=== PATIENT | female | born 1985 | race African-American/Black ===

== ENCOUNTER 2017-05-01 22:57 | Emergency (ER) | payer MEDICAID ==
[2017-05-01 23:16] VITALS: BP 160/103
--- NOTE | 2017-05-01 23:53 | ER Document Report ---
ED General - General Chief Complaint: Cold Symptoms Stated Complaint: COUGH,CONGESTION Time Seen by Provider: 05/01/17 23:52 Notes: 32-year-old female with morbid obesity and daily smoking presents with congestion cough and shortness of breath worse at night with subjective wheezing moderate. 3 days.. She is coughing up phlegm but no blood. She has no leg swelling or chest pain. This happens every year and she has had pneumonia before. TRAVEL OUTSIDE OF THE [place] IN LAST 30 DAYS: No - Related Data Allergies/Adverse Reactions: No Known Allergies Allergy (Verified 03/18/17 15:17) Past Medical History - Social History Smoking Status: Current Every Day Smoker Chew tobacco use (# tins/day): No Smoking Education Provided: Yes - The patient ED visit today was directly related to their abuse of tobacco. Frequency of alcohol use: Rare Drug Abuse: None Family History: Reviewed & Not Pertinent Patient has suicidal ideation: No Patient has homicidal ideation: No - Past Medical History Cardiac Medical History: Reports: Hx Hypertension Pulmonary Medical History: Reports: Hx Bronchitis Denies: Hx Tuberculosis Renal/ Medical History: Denies: Hx Kidney Stones, Hx Peritoneal Dialysis, Hx Pelvic Inflammatory Disease Psychiatric Medical History: Reports: Hx Depression Past Surgical History: Reports: Hx Section - x1, Hx Cholecystectomy. Denies: Hx Pacemaker - Immunizations Hx Diphtheria, Pertussis, Tetanus Vaccination: Yes Hx Pneumococcal Vaccination: 05/12/11 Review of Systems - Review of Systems Notes: REVIEW OF SYSTEMS GEN: Denies fever, chills, weight loss ENT: Denies sore throat, nasal discharge, ear pain EYES: Denies blurry vision, eye pain, discharge CV: Denies chest pain, palpitations, edema RESP: Cough congestion shortness of breath GI: Denies abdominal pain, nausea, vomiting, diarrhea MSK: Denies joint pain/swelling, edema, SKIN: Denies rash, skin lesions LYMPH: Denies swollen glands/lymph nodes NEURO: Denies headache, focal weakness or numbness, dizziness PSYCH: Denies depression, suicidal or homicidal ideation PHYSICAL EXAMINATION General: No distress, morbid obesity Head: Atraumatic, normocephalic ENT: Mouth normal, oropharynx moist, no exudates or tonsillar enlargement Eyes: Conjunctiva normal, pupils equal, lids normal Neck: No JVD, supple, no guarding CVS: Normal rate, regular rhythm, no murmurs Resp: No resp distress, equal and normal breath sounds bilaterally GI: Nondistended, soft, no tenderness to palpation, no rebound or guarding Ext: No deformities, no edema, normal range of motion in upper and lower ext Back: No CVA or midline TTP Skin: No rash, warm Lymphatic: No lymphadeopathy noted Neuro: Awake, alert. Face symmetric. GCS 15. Physical Exam - Vital signs Vitals: Temp Pulse Resp BP Pulse Ox 98.6 F 99 18 160/103 H 96 05/01/17 23:12 05/01/17 23:12 05/01/17 23:12 05/01/17 23:12 05/01/17 23:12 Course - Re-evaluation Re-evalutation: 05/01/17 23:58 . Morbidly obese smoker presents with cough congestion shortness of breath. She is not wheezing her oxygen level is normal, and she is well-appearing. Possible bronchitis but doubt pneumonia, no need for x-ray at this time. Will prescribe inhaler and gave smoking cessation counseling. I have discussed with the patient there likely diagnosis, aftercare plan, follow -up plans and my usual and customary return precautions. They verbalized understanding of this. - Vital Signs Vital signs: Temp Pulse Resp BP Pulse Ox 98.6 F 99 18 160/103 H 96 05/01/17 23:12 05/01/17 23:12 05/01/17 23:12 05/01/17 23:12 05/01/17 23:12 Discharge - Discharge Clinical Impression: Upper respiratory infection Qualifiers: URI type: unspecified URI Qualified Code(s): J06.9 - Acute upper respiratory infection, unspecified Condition: Good Disposition: HOME, SELF-CARE Instructions: Upper Respiratory Infection, or Child ([facility]) Prescriptions: Albuterol Sulfate [Proair HFA Inhalation Aerosol 8.5 gm MDI] 2 puff IH Q4H PRN # 1 mdi PRN Reason:
== END 2017-05-02 00:14 | disposition home or self-care (01) ==
LOC: ER 22:57
DX: J06.9 Acute upper respiratory infection, unspecified (principal); R05 Cough; R06.02 Shortness of breath; E66.01 Morbid (severe) obesity due to excess calories; Z68.45 Body mass index [BMI] 70 or greater, adult; I10 Essential (primary) hypertension; F17.200 Nicotine dependence, unspecified, uncomplicated; Z71.6 Tobacco abuse counseling; Z87.01 Personal history of pneumonia (recurrent)
CPT/HCPCS: 99283

== ENCOUNTER 2017-10-19 16:55 | Emergency (ER) | payer MEDICAID ==
--- NOTE | 2017-10-19 17:04 | ER Document Report ---
HPI - HPI Pain Level: 3 - REPRODUCTIVE Reproductive: REPORTS: : Past Medical History - Social History Family History: Reviewed & Not Pertinent - Past Medical History Cardiac Medical History: Reports: Hx Hypertension Pulmonary Medical History: Reports: Hx Bronchitis Denies: Hx Tuberculosis Renal/ Medical History: Denies: Hx Kidney Stones, Hx Peritoneal Dialysis, Hx Pelvic Inflammatory Disease Psychiatric Medical History: Reports: Hx Depression Past Surgical History: Reports: Hx Section - x1, Hx Cholecystectomy. Denies: Hx Pacemaker - Immunizations Hx Diphtheria, Pertussis, Tetanus Vaccination: Yes Hx Pneumococcal Vaccination: 05/12/11 Vertical Provider Document - INFECTION CONTROL TRAVEL OUTSIDE OF THE [place] IN LAST 30 DAYS: No Course - Vital Signs Vital signs: Temp Pulse Resp BP Pulse Ox 99.6 F 109 H 20 161/126 H 99 10/19/17 17:01 10/19/17 17:01 10/19/17 17:01 10/19/17 17:01 10/19/17 17:01 Discharge - Discharge Referrals: EMILIANA PARSONS PA-C [Primary Care Provider] - Follow up as needed
[2017-10-19] MEDS ORDERED: CLINDAMYCIN PHOSPHATE INJ 300 MG/2 ML SDV IV ONE (17:09)
[2017-10-19] MEDS ORDERED: NORMAL SALINE 1000 ML 1,000 ML IV ONE (17:09)
[2017-10-19] MEDS ORDERED: KETOROLAC TROMETHAMINE INJ/PF 30 MG/1 ML SDV IV ONE (17:09)
[2017-10-19] MEDS ORDERED: DEXAMETHASONE SOD PHOS INJ 10 MG/1 ML VIAL IV ONE (17:09)
--- NOTE | 2017-10-19 17:15 | ER Document Report ---
ED Medical Screen (RME) - General Chief Complaint: Cold Symptoms Stated Complaint: COUGHING/THROAT PAIN Time Seen by Provider: 10/19/17 17:04 Mode of Arrival: Ambulatory Information source: Patient Notes: 32-year-old morbidly obese female is complaining of sore throat tonsillitis since Friday. She did see her primary care doctor on Friday but the symptoms started after that. She is unable to eat or drink because of the pain. She does have hot potato voice but upon exam she does not have a peritonsillar abscess there is increased redness in the soft palate on the right but the uvula is midline and there is no edema. Bilateral tonsils are exudative with tender anterior cervical nodes. Her blood pressure is elevated 161/126 she states she took her blood pressure medicine this morning but she states it is like this because of the pain. We will recheck it and she denies diabetes. TRAVEL OUTSIDE OF THE [place] IN LAST 30 DAYS: No - Related Data Allergies/Adverse Reactions: No Known Allergies Allergy (Verified 03/18/17 15:17) Past Medical History - Past Medical History Cardiac Medical History: Reports: Hx Hypertension Pulmonary Medical History: Reports: Hx Bronchitis Denies: Hx Tuberculosis Renal/ Medical History: Denies: Hx Kidney Stones, Hx Peritoneal Dialysis, Hx Pelvic Inflammatory Disease Psychiatric Medical History: Reports: Hx Depression Past Surgical History: Reports: Hx Section - x1, Hx Cholecystectomy. Denies: Hx Pacemaker - Immunizations Hx Diphtheria, Pertussis, Tetanus Vaccination: Yes Physical Exam - Vital signs Vitals: Temp Pulse Resp BP Pulse Ox 99.6 F 109 H 20 161/126 H 99 10/19/17 17:10/19/17 17:10/19/17 17:01 10/19/17 17:01 10/19/17 17:01 Course - Vital Signs Vital signs: Temp Pulse Resp BP Pulse Ox 99.6 F 109 H 20 161/126 H 99 10/19/17 17:01 10/19/17 17:01 10/19/17 17:01 10/19/17 17:01 10/19/17 17:01 Doctor's Discharge - Discharge Referrals: EMILIANA PARSONS PA-C [Primary Care Provider] - Follow up as needed
--- NOTE | 2017-10-19 17:55 | ER Document Report ---
ED Medical Screen (RME) - General Chief Complaint: Cold Symptoms Stated Complaint: COUGHING/THROAT PAIN Time Seen by Provider: 10/19/17 17:04 Mode of Arrival: Ambulatory Notes: Patient is a 32-year-old female who presents emergency department the chief complaint of sore throat that started on Friday. Patient admits to muffled speech starting yesterday and inability to tolerate secretions for the past 48 hours. Patient denies any fevers and admits to shortness of breath. TRAVEL OUTSIDE OF THE [place] IN LAST 30 DAYS: No - Related Data Allergies/Adverse Reactions: No Known Allergies Allergy (Verified 03/18/17 15:17) Past Medical History - Past Medical History Cardiac Medical History: Reports: Hx Hypertension Pulmonary Medical History: Reports: Hx Bronchitis Denies: Hx Tuberculosis Renal/ Medical History: Denies: Hx Kidney Stones, Hx Peritoneal Dialysis, Hx Pelvic Inflammatory Disease Psychiatric Medical History: Reports: Hx Depression Past Surgical History: Reports: Hx Section - x1, Hx Cholecystectomy. Denies: Hx Pacemaker - Immunizations Hx Diphtheria, Pertussis, Tetanus Vaccination: Yes Physical Exam - Vital signs Vitals: Temp Pulse Resp BP Pulse Ox 99.6 F 109 H 20 161/126 H 99 10/19/17 17:01 10/19/17 17:01 10/19/17 17:01 10/19/17 17:01 10/19/17 17:01 - Notes Notes: HEENT: NCAT, pale conjunctiva, extraocular movements intact, pupils PERRL. external ear normal, no evidence of external auditory canal tenderness, blood/ drainage, cerumen impaction, TM intact without evidence of effusion, bulging, injection, MMM, Uvula midline. Airway patent. Evidence of right tonsillar enlargement, no visible peritonsillar abscess, retropharyngeal abscess. patients voice is muffled and continuously spitting into a cup Course - Vital Signs Vital signs: Temp Pulse Resp BP Pulse Ox 99.6 F 109 H 20 161/126 H 99 10/19/17 17:01 10/19/17 17:01 10/19/17 17:01 10/19/17 17:01 10/19/17 17:01 Doctor's Discharge - Discharge Referrals: EMILIANA PARSONS PA-C [Primary Care Provider] - Follow up as needed
[2017-10-19 18:28] LABS: ABSOLUTE BASOPHILS # (AUTO) 0.1 10^3/uL (0.0-0.2); ABSOLUTE LYMPHOCYTES (AUTO) 1.9 10^3/uL (0.5-4.7); ABSOLUTE NEUT (AUTO) 9.2 10^3/uL (1.7-8.2); BASOPHILS % (AUTO) 0.6 % (0-2); EOSINOPHILS % (AUTO) 0.4 % (0-6); HEMATOCRIT 45.2 % (36.0-47.0); HEMOGLOBIN 14.2 g/dL (12.0-15.5); LYMPHOCYTES % (AUTO) 15.4 % (13-45); MEAN CORPUSCULAR HEMOGLOBIN 22.9 pg (27.0-33.4); MEAN CORPUSCULAR HGB CONC 31.5 g/dL (32.0-36.0); MEAN CORPUSCULAR VOLUME 73 fl (80-97); MONOCYTES % (AUTO) 7.9 % (3-13); PLATELET COUNT 295 10^3/uL (150-450); RED BLOOD COUNT 6.21 10^6/uL (3.72-5.28); SEGMENTED NEUTROPHILS % (AUTO) 75.7 % (42-78); TOTAL CELLS COUNTED % (AUTO) 100 %; WHITE BLOOD COUNT 12.2 10^3/uL (4.0-10.5)
--- NOTE | 2017-10-19 18:49 | ER Document Report ---
ED General - General Chief Complaint: Cold Symptoms Stated Complaint: COUGHING/THROAT PAIN Time Seen by Provider: 10/19/17 17:04 Mode of Arrival: Ambulatory Notes: 32-year-old female presents emergency department with sore throat, right ear pain, cough for the last 2 days. Patient states that her daughter has similar symptoms. Patient's been taking [id number] medication with minimal relief of symptoms. Patient states that she is able to swallow and has been eating and drinking despite her throat pain. TRAVEL OUTSIDE OF THE [place] IN LAST 30 DAYS: No - HPI Onset: Last week Onset/Duration: Gradual Quality of pain: Achy Severity: Mild Associated symptoms: Nonproductive cough, Earache, Sore throat Exacerbated by: Denies Relieved by: Denies Similar symptoms previously: No Recently seen / treated by doctor: No - Related Data Allergies/Adverse Reactions: No Known Allergies Allergy (Verified 03/18/17 15:17) Past Medical History - General Information source: Patient - Social History Smoking Status: Former Smoker Family History: Reviewed & Not Pertinent - Past Medical History Cardiac Medical History: Reports: Hx Hypertension Pulmonary Medical History: Reports: Hx Bronchitis Denies: Hx Tuberculosis Renal/ Medical History: Denies: Hx Kidney Stones, Hx Peritoneal Dialysis, Hx Pelvic Inflammatory Disease Psychiatric Medical History: Reports: Hx Depression Past Surgical History: Reports: Hx Section - x1, Hx Cholecystectomy. Denies: Hx Pacemaker - Immunizations Hx Diphtheria, Pertussis, Tetanus Vaccination: Yes Hx Pneumococcal Vaccination: 05/12/11 Review of Systems - Review of Systems Constitutional: No symptoms reported EENT: Throat pain Cardiovascular: No symptoms reported Respiratory: Cough Gastrointestinal: No symptoms reported Genitourinary: No symptoms reported Musculoskeletal: No symptoms reported Skin: No symptoms reported Neurological/Psychological: No symptoms reported -: Yes All other systems reviewed and negative Physical Exam - Vital signs Vitals: Temp Pulse Resp BP Pulse Ox 99.6 F 109 H 20 161/126 H 99 10/19/17 17:01 10/19/17 17:01 10/19/17 17:01 10/19/17 17:01 10/19/17 17:01 - Notes Notes: PHYSICAL EXAMINATION: GENERAL: Well-appearing, well-nourished and in no acute distress. HEAD: Atraumatic, normocephalic. EYES: Pupils equal round and reactive to light, extraocular movements intact, conjunctiva are normal. ENT: Nares patent, No trismus. Erythema to the R posterior pharynx. Uvula midline. Tender anterior cervical lymph nodes. Handling secretions. NECK: Normal range of motion, supple, anterior cervical lymphadenopathy. LUNGS: Breath sounds clear to auscultation bilaterally and equal. No wheezes rales or rhonchi. HEART: Regular rate and rhythm without murmurs ABDOMEN: Soft, nontender, nondistended abdomen. No guarding, no rebound. No masses appreciated. Female : deferred Musculoskeletal: Normal range of motion, no pitting or edema. No cyanosis. NEUROLOGICAL: Cranial nerves grossly intact. Normal speech, normal gait. Normal sensory, motor exams PSYCH: Normal mood, normal affect. SKIN: Warm, Dry, normal turgor, no rashes or lesions noted. Course - Re-evaluation Re-evalutation: 10/19/17 22:[address] Sara Suarez, ENT, at [facility]. As the patient is not having difficulty breathing or swallowing and the size of the peritonsillar abscess is small, he would like the patient to follow up in his office tomorrow AM. He says he can see the patient at 8AM. I will provide the patient with his office address and phone number. Patient received clindamycin and steroids in the ED. He would like the patient to be discharged with a rx for clindamycin and predisone. I discussed the plan of care with the patient. She has transportation to Dr. Suarez's office in the AM. Patient is reliable. Patient told that if she begins having difficulty breathing or swallowing to return to the ED immediately. - Vital Signs Vital signs: Temp Pulse Resp BP Pulse Ox 99.6 F 109 H 21 H 157/105 H 95 10/19/17 17:01 10/19/17 17:01 10/19/17 20:01 10/19/17 20:01 10/19/17 20:01 - Laboratory Result Diagrams: 10/19/17 18:00 10/19/17 18:00 Laboratory results interpreted by me: 10/19/17 18:00 WBC 12.2 H RBC 6.21 H MCV 73 L MCH 22.9 L MCHC 31.5 L RDW 17.0 H Absolute Neutrophils 9.2 H Discharge - Discharge Clinical Impression: Peritonsillar abscess, Strep throat Condition: Stable Disposition: HOME, SELF-CARE Instructions: Strep Throat ([facility]), Kelley-Tonsillar Abscess ([facility]) Additional Instructions: Follow up with Dr. Sara Suarez in the office tomorrow: [address] [place], [address] Prescriptions: Clindamycin HCl [Cleocin 300 mg Capsule] 300 mg PO Q6 #28 capsule Prednisone 50 mg PO DAILY #5 tablet Referrals: EMILIANA PARSONS PA-C [Primary Care Provider] - Follow up as needed SARA SUAREZ MD [ACTIVE STAFF] - Follow up as needed
[2017-10-19] MEDS ORDERED: CLONIDINE HCL 0.1 MG TABLET PO ONE (18:52)
[2017-10-19 19:54] LABS: ANION GAP 14 (5-19); BLOOD UREA NITROGEN 9 mg/dL (7-20); CALCIUM 9.3 mg/dL (8.4-10.2); CARBON DIOXIDE 25 mmol/L (22-30); CHLORIDE 105 mmol/L (98-107); GLUCOSE 103 mg/dL (75-110); SODIUM 144.4 mmol/L (137-145)
--- NOTE | 2017-10-19 21:47 | RADIOLOGY REPORT (SQ) ---
EXAM DESCRIPTION: CT SOFT TISSUE NECK WITH COMPLETED DATE/TIME: 10/19/2017 8:49 pm REASON FOR STUDY: swelling to the R throat/neck COMPARISON: None. TECHNIQUE: Post IV contrasted scanning from skull base through lung apices with review of bone, soft tissue and lung windows. Reconstructed coronal and sagittal MPR images reviewed. All images stored on PACS. All CT scanners at this facility use dose modulation, iterative reconstruction, and/or weight based d osing when appropriate to reduce radiation dose to as low as reasonably achievable (ALARA). [facility]: Dose Right [facility]: CareDose [facility]: Dose Right [facility]: Teradose 4D [facility]: MX Logic CONTRAST TYPE AND DOSE: contrast/concentration: Isovue 370.00 mg/ml; Total Contrast Delivered: 75.0 ml; Total Saline Delivered: 55.0 ml RENAL FUNCTION: None required. The patient is less than 50 years old. RADIATION DOSE: CT Rad equipment meets quality standard of care and radiation dose reduction techniq ues were employed. CTDIvol: 21.0 mGy. DLP: 627 mGy-cm. . LIMITATIONS: There is artifact from the patient's body habitus. There is streak artifact from the d ental amalgam. FINDINGS: SKULL BASE: Intact. MAJOR SALIVARY GLANDS: No inflammatory changes. LYMPHADENOPATHY: There are bilateral enlarged cervical lymph nodes. A right internal jugular lymph c ramya lymph node is measuring 1.9 x 2.0 cm. The left internal jugular chain lymph node is measuring 1 .9 x 1.5 cm MUCOSAL MASSES OR ASYMMETRY: The palatine tonsils are enlarged. There is a 1.4 x 1.7 cm low attenuat ion area at the right tonsil. The adenoids are enlarged. LARYNX/CORDS: No obvious abnormal findings. VASCULAR STRUCTURES: The major vessels are patent. LUNG APICES: Clear. BONES: Intact. THYROID: No obvious masses. PARANASAL SINUSES: No air-fluid levels. OTHER: Radiopaque piercing is noted at the soft tissues overlying the right maxilla. IMPRESSION: 1. Enlarged adenoids and palatine tonsils. A 1.4 x 1.7 cm low attenuation area at the ri ght tonsil, may represent a peritonsillar abscess. 2. Bilateral cervical adenopathy. TECHNICAL DOCUMENTATION: JOB ID: [id number] CA- Quality ID # 436: Final reports with documentation of one or more dose reduction techniques (e.g., Au tomated exposure control, adjustment of the mA and/or kV according to patient size, use of iterative reconstruction technique) 2010 [employer]- All Rights Reserved Reading location - IP/workstation name: [email or web address]
[2017-10-19 21:55] VITALS: BP 157/105
== END 2017-10-19 23:00 | disposition home or self-care (01) ==
LOC: ER 16:55
DX: J36 Peritonsillar abscess (principal); B95.5 Unspecified streptococcus as the cause of diseases classified elsewhere; H92.01 Otalgia, right ear; R05 Cough; I10 Essential (primary) hypertension; Z87.891 Personal history of nicotine dependence
CPT/HCPCS: 99284; 96361; 96375; 96365; 36415; 87040; 87880; 84703; 85025; 80048; 70491; J3490 ×2; J1885; J7030; J1100

== ENCOUNTER 2018-08-11 15:43 | Emergency (ER) | payer MEDICAID ==
[2018-08-11 15:55] VITALS: BP 157/123
--- NOTE | 2018-08-11 16:24 | ER Document Report ---
HPI - HPI Time Seen by Provider: 08/11/18 16:06 Pain Level: 3 Notes: Patient is a 33-year-old female with no significant past medical history aside from hypertension and obesity who presents emergency department complaining of left pain near her deltoid that has been constant over the last day and a half. Patient states that the pain is worse after she gets done performing activities, but is described as mild. Pain does not radiate. She can isolate the one spot that hurts when she pushes on it to reproduce her symptoms. Denies drug allergies. No significant cardiopulmonary medical history. She is otherwise eating and drinking without difficulty. She is urinating normally and having normal bowel movements. She is able to ambulate without any worsening pain or dyspnea on exertion. She has not taken her blood pressure medicine in a couple weeks because she has been out. She is on lisinopril 10 mg daily. Denies any headache, fever, neck pain, URI, sore throat, chest pain, palpitations, syncope, cough, shortness of breath, wheeze, dyspnea, abdominal pain, nausea/vomiting/diarrhea, urinary retention, dysuria, hematuria, loss of control of bowel or bladder, numbness/tingling, saddle anesthesia, muscle paralysis/weakness, or rash. - ROS Systems Reviewed and Negative: Yes All other systems reviewed and negative - REPRODUCTIVE Reproductive: DENIES: : - DERM Skin Color: Normal Past Medical History - Social History Smoking Status: Current Every Day Smoker Frequency of alcohol use: None Drug Abuse: None Family History: Reviewed & Not Pertinent Patient has suicidal ideation: No Patient has homicidal ideation: No - Past Medical History Cardiac Medical History: Reports: Hx Hypertension Pulmonary Medical History: Reports: Hx Bronchitis Denies: Hx Tuberculosis Renal/ Medical History: Denies: Hx Kidney Stones, Hx Peritoneal Dialysis, Hx Pelvic Inflammatory Disease Psychiatric Medical History: Reports: Hx Depression Past Surgical History: Reports: Hx Section - x1, Hx Cholecystectomy. Denies: Hx Pacemaker - Immunizations Hx Diphtheria, Pertussis, Tetanus Vaccination: Yes Hx Pneumococcal Vaccination: 05/12/11 Vertical Provider Document - CONSTITUTIONAL Agree With Documented VS: Yes Notes: PHYSICAL EXAMINATION: GENERAL: Well-appearing, well-nourished and in no acute distress. HEAD: Atraumatic, normocephalic. EYES: Pupils equal round and reactive to light, extraocular movements intact, sclera anicteric, conjunctiva are normal. ENT: Nares patent and without discharge. oropharynx clear without exudates. No tonsilar hypertrophy or erythema. Moist mucous membranes. NECK: Normal range of motion, supple without lymphadenopathy LUNGS: Breath sounds clear to auscultation bilaterally and equal. No wheezes rales or rhonchi. HEART: Regular rate and rhythm without murmurs, rubs, gallops. Musculoskeletal: + reproducible tenderness when palpating the insertion of the deltoid muscle near the deltoid bursa. FROM to passive/active. Strength 5+/5. No asymmetry to the UE's b/l. N/V intact distal. Extremities: No cyanosis, clubbing, or edema b/l. Peripheral pulses 2+. Capillary refill less than 3 seconds. NEUROLOGICAL: Normal speech, normal gait. PSYCH: Normal mood, normal affect. SKIN: Warm, Dry, normal turgor, no rashes or lesions noted. - INFECTION CONTROL TRAVEL OUTSIDE OF THE [place] IN LAST 30 DAYS: No Course - Re-evaluation Re-evalutation: 08/11/18 Patient is an afebrile, well-hydrated, 33-year-old female who presents emergency department with left deltoid pain, suspect bursitis versus tendinitis. Vitals are acceptable without significant tachycardia, tachypnea, or hypoxia. PE is otherwise unremarkable for any neurovascular compromise, obvious tendon/ligament rupture, obvious fracture/dislocation, septic joint, DVT. Patient has reproducible tenderness at the deltoid bursa which correlates with her pain described. Patient otherwise does not have any and has not had any chest pain, dyspnea on exertion, shortness of breath. There is no asymmetry to her upper extremities or other evidence of DVT as her symptoms are on the lateral arm and not medial. She is nontoxic-appearing and tolerating p.o. without difficulty. EKG unremarkable. No labs or other imaging warranted. Low suspicion for any ACS, PE, pneumothorax, pericarditis, dissection, or otherwise stated above. Patient aware that condition can change and she needs to monitor symptoms and seek medical attention with acute changes. Patient to recheck with your PCM in 2-3 days. Return to the ED with any worsening/concerning symptoms. Patient is in agreement. - Vital Signs Vital signs: Temp Pulse Resp BP Pulse Ox 98.1 F 93 18 157/123 H 100 08/11/18 15:54 08/11/18 15:54 08/11/18 15:54 08/11/18 15:54 08/11/18 15:54 Discharge - Discharge Clinical Impression: Pain of left deltoid Condition: Stable Disposition: HOME, SELF-CARE Additional Instructions: Rest, Ice, Compression Tylenol/ibuprofen as needed Light stretches daily Strength exercises as able Moist heat and massage may help F/u with your PCP in 2-3 days for a recheck Consider consult(s) with Orthopedics/physical therapy for ongoing/worsening symptoms Return to the ED with any worsening symptoms and/or development of fever, headache, chest pain, palpitations, syncope, shortness of breath, trouble breathing, abdominal pain, n/v/d, muscle weakness/paralysis, numbness/tingling, swelling, redness, or other worsening symptoms that are concerning to you. Prescriptions: Lisinopril [Prinivil 10 mg Tablet] 10 mg PO DAILY #15 tablet Forms: Elevated Blood Pressure Referrals: EMILIANA PARSONS PA-C [Primary Care Provider] - 08/13/18 [facility] [Provider Group] - Follow up as needed
[2018-08-11] MEDS ORDERED: LISINOPRIL 10 MG TABLET PO ONE (16:25)
--- NOTE | 2018-08-11 17:26 | EKG REPORT ---
SEVERITY:- BORDERLINE ECG - SINUS RHYTHM NONSPECIFIC ST-T CHANGES- INFERIOR LEADS : Confirmed by: Dean Goel MD 11-Aug-2018 17:25:22
== END 2018-08-11 17:10 | disposition home or self-care (01) ==
LOC: ER 15:43
DX: M25.512 Pain in left shoulder (principal); I10 Essential (primary) hypertension; E66.9 Obesity, unspecified; Z79.899 Other long term (current) drug therapy; F17.200 Nicotine dependence, unspecified, uncomplicated
CPT/HCPCS: 93005; 99283; 93010; J3490

== ENCOUNTER 2019-02-22 07:55 | Emergency (ER) | payer MEDICAID ==
--- NOTE | 2019-02-22 08:49 | ER Document Report ---
ED Skin Rash/Insect Bite/Abscs - General Chief Complaint: Rash Stated Complaint: RASH Time Seen by Provider: 02/22/19 08:46 Primary Care Provider: ANDERSON SALAMANCA DO [ACTIVE STAFF] - Follow up in 1 week (for dermatology follow up) EMILIANA PARSONS PA-C [Primary Care Provider] - Follow up in 1 week TRAVEL OUTSIDE OF THE [place] IN LAST 30 DAYS: No - HPI Notes: 33 year old female to the ED with an itchy rash all over her body and possible yeast rash in her groin for the past three days. States that she has "bites all over her arms and legs". States she began to feel itchy and "wet" in her groin three days ago as well. Does report vaginal discharge and would like to be tested and treated for STD. States she has one partner and does not use any protection. Denies any other complaints. - Related Data Allergies/Adverse Reactions: No Known Allergies Allergy (Verified 08/11/18 15:49) Past Medical History - General Information source: Patient - Social History Smoking Status: Current Every Day Smoker Frequency of alcohol use: Occasional Drug Abuse: None Family History: Reviewed & Not Pertinent Patient has suicidal ideation: No Patient has homicidal ideation: No - Past Medical History Cardiac Medical History: Reports: Hx Hypertension Pulmonary Medical History: Reports: Hx Bronchitis Denies: Hx Tuberculosis Renal/ Medical History: Denies: Hx Kidney Stones, Hx Peritoneal Dialysis, Hx Pelvic Inflammatory Disease Psychiatric Medical History: Reports: Hx Depression Past Surgical History: Reports: Hx Section - x1, Hx Cholecystectomy. Denies: Hx Pacemaker - Immunizations Hx Diphtheria, Pertussis, Tetanus Vaccination: Yes Hx Pneumococcal Vaccination: 05/12/11 Review of Systems - Review of Systems Constitutional: denies: Chills, Fever EENT: No symptoms reported Cardiovascular: denies: Chest pain, Palpitations, Dyspnea, Syncope, Dizziness Respiratory: denies: Cough, Short of breath Gastrointestinal: denies: Abdominal pain, Diarrhea, Nausea, Vomiting Genitourinary: denies: Frequency, Flank pain, Hematuria, Incontinence Female Genitourinary: See HPI, Vaginal discharge Skin: See HPI, Rash Neurological/Psychological: No symptoms reported -: Yes All other systems reviewed and negative Physical Exam - Vital signs Vitals: Temp Pulse Resp BP Pulse Ox 98.2 F 105 H 20 159/130 H 98 02/22/19 08:04 10/14/19 08:04 02/22/19 08:04 02/22/19 08:04 02/22/19 08:04 Interpretation: Normal - General General appearance: Appears well, Alert Notes: morbidly obese - HEENT Head: Normocephalic, Atraumatic Eyes: Normal Pupils: PERRL - Respiratory Respiratory status: No respiratory distress Chest status: Nontender Breath sounds: Normal Chest palpation: Normal - Cardiovascular Rhythm: Regular Heart sounds: Normal auscultation Murmur: No - Abdominal Inspection: Normal Distension: No distension Bowel sounds: Normal Tenderness: Nontender Organomegaly: No organomegaly - Genitourinary External exam: Normal Bimanuel exam: Normal. No: Cervical motion tender, Bladder/Urethral tender, Adnexal mass, Adnexal tenderness, Uterus enlarged Notes: chaperoned by RN. Swabs obtained for wet prep, GC/chlamydia. To the groin there is a well demarcated erythematous rash with satellite lesions. no superimposed infection - Back Back: Normal, Nontender. No: CVA tenderness - Neurological Neuro grossly intact: Yes Cognition: Normal Orientation: AAOx4 [place] Coma Scale Eye Opening: Spontaneous [place] Coma Scale Verbal: Oriented [place] Coma Scale Motor: Obeys Commands [place] Coma Scale Total: 15 Speech: Normal Motor strength normal: LUE, RUE, LLE, RLE Sensory: Normal - Psychological Associated symptoms: Normal affect, Normal mood - Skin Skin Temperature: Warm Skin Color: Normal Skin irregularity: Rash - there are multiple areas of excoriation to the skin to the arms, legs, abdomen. There are no palpulesor involvement of the soles and palms of the feet. no superimposed infections. Noted excoriations. Course - Re-evaluation Re-evalutation: Impression: Tinea cruris, will treat with nystatin powder. Dermatitis to the body. will send home with benadryl. Patient agrees with the plan. Will give Derm follow up. STD checking -- she would like empiric treatment for GC/Chlam. PCP follow up. - Vital Signs Vital signs: Temp Pulse Resp BP Pulse Ox 97.6 F 75 20 141/90 H 96 02/22/19 11:30 02/22/19 11:30 02/22/19 11:30 02/22/19 11:30 02/22/19 11:30 - Laboratory Laboratory results interpreted by me: 02/22/19 10:25 Urine Protein 30 H Urine Blood SMALL H Ur Leukocyte Esterase LARGE H Discharge - Discharge Clinical Impression: Screening examination for STD (sexually transmitted disease), Dermatitis, Tinea cruris Condition: Stable Disposition: HOME, SELF-CARE Instructions: Contact Dermatitis ([facility]) Additional Instructions: TAke medicines as prescribed. Follow up with tree surgeon helper listed. Follow up with primary care. Practice safe sex. Prescriptions: Hydroxyzine HCl [Atarax 50 mg Tablet] 50 mg PO PRN PRN #14 tablet PRN Reason: Fluconazole [Diflucan] 150 mg PO ONCE PRN #1 tablet PRN Reason: Clotrimazole/Betamethasone Dip [Lotrisone Cream 15 gm] 1 applic TP BID #1 tube Referrals: EMILIANA PARSONS PA-C [Primary Care Provider] - Follow up in 1 week ANDERSON SALAMANCA DO [ACTIVE STAFF] - Follow up in 1 week (for dermatology follow up)
[2019-02-22] MEDS ORDERED: AZITHROMYCIN 250 MG TABLET PO ONE (10:32)
[2019-02-22] MEDS ORDERED: DIPHENHYDRAMINE HCL 25 MG CAPSULE PO ONE (10:36)
[2019-02-22] MEDS ORDERED: CEFTRIAXONE INJ 250 MG VIAL IM ONE (10:36)
[2019-02-22 10:42] LABS: BACTERIA (WET MOUNT) 4+ BACTERIA SEEN; EPITHELIALS (WET MOUNT) 4+ EPITHELIALS SEEN; RBCS (WET MOUNT) RARE RBCS SEEN; T.VAGINALIS (WET MOUNT) TRICHOMONAS SEEN; WBCS (WET MOUNT) 3+ WBCS SEEN; YEAST (WET MOUNT) NO YEAST SEEN
[2019-02-22 10:48] LABS: APPEARANCE,URINE CLOUDY; BILIRUBIN,URINE NEGATIVE (NEGATIVE); COLOR,URINE AMBER; GLUCOSE, URINE NEGATIVE (NEGATIVE); KETONES,URINE NEGATIVE (NEGATIVE); LEUKOCYTE ESTERASE,URINE LARGE (NEGATIVE); NITRITE,URINE NEGATIVE (NEGATIVE); PROTEIN,URINE 30 mg/dL (NEGATIVE); URINE SPECIFIC GRAVITY 1.025; UROBILINOGEN,URINE NEGATIVE mg/dL (<2.0)
[2019-02-22 11:32] VITALS: BP 141/90
[2019-02-22 12:13] LABS: CHLAM PCR NOT DETECTED (NOT DETECT)
== END 2019-02-22 11:34 | disposition home or self-care (01) ==
LOC: ER 07:55
DX: B35.6 Tinea cruris (principal); L30.9 Dermatitis, unspecified; Z20.2 Contact with and (suspected) exposure to infections with a predominantly sexual mode of transmission; F17.200 Nicotine dependence, unspecified, uncomplicated; E66.01 Morbid (severe) obesity due to excess calories; I10 Essential (primary) hypertension; Z90.49 Acquired absence of other specified parts of digestive tract
CPT/HCPCS: 99283; 96372; 87210; 81025; 81001; 87491; 87591; Q0144; J3490; J0696

== ENCOUNTER 2019-09-02 22:18 | Inpatient (IN) | payer MEDICAID ==
[2019-09-03] MEDS ORDERED: PIPERACILLIN/TAZOBACTAM 4.5 GM VIAL IV ONE (01:54)
[2019-09-03] MEDS ORDERED: VANCOMYCIN HCL INJ 1000 MG VIAL IV ONE (01:54)
[2019-09-03] MEDS ORDERED: NORMAL SALINE IV ONE (01:54)
[2019-09-03] MEDS ORDERED: ONDANSETRON HCL INJ/PF 4 MG/2 ML SDV IV ONE (02:02)
[2019-09-03] MEDS ORDERED: MORPHINE SULFATE 10 MG/ML INJ IV ONE (02:02)
--- NOTE | 2019-09-03 02:05 | ER Document Report ---
Entered by JENSEN MEHTA SCRIBE 09/03/19 0136 Acting as scribe for:KAREL CHRISTOPHER IV, MD ED Skin Rash/Insect Bite/Abscs - General Mode of Arrival: Ambulatory Information source: Patient TRAVEL OUTSIDE OF THE [place] IN LAST 30 DAYS: No - Related Data Home Medications: HTN <KAREL CHRISTOPHER IV - Last Filed: 09/03/19 05:57> <DOMINGUEZ RAI - Last Filed: 09/03/19 08:21> - General Chief Complaint: Abscess Stated Complaint: BUTT CHEEK PAIN Time Seen by Provider: 09/03/19 01:33 Primary Care Provider: EMILIANA PARSONS PA-C [Primary Care Provider] - Follow up as needed Notes: This 34 year old female patient presents to the ED today with complaints of a right gluteal abscess and pain for the past x8 days. Patient states that she has been trying to treat the abscess since onset, but notes that it is difficult for her to keep the area clean. She reports that the abscess "popped on its own" and that when her sister went to evaluate it, there was a "hole", so decided to come to the ED. She notes that her weight was checked x1.5-2 months ago and that she weighs approximately x415 lbs. (KAREL CHRISTOPHER IV) - Related Data Allergies/Adverse Reactions: No Known Allergies Allergy (Verified 09/02/19 22:32) Past Medical History - General Information source: Patient, [facility] - Social History Smoking Status: Former Smoker Cigarette use (# per day): No Chew tobacco use (# tins/day): No Smoking Education Provided: No Family History: Reviewed & Not Pertinent Patient has suicidal ideation: No Patient has homicidal ideation: No - Past Medical History Cardiac Medical History: Reports: Hx Hypertension Pulmonary Medical History: Reports: Hx Bronchitis Psychiatric Medical History: Reports: Hx Depression Past Surgical History: Reports: Hx Section - x1, Hx Cholecystectomy - Immunizations Hx Diphtheria, Pertussis, Tetanus Vaccination: Yes Hx Pneumococcal Vaccination: 05/12/11 <KAREL CHRISTOPHER IV - Last Filed: 09/03/19 05:57> Review of Systems - Review of Systems Constitutional: No symptoms reported EENT: No symptoms reported Cardiovascular: No symptoms reported Respiratory: No symptoms reported Gastrointestinal: No symptoms reported Genitourinary: No symptoms reported Female Genitourinary: No symptoms reported Musculoskeletal: See HPI, Other - Gluteal pain Skin: See HPI, Other - Abscess Hematologic/Lymphatic: No symptoms reported Neurological/Psychological: No symptoms reported -: Yes All other systems reviewed and negative <KAREL CHRISTOPHER IV - Last Filed: 09/03/19 05:57> Physical Exam - General General appearance: Alert - HEENT Head: Normocephalic, Atraumatic Eyes: Normal Pupils: PERRL - Respiratory Respiratory status: No respiratory distress Chest status: Nontender Breath sounds: Normal Chest palpation: Normal - Cardiovascular Rhythm: Regular, Tachycardia Heart sounds: Normal auscultation Murmur: No Friction rub: No Gallop: None auscultated - Abdominal Inspection: Morbidly Obese Distension: No distension Bowel sounds: Normal Tenderness: Nontender - Abdomen soft Organomegaly: No organomegaly - Back Back: Normal, Nontender - Extremities General upper extremity: Normal inspection General lower extremity: Normal inspection - Neurological Neuro grossly intact: Yes - Psychological Associated symptoms: Normal affect, Normal mood - Skin Skin Temperature: Warm Skin Moisture: Dry Skin Color: Normal Skin irregularity: Lesion - 1 cm lesion noted to right gluteus that is adjacent to mid gluteal crease. Foul-smelling purulent drainage appreciated., other - Right gluteus is significant for erythema, induration, tenderness to palpation and warm to the touch. <KAREL CHRISTOPHER IV - Last Filed: 09/03/19 05:57> - Vital signs Vitals: Temp Pulse Resp BP Pulse Ox 98.5 F 133 H 26 H 147/86 H 100 09/02/19 22:28 09/02/19 22:28 09/02/19 22:28 09/02/19 22:28 09/02/19 22:28 Course - Laboratory Result Diagrams: 09/03/19 02:06 09/03/19 02:06 - Transfer of Care Care transferred to following provider: DR. RAI AT 0600 <KAREL CHRISTOPHER IV - Last Filed: 09/03/19 05:57> - Laboratory Result Diagrams: 09/03/19 02:06 09/03/19 02:06 <DOMINGUEZ RAI - Last Filed: 09/03/19 08:21> - Re-evaluation Re-evalutation: 09/03/19 08:15 At 0600 hrs. I assumed care of this patient who had been initially worked up by Dr. Karel Christopher. She had an ultrasound of the buttock area that did not show an obvious drainable abscess. Clinically this looks like possible necrotizing fasciitis. Discussed with Sonia Macias from the hospitalist service and they will admit. Dr. Carlos from general surgery has seen the patient and plans to take her to the OR for debridement. She is being treated for sepsis at this time. I note that her transaminases are elevated. Lactate was 1.9. White count is 29,000 she has a temperature of 101.5 and is persi stently tachycardic. Blood cultures been drawn and she is gotten 30 cc/kg of crystalloids along with Zosyn and vancomycin IV. (DOMINGUEZ RAI) - Vital Signs Vital signs: Temp Pulse Resp BP Pulse Ox 101.7 F H 133 H 16 130/88 H 99 09/03/19 06:14 09/02/19 22:28 09/03/19 04:00 09/03/19 03:56 09/03/19 04:00 - Laboratory Laboratory results interpreted by me: 09/03/19 09/03/19 09/03/19 02:06 02:06 02:43 WBC 29.2 H Hgb 11.5 L Hct 34.7 L MCV 73 L MCH 24.1 L RDW 16.9 H Seg Neuts % (Manual) 83 H Band Neutrophils % 6 H Lymphocytes % (Manual) 7 L Abs Neuts (Manual) 26.0 H VBG pH 7.44 H Sodium 133.3 L Est GFR (MDRD) Non-Af 52 L Glucose 156 H AST 58 H ALT 38 H Alkaline Phosphatase 156 H Albumin 3.1 L Urine Protein Urine Blood Urine Urobilinogen 09/03/19 03:12 WBC Hgb Hct MCV MCH RDW Seg Neuts % (Manual) Band Neutrophils % Lymphocytes % (Manual) Abs Neuts (Manual) VBG pH Sodium Est GFR (MDRD) Non-Af Glucose AST ALT Alkaline Phosphatase Albumin Urine Protein 30 H Urine Blood SMALL H Urine Urobilinogen 2.0 H Discharge <KAREL CHRISTOPHER IV - Last Filed: 09/03/19 05:57> - Discharge Admitting Provider: Gilberto/Joey Unit Admitted: Medical Floor <DOMINGUEZ RAI E - Last Filed: 09/03/19 08:21> - Discharge Clinical Impression: Soft tissue infection Leukocytosis Qualifiers: Leukocytosis type: unspecified Qualified Code(s): D72.829 - Elevated white blood cell count, unspecified Condition: Serious Disposition: ADMITTED INPATIENT Referrals: EMILIANA PARSONS PA-C [Primary Care Provider] - Follow up as needed I personally performed the services described in the documentation, reviewed and edited the documentation which was dictated to the scribe in my presence, and it accurately records my words and actions.
[2019-09-03 02:29] LABS: HEMATOCRIT 34.7 % (36.0-47.0); HEMOGLOBIN 11.5 g/dL (12.0-15.5); MEAN CORPUSCULAR HEMOGLOBIN 24.1 pg (27.0-33.4); MEAN CORPUSCULAR HGB CONC 33.2 g/dL (32.0-36.0); MEAN CORPUSCULAR VOLUME 73 fl (80-97); PLATELET COUNT 343 10^3/uL (150-450); RED BLOOD COUNT 4.77 10^6/uL (3.72-5.28); RED CELL DISTRIBUTION WIDTH 16.9 % (11.5-14.0); WHITE BLOOD COUNT 29.2 10^3/uL (4.0-10.5)
[2019-09-03 02:33] LABS: INTERNATIONAL RATION (INR) 1.18
[2019-09-03 02:44] LABS: ALBUMIN 3.1 g/dL (3.5-5.0); ANION GAP 8 (5-19); ASPARTATE AMINO TRANSFERASE 58 U/L (14-36); BILIRUBIN,DIRECT 0.2 mg/dL (0.0-0.4); BILIRUBIN,TOTAL 0.6 mg/dL (0.2-1.3); CALCIUM 8.4 mg/dL (8.4-10.2); CARBON DIOXIDE 25 mmol/L (22-30); CHLORIDE 100 mmol/L (98-107); GLUCOSE 156 mg/dL (75-110); NEONATAL BILIRUBIN RESULT 0.4 mg/dL (0.1-1.1); POTASSIUM 4.3 mmol/L (3.6-5.0); TOTAL PROTEIN 7.1 g/dL (6.3-8.2)
[2019-09-03 02:49] LABS: ALKALINE PHOSPHATASE 156 U/L (38-126); BLOOD UREA NITROGEN 17 mg/dL (7-20)
[2019-09-03 02:56] LABS: ABSOLUTE LYMPHOCYTES# (MANUAL) 2.3 10^3/uL (0.5-4.7); ABSOLUTE MONOCYTES # (MANUAL) 0.9 10^3/uL (0.1-1.4); BAND NEUTROPHILS % (MANUAL) 6 % (3-5); BASOPHILS % (MANUAL) 0 % (0-2); EOSINOPHILS % (MANUAL) 0 % (0-6); LYMPHOCYTES % (MANUAL) 7 % (13-45); MONOCYTES % (MANUAL) 3 % (3-13); SEGMENTED NEUTROPHILS % (MAN) 83 % (42-78); TOTAL CELLS COUNTED 100
[2019-09-03 02:59] LABS: VENOUS BLOOD BASE EXCESS 1.5 mmol/L; VENOUS BLOOD HCO3 25.5 mmol/L (20-32); VENOUS BLOOD PH 7.44 (7.30-7.42)
[2019-09-03 02:59] LABS: ANISOCYTOSIS 1+; HYPOCHROMASIA SLIGHT; PLATELET COMMENT ADEQUATE; TEAR DROP CELLS SLIGHT; TOXIC GRANULATION SLIGHT
[2019-09-03 04:39] LABS: APPEARANCE,URINE TURBID; BILIRUBIN,URINE NEGATIVE (NEGATIVE); COLOR,URINE AMBER; GLUCOSE, URINE NEGATIVE (NEGATIVE); KETONES,URINE NEGATIVE (NEGATIVE); PROTEIN,URINE 30 mg/dL (NEGATIVE); URINE SPECIFIC GRAVITY 1.021
[2019-09-03] MEDS ORDERED: VANCOMYCIN HCL INJ 1000 MG VIAL ONE (05:42)
--- NOTE | 2019-09-03 06:47 | RADIOLOGY REPORT (SQ) ---
EXAM DESCRIPTION: US EXTREMITY MUSCULOSKELETAL LIMITED COMPLETED DATE/TME: 09/03/2019 05:34 CLINICAL HISTORY: 34 years Female, ? ABSCESS RIGHT BUTTOCK Comparison: None. LIMITATIONS: Body habitus. FINDINGS: Moderate subcutaneous and deep soft tissue edema in the right gluteal region corresponding to an area of symptomatology. The largest fluid pocket measures up to 0.9 x 0.3 x 0.3 cm. No encapsulated fluid. No abscess. IMPRESSION: Moderate soft tissue edema/cellulitis of the right gluteal region. Limitation.
[2019-09-03] MEDS ORDERED: KETOROLAC TROMETHAMINE INJ/PF 30 MG/1 ML SDV IV ONE (07:02)
--- NOTE | 2019-09-03 08:38 | PDOC CONSULTATION ---
Consultation Consult Date: 09/03/19 Attending physician:: CARIN BREWER IV Provider Consulted: NISHI MARTINEZ Consult reason:: buttock abscess History of Present Illness Admission Date/PCP: EMILIANA PARSONS PA-C History of Present Illness: FACUNDO MARTINEZ is a 34 year old female This 34 year old female patient presents to the ED today with complaints of a right gluteal abscess and pain for the past x8 days. Patient states that she has been trying to treat the abscess since onset, but notes that it is difficult for her to keep the area clean. She reports that the abscess "popped on its own" and that when her sister went to evaluate it, there was a "hole", so decided to come to the ED. She notes that her weight was checked x1.5-2 months ago and that she weighs approximately x415 lbs. Past Medical History Cardiac Medical History: Reports: Hypertension Pulmonary Medical History: Reports: Bronchitis Denies: Tuberculosis Psychiatric Medical History: Reports: Depression Past Surgical History Past Surgical History: Reports: Section - x1, Cholecystectomy Denies: Pacemaker Social History Smoking Status: Former Smoker Hx Recreational Drug Use: No Hx Prescription Drug Abuse: No Family History Family History: Reviewed & Not Pertinent Parental Family History Reviewed: No Children Family History Reviewed: NA Sibling(s) Family History Reviewed.: NA Medication/Allergy Home Medications: Escitalopram Oxalate [Lexapro] 10 mg PO DAILY 05/03/11 Valsartan [Diovan 80 mg Tablet] 160 mg PO DAILY 05/03/11 Ibuprofen [Motrin 600 Mg Tablet] 600 mg PO TID #30 tablet 08/02/13 Metformin HCl [Glucophage] 1,000 mg PO DAILY PRN 08/02/13 Tramadol HCl [Ultram 50 mg Tablet] 50 mg PO ASDIR PRN #7 tablet 08/02/13 Azithromycin [Zithromax 250 mg Tablet] 250 mg PO ASDIR PRN #6 tablet 04/01/14 Polymyxin B Sulf/Trimethoprim [Polytrim Eye Drops] 1 drop OD Q3H #10 ml 11/05/14 Sulfamethoxazole/Trimethoprim [Bactrim Ds Tablet] 1 each PO BID #14 tablet 03/18/17 Albuterol Sulfate [Proair HFA Inhalation Aerosol 8.5 gm MDI] 2 puff IH Q4H PRN #1 mdi 05/01/17 Clindamycin HCl [Cleocin 300 mg Capsule] 300 mg PO Q6 #28 capsule 10/19/17 Prednisone 50 mg PO DAILY #5 tablet 10/19/17 Lisinopril [Prinivil 10 mg Tablet] 10 mg PO DAILY #15 tablet 08/11/18 Clotrimazole/Betamethasone Dip [Lotrisone Cream 15 gm] 1 applic TP BID #1 tube 02/22/19 Fluconazole [Diflucan] 150 mg PO ONCE PRN #1 tablet 02/22/19 Hydroxyzine HCl [Atarax 50 mg Tablet] 50 mg PO PRN PRN #14 tablet 02/22/19 Allergies/Adverse Reactions: No Known Allergies Allergy (Verified 09/02/19 22:32) Review of Systems Constitutional: PRESENT: fatigue, fever(s) Eyes: ABSENT: as per HPI, visual disturbances, other Ears: ABSENT: as per HPI, hearing changes, other Nose, Mouth, and Throat: ABSENT: as per HPI, headache(s), mouth pain, sore throat, vertigo, other Breasts: ABSENT: as per HPI, other Cardiovascular: ABSENT: as per HPI, chest pain, dyspnea on exertion, edema, orthropnea, palpitations, other Respiratory: ABSENT: as per HPI, cough, dyspnea, hemoptysis, sputum, other Gastrointestinal: ABSENT: as per HPI, abdominal pain, bloating, coffee ground emesis, constipation, diarrhea, dysphagia, heartburn, hematemesis, hematochezia, melena, nausea, vomiting, other Integumentary: ABSENT: as per HPI, diaphoresis, erythema, lesions, pruritus, rash, wounds, other Neurological: ABSENT: as per HPI, abnormal gait, abnormal movements, abnormal speech, confusion, convulsions, dizziness, focal weakness, frequent falls, lack of coordination, memory loss, numbness, paresthesias, restless legs, syncope, tingling, tremor(s), vertigo, weakness, other Endocrine: ABSENT: as per HPI, cold intolerance, flushing, heat intolerance, menstrual abnormalities, polydipsia, polyphagia, polyuria, other Hematologic/Lymphatic: ABSENT: as per HPI, easy bleeding, easy bruising, lymphadenopathy, other Allergic/Immunologic: ABSENT: as per HPI, seasonal rhinorrhea, other Physical Exam Vital Signs: Temp Pulse Resp BP Pulse Ox 101.7 F H 133 H 16 130/88 H 99 09/03/19 06:14 09/02/19 22:28 09/03/19 04:00 09/03/19 03:56 09/03/19 04:00 Intake & Output 09/02/19 09/03/19 09/04/19 06:59 06:59 06:59 Weight 188.6 kg General appearance: PRESENT: morbidly obese Head exam: PRESENT: normocephalic Eye exam: PRESENT: EOMI Ear exam: PRESENT: normal external ear exam Mouth exam: PRESENT: dry mucosa Teeth exam: PRESENT: poor dentation Neck exam: PRESENT: full ROM Respiratory exam: PRESENT: clear to auscultation marleny Cardiovascular exam: PRESENT: RRR Pulses: PRESENT: normal radial pulses, normal femoral pulses Breast: PRESENT: Normal GI/Abdominal exam: PRESENT: soft Rectal exam: PRESENT: other - During of the skin over the entire area firmness and drainage of foul-smelling dark dishwater colored purulent fluid. Extremities exam: PRESENT: full ROM Neurological exam: PRESENT: alert, awake, oriented to person, oriented to place Psychiatric exam: PRESENT: appropriate affect Skin exam: PRESENT: dry Results Laboratory Results: 09/03/19 02:06 09/03/19 02:06 09/03/19 09/03/19 09/03/19 02:06 02:06 02:06 WBC 29.2 H RBC 4.77 Hgb 11.5 L Hct 34.7 L MCV 73 L MCH 24.1 L MCHC 33.2 RDW 16.9 H Plt Count 343 Seg Neutrophils % Not Reportable VBG pH VBG pCO2 VBG HCO3 VBG Base Excess Sodium 133.3 L Potassium 4.3 Chloride 100 Carbon Dioxide 25 Anion Gap 8 BUN 17 Creatinine 1.17 Est GFR ( Amer) > 60 Glucose 156 H Lactic Acid 1.6 Calcium 8.4 Total Bilirubin 0.6 AST 58 H Alkaline Phosphatase 156 H Total Protein 7.1 Albumin 3.1 L Serum HCG, Qual Urine Color Urine Appearance Urine pH Ur Specific Mora Urine Protein Urine Glucose (UA) Urine Ketones Urine Blood 09/03/19 09/03/19 09/03/19 02:06 02:43 03:12 WBC RBC Hgb Hct MCV MCH MCHC RDW Plt Count Seg Neutrophils % VBG pH 7.44 H VBG pCO2 38.0 VBG HCO3 25.5 VBG Base Excess 1.5 Sodium Potassium Chloride Carbon Dioxide Anion Gap BUN Creatinine Est GFR ( Amer) Glucose Lactic Acid Calcium Total Bilirubin AST Alkaline Phosphatase Total Protein Albumin Serum HCG, Qual NEGATIVE Urine Color KAMALA Urine Appearance TURBID Urine pH 5.0 Ur Specific Mora 1.021 Urine Protein 30 H Urine Glucose (UA) NEGATIVE Urine Ketones NEGATIVE Urine Blood SMALL H 09/03/19 06:16 WBC RBC Hgb Hct MCV MCH MCHC RDW Plt Count Seg Neutrophils % VBG pH VBG pCO2 VBG HCO3 VBG Base Excess Sodium Potassium Chloride Carbon Dioxide Anion Gap BUN Creatinine Est GFR ( Amer) Glucose Lactic Acid 1.9 Calcium Total Bilirubin AST Alkaline Phosphatase Total Protein Albumin Serum HCG, Qual Urine Color Urine Appearance Urine pH Ur Specific Mora Urine Protein Urine Glucose (UA) Urine Ketones Urine Blood Impressions: Extremity Ultrasound 09/03/19 05:34 IMPRESSION: Moderate soft tissue edema/cellulitis of the right gluteal region. Limitation. Assessment & Plan - Plan Summary Plan Summary: Impression is a large perirectal buttock abscess with necrosis and skin blistering consistent with a early necrotizing infection of the inferior medial buttock eagle anal area. Consistent with a possible necrotizing fasciitis of the right inferior medial buttock. Explained to the patient if this is a serious soft tissue infection and it could extend into her rectum which would require extensive debridement of the rectum and possible colostomy. We will plan on operative debridement IV antibiotics and IV fluids. The risks and benefits of the procedure which include bleeding infection recurrence pulmonary embolism stroke myocardial infarction and been discussed with the patient She understands she may need repeat surgeries and further debridement and a possible colostomy She understands and agrees to proceed.
[2019-09-03] MEDS ORDERED: SUCCINYLCHOLINE CHLORIDE INJ 200 MG/10 ML VIAL ONE (09:52)
[2019-09-03] MEDS ORDERED: DEXTROSE 40% GEL 15 GM TUBE PO PRN ×2 (11:14)
[2019-09-03] MEDS ORDERED: ONDANSETRON HCL INJ/PF 4 MG/2 ML SDV IV PRN (11:14)
[2019-09-03] MEDS ORDERED: MAG HYDROX/AL HYDROX/SIMETH SUSP 30 ML UDCUP PO PRN (11:14)
[2019-09-03] MEDS ORDERED: GLUCAGON,HUMAN RECOMB 1 MG INJ SUBCUT PRN (11:14)
[2019-09-03] MEDS ORDERED: DEXTROSE 50%-WATER 25 GM/50 ML DISP.SYRIN IV PRN ×2 (11:14)
[2019-09-03] MEDS ORDERED: ALBUTEROL SULFATE 0.083% NEB 2.5 MG/3 ML AMPUL NEB PRN (11:14)
[2019-09-03] MEDS ORDERED: ACETAMINOPHEN 325 MG TABLET PO PRN (11:14)
[2019-09-03] MEDS ORDERED: LIDOCAINE 2% INJ-PF (100 MG/5 ML) SYRINGE ONE (11:29)
[2019-09-03] MEDS ORDERED: MIDAZOLAM 2 MG/2 ML INJ ONE (11:29)
[2019-09-03] MEDS ORDERED: VANCOMYCIN HCL 0 MG in DEXTROSE 5%-WATER 250 ML IV NR (11:30)
[2019-09-03] MEDS ORDERED: HYDROMORPHONE HCL INJ/PF 2 MG/ML AMPULE ONE (11:30)
[2019-09-03] MEDS ORDERED: ONDANSETRON HCL INJ/PF 4 MG/2 ML SDV ONE (11:30)
[2019-09-03] MEDS ORDERED: PROPOFOL INJ 200 MG/20 ML VIAL IV ONE (11:31)
[2019-09-03] MEDS ORDERED: FENTANYL CITRATE INJ/PF 100 MCG/2 ML AMPUL ONE (11:46)
[2019-09-03] MEDS ORDERED: ESCITALOPRAM OXALATE 10 MG TABLET PO SCH (12:00)
[2019-09-03] MEDS ORDERED: VANCOMYCIN HCL 1,500 MG in DEXTROSE 5%-WATER 250 ML IV ONE (12:00)
[2019-09-03] MEDS ORDERED: LIDOCAINE 1% INJ-PF (10 MG/ML) 30 ML SDV ONE (12:27)
[2019-09-03] MEDS ORDERED: PROMETHAZINE HCL INJ 25 MG/1 ML VIAL IV PRN (13:58)
[2019-09-03] MEDS ORDERED: MEPERIDINE HCL/PF INJ 25 MG/1 ML DISP.SYRIN IV PRN (13:58)
[2019-09-03] MEDS ORDERED: DIPHENHYDRAMINE HCL 50 MG/ML VIAL IV PRN (13:58)
[2019-09-03] MEDS ORDERED: FENTANYL CITRATE INJ/PF 100 MCG/2 ML AMPUL IV PRN ×3 (13:58)
[2019-09-03] MEDS ORDERED: MORPHINE SULFATE 10 MG/ML INJ IV PRN (13:58)
[2019-09-03] MEDS ORDERED: HEPARIN SOD (PORCINE) 5,000 UNIT/ML 1 ML VIAL SUBCUT SCH (14:00)
--- NOTE | 2019-09-03 14:25 | Operative Report ---
Nonrecallable Operative Report DATE OF SURGERY: 09/03/19 PREOPERATIVE DIAGNOSIS: Perianal buttock abscess right buttock POSTOPERATIVE DIAGNOSIS: Renal buttock abscess right buttock OPERATION: Wide excisional debridement of right buttock and eagle-anal abscess SURGEON: NISHI MARTINEZ 1[employer] COORDINATOR: TEVIN ESCOTO ANESTHESIA: GA TISSUE REMOVED OR ALTERED: Buttock skin and fat tissue COMPLICATIONS: None ESTIMATED BLOOD LOSS: 200 cc INTRAOPERATIVE FINDINGS: See dictation PROCEDURE: Patient was initially brought to the operating room awake alert and placed on the operative table and attempted spinal anesthetic was done after multiple attempts by anesthesia they were unable to place a spinal anesthetic and therefore the patient was wheeled out of the room and purred COVID-19 protocol was placed in a negative pressure room and induced under general anesthesia she was then brought back to the operating room. She was placed on the operating table in a left lateral decubitus position with the right buttock up. The buttock and anus were prepped and draped in usual sterile manner for the procedure. Patient had a very large necrosing abscess in her right buttock that extended down from the mid buttock to the buttock cleft and then inferior to the eagle-rectal area. We made a large elliptical incision around the abscess approximately 8 cm wide by 25 cm long she was morbidly obese and had a quite a large buttock. We carried our dissection down through s ubcutaneous tissue to the fatty tissue noting area of dishwater type fluid very foul-smelling necrotic tissue all the way to the gluteus muscle. We excised the fat and necrotic tissue up off the gluteus muscle and continue that inferiorly to almost reaching the eagle-rectum. I did not breach the wall of the rectum as a had one finger in the rectum and was able to palpated in the dissecting field. Once we removed all the necrotic foul-smelling fatty tissue we got the tissue back down to clean bleeding fat or muscle of the gluteus delon. We then copiously irrigated the wound with normal saline suctioned dry. Packed with a Betadine soaked sponge. Sterile dressing was applied which completed the procedure. Estimated blood loss is 200 cc sponge needle counts were correct x2. She was th en transferred back to the recovery room intubated for extubation in the negative pressure room. SELENA Crespo was present for the entire case for help with wound retraction wound closure
[2019-09-03] MEDS ORDERED: POTASSI CL 20 MEQ/D5-1/2NS 1L 1,000 ML IV PRN (14:30)
[2019-09-03] MEDS: PIPERACILLIN SODIUM/TAZOBACTAM 3.375 GM in NORMAL SALINE 100 ML IV SCH ×2 (16:41→17:49)
--- NOTE | 2019-09-03 17:22 | PDOC H&P ---
History of Present Illness Admission Date/PCP: 09/03/19 09:41 EMILIANA PARSONS PA-C Patient complains of: buttocks pain History of Present Illness: FACUNDO MARTINEZ is a 34 year old female with a past medical history of hypertension, depression, and morbid obesity who presented to the emergency department today with complaints of right buttocks pain. Evaluation emergency department revealed normal temperature, tachycardia 133, acceptable blood pressure, tachypnea, 100% on room air. Leukocytosis (WBCs 29.2 with a left-sided shift), mild anemia, Chemistry revealing elevated glucose 156 mildly elevated LFTs, and a negative urinalysis. Ultrasound revealed soft t issue erythema/cellulitis to the right gluteal region. Patient body habitus prevents CT scanning. She is referred to the hospital service for admission and management of the above-stated complaints and findings with surgery consulted. Past Medical History Cardiac Medical History: Reports: Hypertension Pulmonary Medical History: Reports: Bronchitis Denies: Tuberculosis EENT Medical History: Reports: None Neurological Medical History: Reports: None Endocrine Medical History: Reports: Obesity Renal/ Medical History: Reports: None Malignancy Medical History: Reports: None GI Medical History: Reports: None Musculoskeltal Medical History: Reports: None Skin Medical History: Reports: None Psychiatric Medical History: Reports: Depression Traumatic Medical History: Reports: None Hematology: Reports: None Infectious Medical History: Reports: None Past Surgical History Past Surgical History: Reports: Section - x1, Cholecystectomy Denies: Pacemaker Social History Information Source: Patient Lives with: Family Smoking Status: Former Smoker Electronic Cigarette use?: No Last Time Smoked: month ago Frequency of Alcohol Use: Occasional Hx Recreational Drug Use: No Hx Prescription Drug Abuse: No - Advance Directive Resuscitation Status: Full Code Family History Family History: Reviewed & Not Pertinent Parental Family History Reviewed: Yes Children Family History Reviewed: Yes Sibling(s) Family History Reviewed.: Yes Medication/Allergy Home Medications: Escitalopram Oxalate [Lexapro] 10 mg PO DAILY 05/03/11 Ibuprofen [Motrin 600 Mg Tablet] 600 mg PO TID #30 tablet 08/02/13 Lisinopril [Prinivil 10 mg Tablet] 10 mg PO DAILY #15 tablet 08/11/18 Albuterol Sulfate [Proair HFA Inhalation Aerosol 8.5 gm MDI] 2 puff IH Q4HP PRN 09/03/19 Allergies/Adverse Reactions: No Known Allergies Allergy (Verified 09/02/19 22:32) Review of Systems Constitutional: ABSENT: chills, fever(s), headache(s), weight gain, weight loss Eyes: ABSENT: visual disturbances Ears: ABSENT: hearing changes Cardiovascular: ABSENT: chest pain, dyspnea on exertion, edema, orthropnea, palpitations Respiratory: ABSENT: cough, hemoptysis Gastrointestinal: ABSENT: abdominal pain, constipation, diarrhea, hematemesis, hematochezia, nausea, vomiting Genitourinary: ABSENT: dysuria, hematuria Musculoskeletal: ABSENT: joint swelling Integumentary: PRESENT: as per HPI, wounds. ABSENT: rash Neurological: ABSENT: abnormal gait, abnormal speech, confusion, dizziness, focal weakness, syncope Psychiatric: ABSENT: anxiety, depression, homidical ideation, suicidal ideation Endocrine: ABSENT: cold intolerance, heat intolerance, polydipsia, polyuria Hematologic/Lymphatic: ABSENT: easy bleeding, easy bruising Physical Exam Vital Signs: Temp Pulse Resp BP Pulse Ox 98.4 F 105 H 20 130/70 H 96 09/03/19 15:14 09/03/19 15:14 09/03/19 15:14 09/03/19 15:14 09/03/19 15:50 Intake & Output 09/02/19 09/03/19 09/04/19 06:59 06:59 06:59 Intake Total 6560 Output Total 0 Balance 6560 Weight 188.6 kg General appearance: PRESENT: no acute distress, cooperative, morbidly obese, well-developed, well-nourished Head exam: PRESENT: atraumatic, normocephalic Eye exam: PRESENT: conjunctiva pink, EOMI, PERRLA. ABSENT: scleral icterus Mouth exam: PRESENT: moist, tongue midline Respiratory exam: PRESENT: clear to auscultation marleny, decreased breath sounds - Diminished throughout; secondary to body habitus, symmetrical, unlabored, other - supplemental oxygen via NC. ABSENT: rales, rhonchi, wheezes Cardiovascular exam: PRESENT: RRR. ABSENT: diastolic murmur, rubs, systolic murmur Vascular exam: PRESENT: normal capillary refill GI/Abdominal exam: PRESENT: normal bowel sounds, soft. ABSENT: distended, guarding, rebound, tenderness Rectal exam: PRESENT: deferred Extremities exam: PRESENT: full ROM. ABSENT: calf tenderness, clubbing, pedal edema Neurological exam: PRESENT: alert, awake, oriented to person, oriented to place, oriented to time, oriented to situation, CN II-XII grossly intact. ABSENT: motor sensory deficit Psychiatric exam: PRESENT: appropriate affect, normal mood. ABSENT: homicidal ideation, suicidal ideation Skin exam: PRESENT: dry, warm. ABSENT: cyanosis, intact - Wound to right buttocks with surgical dressing in place, rash Results Laboratory Results: 09/03/19 02:06 09/03/19 02:06 09/03/19 09/03/19 09/03/19 02:06 02:06 02:06 WBC 29.2 H RBC 4.77 Hgb 11.5 L Hct 34.7 L MCV 73 L MCH 24.1 L MCHC 33.2 RDW 16.9 H Plt Count 343 Seg Neutrophils % Not Reportable VBG pH VBG pCO2 VBG HCO3 VBG Base Excess Sodium 133.3 L Potassium 4.3 Chloride 100 Carbon Dioxide 25 Anion Gap 8 BUN 17 Creatinine 1.17 Est GFR ( Amer) > 60 Glucose 156 H Lactic Acid 1.6 Calcium 8.4 Total Bilirubin 0.6 AST 58 H Alkaline Phosphatase 156 H Total Protein 7.1 Albumin 3.1 L Serum HCG, Qual Urine Color Urine Appearance Urine pH Ur Specific Warren Urine Protein Urine Glucose (UA) Urine Ketones Urine Blood 09/03/19 09/03/19 09/03/19 02:06 02:43 03:12 WBC RBC Hgb Hct MCV MCH MCHC RDW Plt Count Seg Neutrophils % VBG pH 7.44 H VBG pCO2 38.0 VBG HCO3 25.5 VBG Base Excess 1.5 Sodium Potassium Chloride Carbon Dioxide Anion Gap BUN Creatinine Est GFR ( Amer) Glucose Lactic Acid Calcium Total Bilirubin AST Alkaline Phosphatase Total Protein Albumin Serum HCG, Qual NEGATIVE Urine Color KAMALA Urine Appearance TURBID Urine pH 5.0 Ur Specific Warren 1.021 Urine Protein 30 H Urine Glucose (UA) NEGATIVE Urine Ketones NEGATIVE Urine Blood SMALL H 09/03/19 09/03/19 06:16 09:09 WBC RBC Hgb Hct MCV MCH MCHC RDW Plt Count Seg Neutrophils % VBG pH VBG pCO2 VBG HCO3 VBG Base Excess Sodium Potassium Chloride Carbon Dioxide Anion Gap BUN Creatinine Est GFR ( Amer) Glucose Lactic Acid 1.9 1.2 Calcium Total Bilirubin AST Alkaline Phosphatase Total Protein Albumin Serum HCG, Qual Urine Color Urine Appearance Urine pH Ur Specific Warren Urine Protein Urine Glucose (UA) Urine Ketones Urine Blood 09/03/19 14:00 Buttocks - Abscess Gram Stain - Final Impressions: Extremity Ultrasound 09/03/19 05:34 IMPRESSION: Moderate soft tissue edema/cellulitis of the right gluteal region. Limitation. Assessment and Plan - Diagnosis (1) Perirectal abscess Is this a current diagnosis for this admission?: Yes Plan: Now status post surgical I&D by Dr. Carlos. Wound and blood cultures are pending. Surgery is consulted; primary plan per their expertise. Patient is admitted to the medical floor. She has been empirically placed on IV vancomycin and Zosyn. Antiemetics and analgesics as needed. (2) Morbid obesity with BMI of 60.0-69.9, adult Is this a current diagnosis for this admission?: Yes Plan: BMI 69.2. The patient's super morbid obesity requires additional nursing support. Bariatric bed. She is at risk for further wound breakdown and/or respiratory complications. Lifestyle modification dietary discretion are strongly advised. Will check TSH, A1c, and lipid panel with a.m. lab work. Registered dietitian is consulted. (3) Hypertension Is this a current diagnosis for this admission?: Yes Plan: Continue home dose Lisinopril. IV hydralazine as needed for blood pressure control. Appropriate pain control. Cardiac diet. (4) Depression Is this a current diagnosis for this admission?: Yes Plan: Continue home dose Lexapro. - Time Time Spent with patient: 35 or more minutes Medications reviewed and adjusted accordingly: Yes Anticipated discharge: SNF - vs LTAC for wound care, Other
[2019-09-03] MEDS: MORPHINE SULFATE 10 MG/ML INJ IV PRN (17:48)
[2019-09-03] MEDS: DOCUSATE SODIUM 100 MG CAPSULE PO SCH (17:49)
[2019-09-03] MEDS: ESCITALOPRAM OXALATE 10 MG TABLET PO SCH (17:49)
[2019-09-03] MEDS: NORMAL SALINE 1000 ML 1,000 ML IV PRN (17:50)
[2019-09-03] MEDS: VANCOMYCIN HCL 1,250 MG in DEXTROSE 5%-WATER 250 ML IV SCH (21:48)
[2019-09-03] MEDS: FAMOTIDINE INJ/PF 20 MG/2 ML SDV IV SCH (21:48)
[2019-09-03] MEDS: HEPARIN SOD (PORCINE) 5,000 UNIT/ML 1 ML VIAL SUBCUT SCH (21:48)
[2019-09-03] MEDS ORDERED: FAMOTIDINE INJ/PF 20 MG/2 ML SDV IV SCH (22:00)
[2019-09-04] MEDS: PIPERACILLIN SODIUM/TAZOBACTAM 3.375 GM in NORMAL SALINE 100 ML IV SCH ×5 (00:27→23:51)
[2019-09-04] MEDS: MORPHINE SULFATE 10 MG/ML INJ IV PRN ×3 (00:28→20:18)
[2019-09-04 05:35] LABS: HEMATOCRIT 28.5 % (36.0-47.0); MEAN CORPUSCULAR HEMOGLOBIN 23.8 pg (27.0-33.4); MEAN CORPUSCULAR HGB CONC 32.6 g/dL (32.0-36.0); MEAN CORPUSCULAR VOLUME 73 fl (80-97); PLATELET COUNT 299 10^3/uL (150-450); WHITE BLOOD COUNT 27.1 10^3/uL (4.0-10.5)
[2019-09-04 05:47] LABS: HEMOGLOBIN 9.3 g/dL (12.0-15.5)
[2019-09-04 05:51] LABS: BLOOD UREA NITROGEN 12 mg/dL (7-20); CALCIUM 7.6 mg/dL (8.4-10.2); GLUCOSE 128 mg/dL (75-110); POTASSIUM 4.5 mmol/L (3.6-5.0); TRIGLYCERIDES 144 mg/dL (<150)
[2019-09-04 05:56] LABS: ANION GAP 5 (5-19); CARBON DIOXIDE 24 mmol/L (22-30); CHLORIDE 106 mmol/L (98-107)
[2019-09-04] MEDS: HEPARIN SOD (PORCINE) 5,000 UNIT/ML 1 ML VIAL SUBCUT SCH ×3 (05:59→21:34)
[2019-09-04 06:03] LABS: DIRECT LDL 52 mg/dL (<100)
[2019-09-04] MEDS: VANCOMYCIN HCL 1,250 MG in DEXTROSE 5%-WATER 250 ML IV SCH ×3 (06:08→21:34)
[2019-09-04 06:35] LABS: ABSOLUTE LYMPHOCYTES# (MANUAL) 1.1 10^3/uL (0.5-4.7); ABSOLUTE MONOCYTES # (MANUAL) 1.9 10^3/uL (0.1-1.4); BASOPHILS % (MANUAL) 0 % (0-2); EOSINOPHILS % (MANUAL) 0 % (0-6); LYMPHOCYTES % (MANUAL) 4 % (13-45); MONOCYTES % (MANUAL) 7 % (3-13); SEGMENTED NEUTROPHILS % (MAN) 89 % (42-78); TOTAL CELLS COUNTED 100
[2019-09-04 06:36] LABS: ANISOCYTOSIS 1+; OVALOCYTES 1+; PLATELET COMMENT ADEQUATE; POIKILOCYTOSIS 1+; TARGET CELLS SLIGHT; TOXIC GRANULATION 1+
--- NOTE | 2019-09-04 09:37 | PDOC PROGRESS REPORT ---
Subjective Progress Note for:: 09/04/19 Reason For Visit: SEPSIS,BUTTOCKS ABSCESS Physical Exam Vital Signs: Temp Pulse Resp BP Pulse Ox 99.4 F 104 H 18 111/62 97 09/04/19 08:19 09/04/19 08:19 09/04/19 08:19 09/04/19 08:19 09/04/19 08:19 Intake & Output 09/03/19 09/04/19 09/05/19 06:59 06:59 06:59 Intake Total 7792 Output Total 90 Balance 7702 Weight 188.6 kg 213.1 kg Results Laboratory Results: 09/04/19 05:20 09/04/19 05:20 09/03/19 09/04/19 09/04/19 09:09 05:20 05:20 WBC 27.1 H RBC 3.90 Hgb 9.3 L D Hct 28.5 L MCV 73 L MCH 23.8 L MCHC 32.6 RDW 17.0 H Plt Count 299 Seg Neutrophils % Not Reportable Sodium 135.1 L Potassium 4.5 Chloride 106 Carbon Dioxide 24 Anion Gap 5 BUN 12 Creatinine 0.93 Est GFR ( Amer) > 60 Glucose 128 H Lactic Acid 1.2 Calcium 7.6 L Triglycerides 144 Cholesterol 86.40 LDL Cholesterol Direct 52 VLDL Cholesterol 29.0 HDL Cholesterol 12 L TSH 09/04/19 05:20 WBC RBC Hgb Hct MCV MCH MCHC RDW Plt Count Seg Neutrophils % Sodium Potassium Chloride Carbon Dioxide Anion Gap BUN Creatinine Est GFR ( Amer) Glucose Lactic Acid Calcium Triglycerides Cholesterol LDL Cholesterol Direct VLDL Cholesterol HDL Cholesterol TSH 3.57 09/03/19 02:06 Blood Blood Culture (PCR) - Final Staphylococcus Species 09/03/19 14:00 Buttocks - Abscess Gram Stain - Final Impressions: Extremity Ultrasound 09/03/19 05:34 IMPRESSION: Moderate soft tissue edema/cellulitis of the right gluteal region. Limitation. Assessment & Plan - Diagnosis (1) Morbid obesity with BMI of 70 and over, adult Is this a current diagnosis for this admission?: Yes (2) Necrotizing soft tissue infection Is this a current diagnosis for this admission?: Yes - Plan Summary Plan Summary: This is a 34-year-old morbidly obese female with a necrotizing soft tissue infection of the buttock and perirectal area. Her dressing was changed by me today. There is no sign of ongoing necrosis within the wound. The edges of the wound appear healthy. The wound was packed with Kerlix. Plan for damp dressing changes twice daily. Close observation will be mandatory for the wound. She may require serial debridements, if further necrosis develops. Continue current antibiotics. Surgery will follow this patient closely with you.
[2019-09-04] MEDS: FAMOTIDINE INJ/PF 20 MG/2 ML SDV IV SCH ×2 (09:40→21:34)
[2019-09-04] MEDS: ESCITALOPRAM OXALATE 10 MG TABLET PO SCH (09:41)
[2019-09-04] MEDS: LISINOPRIL 10 MG TABLET PO SCH (09:41)
[2019-09-04] MEDS: DOCUSATE SODIUM 100 MG CAPSULE PO SCH ×2 (09:41→17:16)
[2019-09-04] MEDS ORDERED: MORPHINE SULFATE 10 MG/ML INJ IV ONE (10:00)
[2019-09-04] MEDS: IBUPROFEN 800 MG TABLET PO SCH ×2 (11:55→17:16)
[2019-09-04] MEDS: NORMAL SALINE 1000 ML 1,000 ML IV PRN (11:56)
[2019-09-04] MEDS ORDERED: DEXTROSE 50%-WATER 25 GM/50 ML DISP.SYRIN IV PRN ×2 (11:58)
[2019-09-04] MEDS ORDERED: DEXTROSE 40% GEL 15 GM TUBE PO PRN ×2 (11:58)
[2019-09-04] MEDS ORDERED: GLUCAGON,HUMAN RECOMB 1 MG INJ IM PRN (11:58)
--- NOTE | 2019-09-04 17:02 | PDOC PROGRESS REPORT ---
Subjective Progress Note for:: 09/04/19 Subjective:: FACUNDO MARTINEZ is a 34 year old female with a past medical history of hypertension, depression, and morbid obesity who was admitted 09/03/2019 with a perirectal abscess requiring surgical intervention. Patient was seen on morning rounds. She is found resting in bed, comfortably, on room air. She reports buttocks pain following dressing change this morning. Otherwise, she denies all symptoms of fever, chills, chest pain, palpitations, dyspnea, orthopnea, abdominal pain, nausea vomiting and diarrhea. She does asked to have her pain medication adjusted so that it is better timed related to her dressing changes. She also inquires about home health nursing fo r wound care following discharge. She has no other questions or concerns at this time. No concerns per nursing. Reason For Visit: SEPSIS,BUTTOCKS ABSCESS Physical Exam Vital Signs: Temp Pulse Resp BP Pulse Ox 97.6 F 92 18 106/60 100 09/04/19 15:13 09/04/19 15:13 09/04/19 15:13 09/04/19 15:13 09/04/19 15:13 Intake & Output 09/03/19 09/04/19 09/05/19 06:59 06:59 06:59 Intake Total 7792 1420 Output Total 90 Balance 7702 1420 Weight 188.6 kg 213.1 kg 213.1 kg General appearance: PRESENT: no acute distress, cooperative, morbidly obese, well-developed, well-nourished Head exam: PRESENT: atraumatic, normocephalic Eye exam: PRESENT: conjunctiva pink, EOMI, PERRLA. ABSENT: scleral icterus Ear exam: PRESENT: normal external ear exam Mouth exam: PRESENT: moist, tongue midline Respiratory exam: PRESENT: clear to auscultation marleny, decreased breath sounds - Diminished throughout; secondary to body habitus, symmetrical, unlabored. ABSENT: rales, rhonchi, wheezes Cardiovascular exam: PRESENT: RRR. ABSENT: diastolic murmur, rubs, systolic murmur Pulses: PRESENT: normal dorsalis pedis pul Vascular exam: PRESENT: normal capillary refill Extremities exam: PRESENT: full ROM. ABSENT: calf tenderness, clubbing, pedal edema Musculoskeletal exam: PRESENT: ambulatory Neurological exam: PRESENT: alert, awake, oriented to person, oriented to place, oriented to time, oriented to situation, CN II-XII grossly intact. ABSENT: motor sensory deficit Psychiatric exam: PRESENT: appropriate affect, normal mood. ABSENT: homicidal ideation, suicidal ideation Skin exam: PRESENT: dry, warm, other - Wound to right buttocks with surgical dressing in place. ABSENT: cyanosis, intact, rash Results Laboratory Results: 09/04/19 05:20 09/04/19 05:20 09/04/19 09/04/19 09/04/19 05:20 05:20 05:20 WBC 27.1 H RBC 3.90 Hgb 9.3 L D Hct 28.5 L MCV 73 L MCH 23.8 L MCHC 32.6 RDW 17.0 H Plt Count 299 Seg Neutrophils % Not Reportable Sodium 135.1 L Potassium 4.5 Chloride 106 Carbon Dioxide 24 Anion Gap 5 BUN 12 Creatinine 0.93 Est GFR ( Amer) > 60 Glucose 128 H Calcium 7.6 L Triglycerides 144 Cholesterol 86.40 LDL Cholesterol Direct 52 VLDL Cholesterol 29.0 HDL Cholesterol 12 L TSH 3.57 09/03/19 02:06 Blood Blood Culture (PCR) - Final Staphylococcus Species 09/03/19 14:00 Buttocks - Abscess Gram Stain - Final Impressions: Extremity Ultrasound 09/03/19 05:34 IMPRESSION: Moderate soft tissue edema/cellulitis of the right gluteal region. Limitation. Assessment and Plan - Diagnosis (1) Perirectal abscess Is this a current diagnosis for this admission?: Yes Plan: Now status post surgical I&D by Dr. Carlos. Wound culture shows gram-negative rods gram-positive cocci, and gram-positive rods Blood culture (1 of 4 bottles) shows gram-positive cocci in clusters. Surgery is consulted; wound care per their expertise. Patient is admitted to the medical floor. She has been empirically placed on IV vancomycin and Zosyn. Antiemetics and analgesics as needed. Discharge planning is consulted (2) Hypertension Is this a current diagnosis for this admission?: Yes Plan: Continue home dose Lisinopril. IV hydralazine as needed for blood pressure control. Appropriate pain control. Cardiac diet. (3) Depression Is this a current diagnosis for this admission?: Yes Plan: Continue home dose Lexapro. (4) Morbid obesity with BMI of 60.0-69.9, adult Is this a current diagnosis for this admission?: Yes Plan: BMI 69.2. The patient's super morbid obesity requires additional nursing support. Bariatric bed. She is at risk for further wound breakdown and/or respiratory complications. Lifestyle modification dietary discretion are strongly advised. TSH and lipid panel are acceptable other than low HDL. A1c 6.6% Registered dietitian is consulted. (5) Prediabetes Is this a current diagnosis for this admission?: Yes Plan: A1c 6.6%. Discussed with patient has previously been on metformin. We will plan on resuming at discharge. While admitted, will provide Accu-Cheks before meals and at bedtime with Humalog for sliding scale coverage. Registered dietitian is consulted. - Time Time Spent with patient: 25-34 minutes Medications reviewed and adjusted accordingly: Yes
[2019-09-04] MEDS: INSULIN LISPRO 100 UNIT/ML 3 ML VIAL SUBCUT SCH ×2 (17:16→21:38)
--- NOTE | 2019-09-05 00:20 | CDI QUERY ---
CDI Query CDI Review: Dear Provider: To better reflect your patients severity of illness, morbidity, and resource utilization Please specify and document in the Progress Notes and Discharge Summary if you are monitoring / treating / evaluating any of the following conditions: Query Clinical indicators Acute blood loss anemia Post-op blood loss anemia Dilutional anemia Unable to determine Other Perianal right buttock abscess with necrosis OPERATION: Wide excisional debridement of right buttock and eagle-anal abscess Blood loss: 200 cc H/H on admission 11.5/34.7 H/H Post-op 9.3/28.5 The terms probable, suspected, likely, possible or still to be ruled out may be used if you are unable to determine the exact nature of a condition. Thank you for your consideration, Clinical Documentation [facility] ADAM Masters RN, BSN RN Office [phone] Office [phone]
[2019-09-05 05:00] LABS: HEMATOCRIT 28.2 % (36.0-47.0); HEMOGLOBIN 9.1 g/dL (12.0-15.5); MEAN CORPUSCULAR HEMOGLOBIN 23.5 pg (27.0-33.4); MEAN CORPUSCULAR HGB CONC 32.4 g/dL (32.0-36.0); MEAN CORPUSCULAR VOLUME 73 fl (80-97); PLATELET COUNT 312 10^3/uL (150-450); RED BLOOD COUNT 3.88 10^6/uL (3.72-5.28); RED CELL DISTRIBUTION WIDTH 17.3 % (11.5-14.0); WHITE BLOOD COUNT 21.7 10^3/uL (4.0-10.5)
[2019-09-05] MEDS: NORMAL SALINE 1000 ML 1,000 ML IV PRN ×2 (05:21→09:15)
[2019-09-05] MEDS: PIPERACILLIN SODIUM/TAZOBACTAM 3.375 GM in NORMAL SALINE 100 ML IV SCH ×3 (05:22→18:55)
[2019-09-05] MEDS: HEPARIN SOD (PORCINE) 5,000 UNIT/ML 1 ML VIAL SUBCUT SCH ×3 (05:22→21:36)
[2019-09-05] MEDS: VANCOMYCIN HCL 1,250 MG in DEXTROSE 5%-WATER 250 ML IV SCH (05:54)
[2019-09-05] MEDS: INSULIN LISPRO 100 UNIT/ML 3 ML VIAL SUBCUT SCH ×4 (08:32→21:30)
[2019-09-05] MEDS: MORPHINE SULFATE 10 MG/ML INJ IV PRN ×2 (09:10→23:22)
[2019-09-05] MEDS: ESCITALOPRAM OXALATE 10 MG TABLET PO SCH (09:11)
[2019-09-05] MEDS: IBUPROFEN 800 MG TABLET PO SCH ×3 (09:11→18:54)
[2019-09-05] MEDS: LISINOPRIL 10 MG TABLET PO SCH (09:11)
[2019-09-05] MEDS: DOCUSATE SODIUM 100 MG CAPSULE PO SCH ×2 (09:12→18:55)
[2019-09-05] MEDS: FAMOTIDINE INJ/PF 20 MG/2 ML SDV IV SCH ×2 (09:12→21:35)
--- NOTE | 2019-09-05 09:16 | PDOC PROGRESS REPORT ---
Subjective Progress Note for:: 09/05/19 Subjective:: feels ok passing stool has control of stool and flatus Reason For Visit: SEPSIS,BUTTOCKS ABSCESS Physical Exam Vital Signs: Temp Pulse Resp BP Pulse Ox 97.4 F 96 19 140/89 H 98 09/04/19 23:16 09/04/19 23:16 09/04/19 23:16 09/04/19 23:16 09/04/19 23:16 Intake & Output 09/04/19 09/05/19 09/06/19 06:59 06:59 06:59 Intake Total 7792 3783 Output Total 90 Balance 7702 3783 Weight 213.1 kg 212.8 kg General appearance: PRESENT: no acute distress, morbidly obese Head exam: PRESENT: normocephalic Eye exam: PRESENT: EOMI Ear exam: PRESENT: normal external ear exam Mouth exam: PRESENT: moist Neck exam: PRESENT: full ROM Respiratory exam: PRESENT: clear to auscultation marleny Cardiovascular exam: PRESENT: RRR Pulses: PRESENT: normal radial pulses, normal femoral pulses Vascular exam: PRESENT: normal capillary refill Breast: PRESENT: Normal GI/Abdominal exam: PRESENT: soft Rectal exam: PRESENT: other - large right ischeal abscess, now debrided. wound digitalized clean, no necrotic tissue no loculated fluid collections Extremities exam: PRESENT: full ROM Musculoskeletal exam: PRESENT: full ROM Neurological exam: PRESENT: alert, awake, oriented to person, oriented to place, oriented to time Psychiatric exam: PRESENT: anxious Skin exam: PRESENT: dry Results Laboratory Results: 09/05/19 04:39 09/04/19 05:20 09/05/19 04:39 WBC 21.7 H RBC 3.88 Hgb 9.1 L Hct 28.2 L MCV 73 L MCH 23.5 L MCHC 32.4 RDW 17.3 H Plt Count 312 09/03/19 02:06 Blood Blood Culture (PCR) - Final Staphylococcus Species Impressions: Extremity Ultrasound 09/03/19 05:34 IMPRESSION: Moderate soft tissue edema/cellulitis of the right gluteal region. Limitation. Assessment & Plan - Plan Summary Plan Summary: s/p excisional debridement of large ischial abscess wound clean, being paciked will consider vac in 2-3 days.
--- NOTE | 2019-09-05 13:44 | PDOC PROGRESS REPORT ---
Subjective Progress Note for:: 09/05/19 Subjective:: FACUNDO MARTINEZ is a 34 year old female with a past medical history of hypertension, depression, and morbid obesity who was admitted 09/03/2019 with a perirectal abscess requiring surgical intervention. Patient was seen on morning rounds. She is found resting in bed, comfortably, on supplemental oxygen via NC. She reports buttocks pain following dressing change this morning. Otherwise, she denies all symptoms of fever, chills, chest pain, palpitations, dyspnea, orthopnea, abdominal pain, nausea vomiting and diarrhea. She has no other questions or concerns at this time. No concerns per nursing. Reason For Visit: SEPSIS,BUTTOCKS ABSCESS Physical Exam Vital Signs: Temp Pulse Resp BP Pulse Ox 98.9 F 96 20 147/78 H 100 09/05/19 08:00 09/05/19 08:00 09/05/19 08:00 09/05/19 08:00 09/05/19 08:00 Intake & Output 09/04/19 09/05/19 09/06/19 06:59 06:59 06:59 Intake Total 7792 3783 0 Output Total 90 Balance 7702 3783 0 Weight 213.1 kg 212.8 kg General appearance: PRESENT: no acute distress, cooperative, morbidly obese, well-developed, well-nourished Head exam: PRESENT: atraumatic, normocephalic Eye exam: PRESENT: conjunctiva pink, EOMI, PERRLA. ABSENT: scleral icterus Ear exam: PRESENT: normal external ear exam Mouth exam: PRESENT: moist, tongue midline Respiratory exam: PRESENT: decreased breath sounds - throughout r/t body habitus, unlabored Cardiovascular exam: PRESENT: RRR. ABSENT: diastolic murmur, rubs, systolic murmur Vascular exam: PRESENT: normal capillary refill Rectal exam: PRESENT: deferred Extremities exam: PRESENT: full ROM. ABSENT: calf tenderness, clubbing, pedal edema Neurological exam: PRESENT: alert, awake, oriented to person, oriented to place, oriented to time, oriented to situation, CN II-XII grossly intact. ABSENT: motor sensory deficit Psychiatric exam: PRESENT: appropriate affect, normal mood. ABSENT: homicidal ideation, suicidal ideation Skin exam: PRESENT: dry, warm, other - Wound to right buttocks with surgical dressing in place. ABSENT: cyanosis, intact, rash Results Laboratory Results: 09/05/19 04:39 09/04/19 05:20 09/05/19 04:39 WBC 21.7 H RBC 3.88 Hgb 9.1 L Hct 28.2 L MCV 73 L MCH 23.5 L MCHC 32.4 RDW 17.3 H Plt Count 312 09/03/19 02:06 Blood Blood Culture (PCR) - Final Staphylococcus Species Impressions: Extremity Ultrasound 09/03/19 05:34 IMPRESSION: Moderate soft tissue edema/cellulitis of the right gluteal region. Limitation. Assessment and Plan - Diagnosis (1) Perirectal abscess Is this a current diagnosis for this admission?: Yes Plan: Now status post surgical I&D by Dr. Carlos. Wound culture shows gram-negative rods gram-positive cocci, and gram-positive rods Blood culture (1 of 4 bottles) shows gram-positive cocci in clusters. WBCs trending down Surgery is consulted; wound care per their expertise. Patient is admitted to the medical floor. She has been empirically placed on IV vancomycin and Zosyn. Antiemetics and analgesics as needed. Discharge planning is consulted (2) Hypertension Is this a current diagnosis for this admission?: Yes Plan: Continue home dose Lisinopril. IV hydralazine as needed for blood pressure control. Appropriate pain control. Cardiac diet. (3) Depression Is this a current diagnosis for this admission?: Yes Plan: Continue home dose Lexapro. (4) Morbid obesity with BMI of 60.0-69.9, adult Is this a current diagnosis for this admission?: Yes Plan: BMI 69.2. The patient's super morbid obesity requires additional nursing support. Bariatric bed. She is at risk for further wound breakdown and/or respiratory complications. Lifestyle modification dietary discretion are strongly advised. TSH and lipid panel are acceptable other than low HDL. A1c 6.6% Registered dietitian is consulted. (5) Prediabetes Is this a current diagnosis for this admission?: Yes Plan: A1c 6.6%. Discussed with patient has previously been on metformin. We will plan on resuming at discharge. While admitted, will provide Accu-Cheks before meals and at bedtime with Humalog for sliding scale coverage. Registered dietitian is consulted. - Time Time Spent with patient: 25-34 minutes Medications reviewed and adjusted accordingly: Yes Anticipated discharge: Home with Homehealth
[2019-09-05] MEDS: VANCOMYCIN HCL 1,500 MG in DEXTROSE 5%-WATER 250 ML IV SCH ×2 (15:07→21:35)
[2019-09-05] MEDS: HYDROCODONE/ACETAMINOPHEN 10-325 MG TABLET PO PRN ×2 (15:14→20:44)
[2019-09-06] MEDS: PIPERACILLIN SODIUM/TAZOBACTAM 3.375 GM in NORMAL SALINE 100 ML IV SCH ×3 (00:06→13:10)
[2019-09-06] MEDS: NORMAL SALINE 1000 ML 1,000 ML IV PRN (02:50)
[2019-09-06] MEDS: HEPARIN SOD (PORCINE) 5,000 UNIT/ML 1 ML VIAL SUBCUT SCH ×3 (05:12→21:56)
[2019-09-06] MEDS: VANCOMYCIN HCL 1,500 MG in DEXTROSE 5%-WATER 250 ML IV SCH ×2 (06:06→15:07)
[2019-09-06 06:33] LABS: HEMOGLOBIN 9.5 g/dL (12.0-15.5); MEAN CORPUSCULAR HEMOGLOBIN 23.9 pg (27.0-33.4); MEAN CORPUSCULAR HGB CONC 32.6 g/dL (32.0-36.0); MEAN CORPUSCULAR VOLUME 73 fl (80-97); PLATELET COUNT 335 10^3/uL (150-450); RED BLOOD COUNT 3.96 10^6/uL (3.72-5.28); RED CELL DISTRIBUTION WIDTH 17.4 % (11.5-14.0)
[2019-09-06] MEDS: INSULIN LISPRO 100 UNIT/ML 3 ML VIAL SUBCUT SCH ×4 (08:02→21:56)
[2019-09-06] MEDS: HYDROCODONE/ACETAMINOPHEN 10-325 MG TABLET PO PRN ×3 (08:08→17:48)
[2019-09-06] MEDS: IBUPROFEN 800 MG TABLET PO SCH ×3 (08:08→16:18)
--- NOTE | 2019-09-06 08:34 | PDOC PROGRESS REPORT ---
Subjective Progress Note for:: 09/06/19 Subjective:: feels ok, no complaits Reason For Visit: SEPSIS,BUTTOCKS ABSCESS Physical Exam Vital Signs: Temp Pulse Resp BP Pulse Ox 98.1 F 102 H 18 140/80 H 96 09/06/19 07:20 09/06/19 07:20 09/06/19 07:20 09/06/19 07:20 09/06/19 08:23 Intake & Output 09/05/19 09/06/19 09/07/19 06:59 06:59 06:59 Intake Total 3783 2130 100 Balance 3783 2130 100 Weight 212.8 kg 213.2 kg General appearance: PRESENT: no acute distress, morbidly obese Head exam: PRESENT: atraumatic Eye exam: PRESENT: EOMI Mouth exam: PRESENT: moist Neck exam: PRESENT: full ROM Respiratory exam: PRESENT: clear to auscultation marleny Cardiovascular exam: PRESENT: RRR Pulses: PRESENT: normal femoral pulses, normal dorsalis pedis pul Breast: PRESENT: Normal - morbid obesity GI/Abdominal exam: PRESENT: soft Rectal exam: PRESENT: other - left ischial abscess cavity with early granulation tissue still some purulent exutate at depth of wound Extremities exam: PRESENT: full ROM Musculoskeletal exam: PRESENT: ambulatory Neurological exam: PRESENT: alert, awake, oriented to person, oriented to place Psychiatric exam: PRESENT: appropriate affect Skin exam: PRESENT: dry Results Laboratory Results: 09/06/19 05:30 09/04/19 05:20 09/06/19 05:30 WBC 14.0 H RBC 3.96 Hgb 9.5 L Hct 29.0 L MCV 73 L MCH 23.9 L MCHC 32.6 RDW 17.4 H Plt Count 335 09/03/19 02:06 Blood Blood Culture (PCR) - Final Staphylococcus Species Impressions: Extremity Ultrasound 09/03/19 05:34 IMPRESSION: Moderate soft tissue edema/cellulitis of the right gluteal region. Limitation. Assessment & Plan - Plan Summary Plan Summary: s/p debrident of ischial abscess perirectal this am noted some min increased purulent fluid at depth of cavity, dressing not placed in deep enough nursing reeducated about howdeep to place gauze\ will cont dressing changes today, if still present in am will consider redebridement.
[2019-09-06] MEDS ORDERED: DEXTROSE 50%-WATER 25 GM/50 ML DISP.SYRIN IV PRN ×2 (08:35)
[2019-09-06] MEDS ORDERED: GLUCAGON,HUMAN RECOMB 1 MG INJ SUBCUT PRN (08:35)
[2019-09-06] MEDS ORDERED: DEXTROSE 40% GEL 15 GM TUBE PO PRN ×2 (08:35)
[2019-09-06] MEDS: DOCUSATE SODIUM 100 MG CAPSULE PO SCH ×2 (10:46→21:44)
[2019-09-06] MEDS: FAMOTIDINE INJ/PF 20 MG/2 ML SDV IV SCH ×2 (10:47→21:57)
[2019-09-06] MEDS: LISINOPRIL 10 MG TABLET PO SCH (10:47)
[2019-09-06] MEDS: ESCITALOPRAM OXALATE 10 MG TABLET PO SCH (10:47)
[2019-09-06 14:30] LABS: VANCOMYCIN,TROUGH 16.5 ug/mL (5.0-20.0)
--- NOTE | 2019-09-06 14:45 | PDOC PROGRESS REPORT ---
Subjective Progress Note for:: 09/06/19 Subjective:: Follow-up of excision of abscess left buttock. Patient says she feels better Reason For Visit: SEPSIS,BUTTOCKS ABSCESS Physical Exam Vital Signs: Temp Pulse Resp BP Pulse Ox 98.3 F 95 17 133/73 H 96 09/06/19 11:40 09/06/19 11:40 09/06/19 11:40 09/06/19 11:40 09/06/19 11:40 Intake & Output 09/05/19 09/06/19 09/07/19 06:59 06:59 06:59 Intake Total 3783 2130 710 Balance 3783 2130 710 Weight 212.8 kg 213.2 kg General appearance: PRESENT: no acute distress, morbidly obese, well-developed, well-nourished Head exam: PRESENT: atraumatic, normocephalic Eye exam: PRESENT: conjunctiva pink, EOMI, PERRLA. ABSENT: scleral icterus Mouth exam: PRESENT: tongue midline Neck exam: ABSENT: carotid bruit, JVD, lymphadenopathy, thyromegaly Respiratory exam: PRESENT: clear to auscultation marleny. ABSENT: rales, rhonchi, wheezes Cardiovascular exam: PRESENT: RRR, +S1, +S2. ABSENT: diastolic murmur, rubs, systolic murmur Pulses: PRESENT: normal dorsalis pedis pul Vascular exam: PRESENT: normal capillary refill GI/Abdominal exam: PRESENT: normal bowel sounds, soft. ABSENT: distended, guar ding, mass, organolmegaly, rebound, tenderness Rectal exam: PRESENT: deferred Extremities exam: PRESENT: full ROM. ABSENT: calf tenderness, clubbing, pedal edema Musculoskeletal exam: PRESENT: other - Dressing over incision L buttock Neurological exam: PRESENT: alert, awake, oriented to person, oriented to place, oriented to time, oriented to situation, CN II-XII grossly intact. ABSENT: motor sensory deficit Psychiatric exam: PRESENT: appropriate affect, normal mood. ABSENT: homicidal ideation, suicidal ideation Skin exam: PRESENT: dry, intact, warm. ABSENT: cyanosis, rash Results Laboratory Results: 09/06/19 05:30 09/06/19 13:41 09/06/19 09/06/19 05:30 13:41 WBC 14.0 H RBC 3.96 Hgb 9.5 L Hct 29.0 L MCV 73 L MCH 23.9 L MCHC 32.6 RDW 17.4 H Plt Count 335 Creatinine 0.76 Est GFR ( Amer) > 60 09/03/19 02:06 Buttocks - Abscess Gram Stain - Final 09/03/19 14:00 Buttocks - Abscess Gram Stain - Final Impressions: Extremity Ultrasound 09/03/19 05:34 IMPRESSION: Moderate soft tissue edema/cellulitis of the right gluteal region. Limitation. Assessment and Plan - Diagnosis (1) Morbid obesity with BMI of 70 and over, adult Is this a current diagnosis for this admission?: Yes (2) Perirectal abscess Is this a current diagnosis for this admission?: Yes Plan: Now status post surgical I&D by Dr. Carlos. Wound culture shows gram-negative rods gram-positive cocci, and gram-positive rods Blood culture (1 of 4 bottles) shows gram-positive cocci in clusters. WBCs trending down Surgery is consulted; wound care per their expertise. Patient is admitted to the medical floor. She has been empirically placed on IV vancomycin and Zosyn. Antiemetics and analgesics as needed. Discharge planning is consulted 09/05 Will change abx to Ceftriaxone (3) Sepsis Qualifiers: Sepsis type: sepsis due to unspecified organism Is this a current diagnosis for this admission?: Yes Plan: Patient was septic on admission with a temperature of 101.7, tachycardia with a pulse rate of 133, leukocytosis with a white count of 29,000 and acute kidney injury. (4) Hypertension Is this a current diagnosis for this admission?: Yes (5) Prediabetes Is this a current diagnosis for this admission?: Yes - Plan Summary Summary: Wound culture is yielding multiple organisms including gram-positive cocci in chains, Clostridium non-perfringens, E. coli and she had a blood culture that grew Staphylococcus in clusters. Blood culture has been negative. There was just 1 blood culture out of 4+ possibly contaminant. Looking at a profile of antibiotic sensitivity including E. coli I think ceftriaxone is probably a good choice as this will also cover the multiple gram-positive organisms. I will change antibiotics to ceftriaxone. Her white count is down to 14,000
[2019-09-06] MEDS: CEFTRIAXONE 2 GM/D5W RTU 2 GM/50 ML RTUPB IV SCH (16:19)
[2019-09-06] MEDS: MORPHINE SULFATE 10 MG/ML INJ IV PRN (23:48)
[2019-09-07] MEDS: HEPARIN SOD (PORCINE) 5,000 UNIT/ML 1 ML VIAL SUBCUT SCH ×3 (05:21→21:44)
[2019-09-07 05:51] LABS: HEMATOCRIT 27.9 % (36.0-47.0); HEMOGLOBIN 9.2 g/dL (12.0-15.5); MEAN CORPUSCULAR HGB CONC 32.9 g/dL (32.0-36.0); MEAN CORPUSCULAR VOLUME 73 fl (80-97); PLATELET COUNT 387 10^3/uL (150-450); RED BLOOD COUNT 3.84 10^6/uL (3.72-5.28); WHITE BLOOD COUNT 16.9 10^3/uL (4.0-10.5)
[2019-09-07] MEDS: HYDROCODONE/ACETAMINOPHEN 10-325 MG TABLET PO PRN (06:31)
[2019-09-07] MEDS: INSULIN LISPRO 100 UNIT/ML 3 ML VIAL SUBCUT SCH ×4 (07:49→21:47)
[2019-09-07] MEDS: IBUPROFEN 800 MG TABLET PO SCH ×3 (07:53→17:33)
[2019-09-07] MEDS: MORPHINE SULFATE 10 MG/ML INJ IV PRN ×2 (08:22→21:50)
[2019-09-07] MEDS: FAMOTIDINE INJ/PF 20 MG/2 ML SDV IV SCH ×2 (09:19→21:50)
[2019-09-07] MEDS: DOCUSATE SODIUM 100 MG CAPSULE PO SCH ×3 (09:19→17:31)
[2019-09-07] MEDS: ESCITALOPRAM OXALATE 10 MG TABLET PO SCH (09:19)
[2019-09-07] MEDS: LISINOPRIL 10 MG TABLET PO SCH (09:20)
[2019-09-07] MEDS: CEFTRIAXONE 2 GM/D5W RTU 2 GM/50 ML RTUPB IV SCH (10:01)
--- NOTE | 2019-09-07 13:31 | PDOC PROGRESS REPORT ---
Subjective Progress Note for:: 09/07/19 Reason For Visit: SEPSIS,BUTTOCKS ABSCESS Physical Exam Vital Signs: Temp Pulse Resp BP Pulse Ox 97.6 F 95 16 141/87 H 93 09/07/19 12:00 09/07/19 12:00 09/07/19 12:00 09/07/19 12:00 09/07/19 12:00 Intake & Output 09/06/19 09/07/19 09/08/19 06:59 06:59 06:59 Intake Total 2130 2120 512 Balance 2130 2120 512 Weight 213.2 kg 213.2 kg 213.2 kg Results Laboratory Results: 09/07/19 05:19 09/06/19 13:41 09/06/19 09/07/19 13:41 05:19 WBC 16.9 H RBC 3.84 Hgb 9.2 L Hct 27.9 L MCV 73 L MCH 24.0 L MCHC 32.9 RDW 17.0 H Plt Count 387 Creatinine 0.76 Est GFR ( Amer) > 60 09/03/19 14:00 Buttocks - Abscess Gram Stain - Final 09/03/19 14:00 Buttocks - Abscess Wound Culture - Final Escherichia Coli Prevotella Species 09/03/19 02:06 Blood Blood Culture (PCR) - Final Staphylococcus Species 09/03/19 02:06 Blood Blood Culture - Final Staphylococcus Hominis 09/03/19 02:06 Buttocks - Abscess Gram Stain - Final 09/03/19 02:06 Buttocks - Abscess Wound Culture - Final Escherichia Coli Enterococcus Faecalis(Group D) Peptostreptococcus Species Prevotella Species Clostridium Sp.not Perfringens Impressions: Extremity Ultrasound 09/03/19 05:34 IMPRESSION: Moderate soft tissue edema/cellulitis of the right gluteal region. Limitation. Assessment & Plan - Diagnosis (1) Morbid obesity with BMI of 70 and over, adult Is this a current diagnosis for this admission?: Yes (2) Necrotizing soft tissue infection Is this a current diagnosis for this admission?: Yes - Plan Summary Plan Summary: This is a 34-year-old female with a necrotizing soft tissue infection of the buttock and perineum. The patient is status post wide debridement of all necrotic tissue. Overall, her wound looks good. There is a small amount of fibrinous slough at the very proximal base of the wound. There is no active purulence at present. Her leukocytosis is improving. Restart diet today. N.p.o. after midnight with reevaluation tomorrow. If there is worsening of the wound, she may require further debridement tomorrow. That decision will be made tomorrow morning. Continue antibiotics. Out of bed. Continue dressing changes.
--- NOTE | 2019-09-07 14:57 | PDOC PROGRESS REPORT ---
Subjective Progress Note for:: 09/07/19 Subjective:: Follow-up ofI and D of abscess left buttock. Patient says she feels better No new complaints Reason For Visit: SEPSIS,BUTTOCKS ABSCESS Physical Exam Vital Signs: Temp Pulse Resp BP Pulse Ox 97.6 F 95 16 141/87 H 93 09/07/19 12:00 09/07/19 12:00 09/07/19 12:00 09/07/19 12:00 09/07/19 12:00 Intake & Output 09/06/19 09/07/19 09/08/19 06:59 06:59 06:59 Intake Total 2130 2120 512 Balance 2130 2120 512 Weight 213.2 kg 213.2 kg 213.2 kg General appearance: PRESENT: no acute distress, morbidly obese Head exam: PRESENT: atraumatic, normocephalic Eye exam: PRESENT: conjunctiva pink, EOMI, PERRLA. ABSENT: scleral icterus Ear exam: PRESENT: normal external ear exam Mouth exam: PRESENT: moist, tongue midline Neck exam: ABSENT: carotid bruit, JVD, lymphadenopathy, thyromegaly Respiratory exam: PRESENT: clear to auscultation marleny, unlabored. ABSENT: rales, rhonchi, wheezes Cardiovascular exam: PRESENT: RRR, +S1, +S2. ABSENT: diastolic murmur, rubs, systolic murmur Pulses: PRESENT: normal dorsalis pedis pul Vascular exam: PRESENT: normal capillary refill GI/Abdominal exam: PRESENT: normal bowel sounds, soft. ABSENT: distended, guarding, mass, organolmegaly, rebound, tenderness Rectal exam: PRESENT: deferred, other - R Butt abscess Extremities exam: PRESENT: full ROM. ABSENT: calf tenderness, clubbing, pedal edema Musculoskeletal exam: PRESENT: ambulatory Neurological exam: PRESENT: alert, awake, oriented to person, oriented to place, oriented to time, oriented to situation, CN II-XII grossly intact. ABSENT: motor sensory deficit Psychiatric exam: PRESENT: appropriate affect, normal mood. ABSENT: homicidal ideation, suicidal ideation Skin exam: PRESENT: dry, intact, warm. ABSENT: cyanosis, rash Results Laboratory Results: 09/07/19 05:19 09/06/19 13:41 09/07/19 05:19 WBC 16.9 H RBC 3.84 Hgb 9.2 L Hct 27.9 L MCV 73 L MCH 24.0 L MCHC 32.9 RDW 17.0 H Plt Count 387 09/03/19 14:00 Buttocks - Abscess Gram Stain - Final 09/03/19 14:00 Buttocks - Abscess Wound Culture - Final Escherichia Coli Prevotella Species 09/03/19 02:06 Blood Blood Culture (PCR) - Final Staphylococcus Species 09/03/19 02:06 Blood Blood Culture - Final Staphylococcus Hominis 09/03/19 02:06 Buttocks - Abscess Gram Stain - Final 09/03/19 02:06 Buttocks - Abscess Wound Culture - Final Escherichia Coli Enterococcus Faecalis(Group D) Peptostreptococcus Species Prevotella Species Clostridium Sp.not Perfringens Impressions: Extremity Ultrasound 09/03/19 05:34 IMPRESSION: Moderate soft tissue edema/cellulitis of the right gluteal region. Limitation. Assessment and Plan - Diagnosis (1) Morbid obesity with BMI of 70 and over, adult Is this a current diagnosis for this admission?: Yes (2) Perirectal abscess Is this a current diagnosis for this admission?: Yes (3) Sepsis Qualifiers: Sepsis type: sepsis due to unspecified organism Is this a current diagnosis for this admission?: Yes (4) Hypertension Is this a current diagnosis for this admission?: Yes (5) Prediabetes Is this a current diagnosis for this admission?: Yes - Plan Summary Summary: Wound culture is yielding multiple organisms including gram-positive cocci in chains, Clostridium non-perfringens, E. coli and she had a blood culture that grew Staphylococcus in clusters. Blood culture has been negative. There was ju st 1 blood culture out of 4+ possibly contaminant. Looking at a profile of antibiotic sensitivity including E. coli I think ceftriaxone is probably a good choice as this will also cover the multiple gram-positive organisms. I will change antibiotics to ceftriaxone. Her white count is down to 14,000 09/06 count is slightly elevated however patient remains clinically stable. I did change to ceftriaxone yesterday. Cultures do seem to be susceptible to that. I will hold off on changing antibiotics and reevaluate tomorrow. There is also the possibility that she may go to the OR as per surgery - Time Time Spent with patient: 25-34 minutes Medications reviewed and adjusted accordingly: Yes
[2019-09-08] MEDS: HEPARIN SOD (PORCINE) 5,000 UNIT/ML 1 ML VIAL SUBCUT SCH ×3 (05:01→22:18)
[2019-09-08] MEDS: HYDROCODONE/ACETAMINOPHEN 10-325 MG TABLET PO PRN ×2 (05:33→14:20)
[2019-09-08 06:29] LABS: HEMATOCRIT 27.8 % (36.0-47.0); HEMOGLOBIN 9.1 g/dL (12.0-15.5); MEAN CORPUSCULAR HGB CONC 32.9 g/dL (32.0-36.0); MEAN CORPUSCULAR VOLUME 73 fl (80-97); PLATELET COUNT 415 10^3/uL (150-450); RED CELL DISTRIBUTION WIDTH 16.9 % (11.5-14.0); WHITE BLOOD COUNT 12.6 10^3/uL (4.0-10.5)
[2019-09-08 06:48] LABS: ANION GAP 5 (5-19); BLOOD UREA NITROGEN 8 mg/dL (7-20); CALCIUM 8.6 mg/dL (8.4-10.2); CARBON DIOXIDE 28 mmol/L (22-30); CHLORIDE 105 mmol/L (98-107); GLUCOSE 93 mg/dL (75-110); POTASSIUM 4.3 mmol/L (3.6-5.0)
[2019-09-08 07:16] LABS: ABSOLUTE LYMPHOCYTES# (MANUAL) 2.3 10^3/uL (0.5-4.7); ABSOLUTE MONOCYTES # (MANUAL) 0.4 10^3/uL (0.1-1.4); BASOPHILS % (MANUAL) 1 % (0-2); EOSINOPHILS % (MANUAL) 5 % (0-6); LYMPHOCYTES % (MANUAL) 18 % (13-45); MONOCYTES % (MANUAL) 3 % (3-13); NUCLEATED RED BLOOD CELLS 1 /100 WBC (0); SEGMENTED NEUTROPHILS % (MAN) 73 % (42-78); TOTAL CELLS COUNTED 100
[2019-09-08 07:18] LABS: ANISOCYTOSIS 1+
[2019-09-08 07:19] LABS: HYPOCHROMASIA SLIGHT
[2019-09-08 07:20] LABS: PLATELET COMMENT ADEQUATE
[2019-09-08] MEDS: INSULIN LISPRO 100 UNIT/ML 3 ML VIAL SUBCUT SCH ×4 (08:20→21:40)
[2019-09-08] MEDS: MORPHINE SULFATE 10 MG/ML INJ IV PRN (08:21)
[2019-09-08] MEDS: IBUPROFEN 800 MG TABLET PO SCH ×3 (08:21→17:21)
[2019-09-08] MEDS: DOCUSATE SODIUM 100 MG CAPSULE PO SCH ×2 (10:14→17:03)
[2019-09-08] MEDS: LISINOPRIL 10 MG TABLET PO SCH (10:14)
[2019-09-08] MEDS: ESCITALOPRAM OXALATE 10 MG TABLET PO SCH (10:14)
[2019-09-08] MEDS: FAMOTIDINE INJ/PF 20 MG/2 ML SDV IV SCH ×2 (10:14→22:18)
[2019-09-08] MEDS: CEFTRIAXONE 2 GM/D5W RTU 2 GM/50 ML RTUPB IV SCH (10:15)
--- NOTE | 2019-09-08 10:21 | PDOC PROGRESS REPORT ---
Subjective Progress Note for:: 09/08/19 Subjective:: Follow-up ofI and D of abscess left buttock. Patient says she feels better c/o L ear pain Reason For Visit: SEPSIS,BUTTOCKS ABSCESS Physical Exam Vital Signs: Temp Pulse Resp BP Pulse Ox 98.0 F 97 16 156/75 H 99 09/08/19 07:16 09/08/19 07:16 09/08/19 07:16 09/08/19 07:16 09/08/19 07:16 Intake & Output 09/07/19 09/08/19 09/09/19 06:59 06:59 06:59 Intake Total 2120 1114 Balance 2120 1114 Weight 213.2 kg 208.5 kg General appearance: PRESENT: no acute distress, morbidly obese, well-nourished Head exam: PRESENT: atraumatic, normocephalic Eye exam: PRESENT: conjunctiva pink, PERRLA. ABSENT: scleral icterus Ear exam: PRESENT: other - small skin tag L ear Mouth exam: PRESENT: moist, tongue midline Neck exam: ABSENT: carotid bruit, JVD, lymphadenopathy, thyromegaly Respiratory exam: PRESENT: clear to auscultation marleny. ABSENT: rales, rhonchi, wheezes Cardiovascular exam: PRESENT: RRR, +S1, +S2. ABSENT: diastolic murmur, rubs, systolic murmur Pulses: PRESENT: normal dorsalis pedis pul Vascular exam: PRESENT: normal capillary refill GI/Abdominal exam: PRESENT: normal bowel sounds, soft. ABSENT: distended, guarding, mass, organolmegaly, rebound, tenderness Rectal exam: PRESENT: deferred Extremities exam: PRESENT: full ROM. ABSENT: calf tenderness, clubbing, pedal edema Musculoskeletal exam: PRESENT: other - R buttock wound s/p I and D Neurological exam: PRESENT: alert, awake, oriented to person, oriented to place, oriented to time, oriented to situation, CN II-XII grossly intact. ABSENT: motor sensory deficit Psychiatric exam: PRESENT: appropriate affect, normal mood. ABSENT: homicidal ideation, suicidal ideation Skin exam: PRESENT: dry, intact, warm. ABSENT: cyanosis, rash Results Laboratory Results: 09/08/19 05:45 09/08/19 05:45 09/08/19 09/08/19 05:45 05:45 WBC 12.6 H RBC 3.80 Hgb 9.1 L Hct 27.8 L MCV 73 L MCH 24.0 L MCHC 32.9 RDW 16.9 H Plt Count 415 Seg Neutrophils % Not Reportable Sodium 138.3 Potassium 4.3 Chloride 105 Carbon Dioxide 28 Anion Gap 5 BUN 8 Creatinine 0.89 Est GFR ( Amer) > 60 Glucose 93 Calcium 8.6 09/03/19 02:34 Blood Blood Culture - Final NO GROWTH IN 5 DAYS 09/03/19 14:00 Buttocks - Abscess Gram Stain - Final 09/03/19 14:00 Buttocks - Abscess Wound Culture - Final Escherichia Coli Prevotella Species 09/03/19 02:06 Blood Blood Culture (PCR) - Final Staphylococcus Species 09/03/19 02:06 Blood Blood Culture - Final Staphylococcus Hominis 09/03/19 02:06 Buttocks - Abscess Gram Stain - Final 09/03/19 02:06 Buttocks - Abscess Wound Culture - Final Escherichia Coli Enterococcus Faecalis(Group D) Peptostreptococcus Species Prevotella Species Clostridium Sp.not Perfringens Impressions: Extremity Ultrasound 09/03/19 05:34 IMPRESSION: Moderate soft tissue edema/cellulitis of the right gluteal region. Limitation. Assessment and Plan - Diagnosis (1) Morbid obesity with BMI of 70 and over, adult Is this a current diagnosis for this admission?: Yes (2) Perirectal abscess Is this a current diagnosis for this admission?: Yes Plan: Now status post surgical I&D by Dr. Carlos. Wound culture shows gram-negative rods gram-positive cocci, and gram-positive rods Blood culture (1 of 4 bottles) shows gram-positive cocci in clusters. WBCs trending down Surgery is consulted; wound care per their expertise. Patient is admitted to the medical floor. She has been empirically placed on IV vancomycin and Zosyn. Antiemetics and analgesics as needed. Discharge planning is consulted 09/05 Will change abx to Ceftriaxone 09/07 awaiting evaluation by surgery for possible intervention again today pat ient remains n.p.o. (3) Sepsis Qualifiers: Sepsis type: sepsis due to unspecified organism Is this a current diagnosis for this admission?: Yes Plan: Patient was septic on admission with a temperature of 101.7, tachycardia with a pulse rate of 133, leukocytosis with a white count of 29,000 and acute kidney injury. 09/06 Resolved (4) Hypertension Is this a current diagnosis for this admission?: Yes Plan: Continue home dose Lisinopril. IV hydralazine as needed for blood pressure control. Appropriate pain control. Cardiac diet. (5) Prediabetes Is this a current diagnosis for this admission?: Yes Plan: A1c 6.6%. Discussed with patient has previously been on metformin. We will plan on resuming at discharge. While admitted, will provide Accu-Cheks before meals and at bedtime with Humalog for sliding scale coverage. Registered dietitian is consulted. - Plan Summary Summary: Wound culture is yielding multiple organisms including gram-positive cocci in chains, Clostridium non-perfringens, E. coli and she had a blood culture that grew Staphylococcus in clusters. Blood culture has been negative. There was just 1 blood culture out of 4+ possibly contaminant. Looking at a profile of antibiotic sensitivity including E. coli I think ceftriaxone is probably a good choice as this will also cover the multiple gram-positive organisms. I will change antibiotics to ceftriaxone. Her white count is down to 14,000 09/06 count is slightly elevated however patient remains clinically stable. I did change to ceftriaxone yesterday. Cultures do seem to be susceptible to that. I will hold off on changing antibiotics and reevaluate tomorrow. There is also the possibility that she may go to the OR as per surgery 09/07 WBC improved, continue same abx - Time Time Spent with patient: 25-34 minutes
--- NOTE | 2019-09-08 12:22 | PDOC PROGRESS REPORT ---
Subjective Progress Note for:: 09/08/19 Reason For Visit: SEPSIS,BUTTOCKS ABSCESS Physical Exam Vital Signs: Temp Pulse Resp BP Pulse Ox 98.0 F 97 16 156/75 H 99 09/08/19 07:16 09/08/19 07:16 09/08/19 07:16 09/08/19 07:16 09/08/19 07:16 Intake & Output 09/07/19 09/08/19 09/09/19 06:59 06:59 06:59 Intake Total 2120 1114 Balance 2120 1114 Weight 213.2 kg 208.5 kg Results Laboratory Results: 09/08/19 05:45 09/08/19 05:45 09/08/19 09/08/19 05:45 05:45 WBC 12.6 H RBC 3.80 Hgb 9.1 L Hct 27.8 L MCV 73 L MCH 24.0 L MCHC 32.9 RDW 16.9 H Plt Count 415 Seg Neutrophils % Not Reportable Sodium 138.3 Potassium 4.3 Chloride 105 Carbon Dioxide 28 Anion Gap 5 BUN 8 Creatinine 0.89 Est GFR ( Amer) > 60 Glucose 93 Calcium 8.6 09/03/19 02:34 Blood Blood Culture - Final NO GROWTH IN 5 DAYS 09/03/19 14:00 Buttocks - Abscess Gram Stain - Final 09/03/19 14:00 Buttocks - Abscess Wound Culture - Final Escherichia Coli Prevotella Species 09/03/19 02:06 Blood Blood Culture (PCR) - Final Staphylococcus Species 09/03/19 02:06 Blood Blood Culture - Final Staphylococcus Hominis 09/03/19 02:06 Buttocks - Abscess Gram Stain - Final 09/03/19 02:06 Buttocks - Abscess Wound Culture - Final Escherichia Coli Enterococcus Faecalis(Group D) Peptostreptococcus Species Prevotella Species Clostridium Sp.not Perfringens Impressions: Extremity Ultrasound 09/03/19 05:34 IMPRESSION: Moderate soft tissue edema/cellulitis of the right gluteal region. Limitation. Assessment & Plan - Diagnosis (1) Morbid obesity with BMI of 70 and over, adult Is this a current diagnosis for this admission?: Yes (2) Necrotizing soft tissue infection Is this a current diagnosis for this admission?: Yes - Plan Summary Plan Summary: This is a 34-year-old female with a necrotizing soft tissue infection of the buttock and perineum. The patient is status post wide debridement of all necrotic tissue. Her wound continues to improve. There is less fibrinous slough in the wound today. There is no active purulence at present. Her leukocytosis is improving. Continue diet. Continue antibiotics. Out of bed. Continue dressing changes. Discharge planning.
[2019-09-09] MEDS: MORPHINE SULFATE 10 MG/ML INJ IV PRN ×3 (00:14→22:33)
[2019-09-09] MEDS: HYDRALAZINE HCL INJ/PF 20 MG/1 ML SDV IV PRN ×2 (00:36→11:04)
[2019-09-09] MEDS: HEPARIN SOD (PORCINE) 5,000 UNIT/ML 1 ML VIAL SUBCUT SCH ×3 (06:08→22:39)
[2019-09-09] MEDS: INSULIN LISPRO 100 UNIT/ML 3 ML VIAL SUBCUT SCH ×4 (07:28→22:30)
--- NOTE | 2019-09-09 09:15 | PDOC PROGRESS REPORT ---
Subjective Progress Note for:: 09/09/19 Subjective:: feels better Reason For Visit: SEPSIS,BUTTOCKS ABSCESS Physical Exam Vital Signs: Temp Pulse Resp BP Pulse Ox 98.2 F 104 H 18 175/111 H 99 09/09/19 08:00 09/09/19 08:00 09/09/19 08:00 09/09/19 08:00 09/09/19 08:00 Intake & Output 09/08/19 09/09/19 09/10/19 06:59 06:59 06:59 Intake Total 1114 1665 Balance 1114 1665 Weight 208.5 kg 208.5 kg General appearance: PRESENT: no acute distress, morbidly obese, obese Head exam: PRESENT: normocephalic Eye exam: PRESENT: EOMI Ear exam: PRESENT: normal external ear exam Mouth exam: PRESENT: moist Neck exam: PRESENT: full ROM Respiratory exam: PRESENT: clear to auscultation marleny Cardiovascular exam: PRESENT: RRR Pulses: PRESENT: normal radial pulses, normal femoral pulses Vascular exam: PRESENT: normal capillary refill Breast: PRESENT: Normal Rectal exam: PRESENT: other - right ischial wound looks better granulation tissue no sig necrosis no undrained loculations Extremities exam: PRESENT: full ROM Musculoskeletal exam: PRESENT: ambulatory Neurological exam: PRESENT: alert, awake, oriented to place Psychiatric exam: PRESENT: appropriate affect Skin exam: PRESENT: dry Results Laboratory Results: 09/08/19 05:45 09/08/19 05:45 Impressions: Extremity Ultrasound 09/03/19 05:34 IMPRESSION: Moderate soft tissue edema/cellulitis of the right gluteal region. Limitation. Assessment & Plan - Plan Summary Plan Summary: s/p wide debridement of ischial abscess wound doing better prob not appropriated for vac would cont dressing changes wet to dry ok from surgery [facility].
[2019-09-09] MEDS: IBUPROFEN 800 MG TABLET PO SCH ×3 (09:51→17:27)
[2019-09-09] MEDS: CEFTRIAXONE 2 GM/D5W RTU 2 GM/50 ML RTUPB IV SCH (09:51)
[2019-09-09] MEDS: LISINOPRIL 10 MG TABLET PO SCH (09:52)
[2019-09-09] MEDS: FAMOTIDINE INJ/PF 20 MG/2 ML SDV IV SCH (09:52)
[2019-09-09] MEDS: DOCUSATE SODIUM 100 MG CAPSULE PO SCH ×2 (09:52→17:26)
[2019-09-09] MEDS: ESCITALOPRAM OXALATE 10 MG TABLET PO SCH (09:52)
[2019-09-09] MEDS: HYDROCODONE/ACETAMINOPHEN 10-325 MG TABLET PO PRN ×2 (09:52→20:18)
--- NOTE | 2019-09-09 15:09 | PDOC PROGRESS REPORT ---
Subjective Progress Note for:: 09/09/19 Subjective:: Follow-up ofI and D of abscess left buttock. Patient says she feels better she has no new complaints today Reason For Visit: SEPSIS,BUTTOCKS ABSCESS Physical Exam Vital Signs: Temp Pulse Resp BP Pulse Ox 97.9 F 94 18 156/111 H 98 09/09/19 10:41 09/09/19 10:41 09/09/19 10:41 09/09/19 10:41 09/09/19 10:41 Intake & Output 09/08/19 09/09/19 09/10/19 06:59 06:59 06:59 Intake Total 1114 1665 740 Balance 1114 1665 740 Weight 208.5 kg 208.5 kg General appearance: PRESENT: no acute distress, morbidly obese, well-developed Head exam: PRESENT: atraumatic, normocephalic Eye exam: PRESENT: conjunctiva pink, EOMI, PERRLA. ABSENT: scleral icterus Ear exam: PRESENT: normal external ear exam Mouth exam: PRESENT: moist, tongue midline Neck exam: ABSENT: carotid bruit, JVD, lymphadenopathy, thyromegaly Respiratory exam: PRESENT: clear to auscultation marleny. ABSENT: rales, rhonchi, wheezes Cardiovascular exam: PRESENT: RRR, +S1, +S2. ABSENT: diastolic murmur, rubs, systolic murmur Pulses: PRESENT: normal dorsalis pedis pul Vascular exam: PRESENT: normal capillary refill GI/Abdominal exam: PRESENT: normal bowel sounds, soft. ABSENT: distended, guarding, mass, organolmegaly, rebound, tenderness Rectal exam: PRESENT: deferred Extremities exam: PRESENT: full ROM. ABSENT: calf tenderness, clubbing, pedal edema Musculoskeletal exam: PRESENT: other - Dressing over R ischium Neurological exam: PRESENT: alert, awake, oriented to person, oriented to place, oriented to time, oriented to situation, CN II-XII grossly intact. ABSENT: motor sensory deficit Psychiatric exam: PRESENT: appropriate affect, normal mood. ABSENT: homicidal ideation, suicidal ideation Skin exam: PRESENT: dry, intact, warm. ABSENT: cyanosis, rash Results Laboratory Results: 09/08/19 05:45 09/08/19 05:45 Impressions: Extremity Ultrasound 09/03/19 05:34 IMPRESSION: Moderate soft tissue edema/cellulitis of the right gluteal region. Limitation. Assessment and Plan - Diagnosis (1) Morbid obesity with BMI of 70 and over, adult Is this a current diagnosis for this admission?: Yes (2) Perirectal abscess Is this a current diagnosis for this admission?: Yes (3) Sepsis Qualifiers: Sepsis type: sepsis due to unspecified organism Is this a current diagnosis for this admission?: Yes (4) Hypertension Is this a current diagnosis for this admission?: Yes (5) Prediabetes Is this a current diagnosis for this admission?: Yes - Plan Summary Summary: Wound culture is yielding multiple organisms including gram-positive cocci in chains, Clostridium non-perfringens, E. coli and she had a blood culture that grew Staphylococcus in clusters. Blood culture has been negative. There was just 1 blood culture out of 4+ possibly contaminant. Looking at a profile of antibiotic sensitivity including E. coli I think ceftriaxone is probably a good choice as this will also cover the multiple gram-positive organisms. I will change antibiotics to ceftriaxone. Her white count is down to 14,000 09/06 count is slightly elevated however patient remains clinically stable. I did change to ceftriaxone yesterday. Cultures do seem to be susceptible to that. I will hold off on changing antibiotics and reevaluate tomorrow. There is also the possibility that she may go to the OR as per surgery 09/07 WBC improved, continue same abx tatus post wide debridement of ischial abscess. Wound apparently doing better and no need for wound VAC or for the OR intervention at this time. Patient will need to go to rehab as she will need wound care which she cannot provide a currently provided by family. She is still on IV antibiotics although she has improved with a white count coming down from 29.2-12.6. Wound culture is yielding multiple organisms. Patient is currently on ceftriaxone but I believe this can be changed to oral antibiotics in a few days and probably discharge to rehab early next week s - Time Anticipated discharge: SNF Within: within 72 hours - Inpatient Certification Based on my medical assessment, after consideration of the patient's comorbidities, presenting symptoms, or acuity I expect that the services needed warrant INPATIENT care.: Yes Medical Necessity: Need for IV Antibiotics
[2019-09-09] MEDS: FAMOTIDINE 20 MG TABLET PO SCH (22:33)
[2019-09-10] MEDS: HYDRALAZINE HCL INJ/PF 20 MG/1 ML SDV IV PRN (03:50)
[2019-09-10] MEDS: HEPARIN SOD (PORCINE) 5,000 UNIT/ML 1 ML VIAL SUBCUT SCH ×3 (05:27→21:32)
[2019-09-10] MEDS: MORPHINE SULFATE 10 MG/ML INJ IV PRN ×3 (06:43→23:24)
[2019-09-10 06:49] LABS: BLOOD UREA NITROGEN 11 mg/dL (7-20); CALCIUM 8.6 mg/dL (8.4-10.2); CHLORIDE 105 mmol/L (98-107); GLUCOSE 104 mg/dL (75-110); POTASSIUM 4.4 mmol/L (3.6-5.0)
[2019-09-10 06:54] LABS: ANION GAP 5 (5-19); CARBON DIOXIDE 27 mmol/L (22-30)
[2019-09-10 06:58] LABS: ABSOLUTE BASOPHILS # (AUTO) 0.1 10^3/uL (0.0-0.2); ABSOLUTE EOSINOPHILS # (AUTO) 0.7 10^3/uL (0.0-0.6); ABSOLUTE LYMPHOCYTES (AUTO) 2.1 10^3/uL (0.5-4.7); ABSOLUTE MONOCYTES (AUTO) 0.5 10^3/uL (0.1-1.4); ABSOLUTE NEUT (AUTO) 5.8 10^3/uL (1.7-8.2); BASOPHILS % (AUTO) 0.8 % (0-2); EOSINOPHILS % (AUTO) 7.2 % (0-6); HEMATOCRIT 27.6 % (36.0-47.0); HEMOGLOBIN 9.2 g/dL (12.0-15.5); LYMPHOCYTES % (AUTO) 23.2 % (13-45); MEAN CORPUSCULAR HEMOGLOBIN 24.3 pg (27.0-33.4); MEAN CORPUSCULAR HGB CONC 33.4 g/dL (32.0-36.0); MEAN CORPUSCULAR VOLUME 73 fl (80-97); PLATELET COUNT 485 10^3/uL (150-450); SEGMENTED NEUTROPHILS % (AUTO) 63.8 % (42-78); TOTAL CELLS COUNTED % (AUTO) 100 %; WHITE BLOOD COUNT 9.1 10^3/uL (4.0-10.5)
[2019-09-10] MEDS: INSULIN LISPRO 100 UNIT/ML 3 ML VIAL SUBCUT SCH ×4 (07:50→21:27)
[2019-09-10] MEDS: IBUPROFEN 800 MG TABLET PO SCH ×3 (08:22→17:23)
[2019-09-10] MEDS: HYDROCODONE/ACETAMINOPHEN 10-325 MG TABLET PO PRN ×2 (08:23→13:11)
[2019-09-10] MEDS: ESCITALOPRAM OXALATE 10 MG TABLET PO SCH (09:36)
[2019-09-10] MEDS: DOCUSATE SODIUM 100 MG CAPSULE PO SCH ×2 (09:36→17:23)
[2019-09-10] MEDS: FAMOTIDINE 20 MG TABLET PO SCH ×2 (09:36→21:33)
[2019-09-10] MEDS: CEFTRIAXONE 2 GM/D5W RTU 2 GM/50 ML RTUPB IV SCH (09:36)
[2019-09-10] MEDS: LISINOPRIL 10 MG TABLET PO SCH (09:36)
--- NOTE | 2019-09-10 13:36 | PDOC PROGRESS REPORT ---
Subjective Progress Note for:: 09/10/19 Reason For Visit: SEPSIS,BUTTOCKS ABSCESS Physical Exam Vital Signs: Temp Pulse Resp BP Pulse Ox 97.9 F 100 18 153/83 H 99 09/10/19 10:40 09/10/19 10:40 09/10/19 10:40 09/10/19 10:40 09/10/19 10:40 Intake & Output 09/09/19 09/10/19 09/11/19 06:59 06:59 06:59 Intake Total 1665 2325 Balance 1665 2325 Weight 208.5 kg 280.5 kg General appearance: PRESENT: no acute distress, obese, well-developed, well- nourished Head exam: PRESENT: atraumatic, normocephalic Eye exam: PRESENT: conjunctiva pink Mouth exam: PRESENT: moist Respiratory exam: PRESENT: clear to auscultation marleny. ABSENT: rales, rhonchi, wheezes GI/Abdominal exam: PRESENT: normal bowel sounds, soft. ABSENT: distended, guarding, mass, organolmegaly, rebound, tenderness Extremities exam: PRESENT: pedal edema Neurological exam: PRESENT: alert, awake, oriented to person, oriented to place, oriented to time, oriented to situation Skin exam: PRESENT: dry, warm, other - Multiple extensive surgical wounds along right leg, healing Results Laboratory Results: 09/10/19 05:49 09/10/19 05:49 09/10/19 09/10/19 05:49 05:49 WBC 9.1 RBC 3.80 Hgb 9.2 L Hct 27.6 L MCV 73 L MCH 24.3 L MCHC 33.4 RDW 17.0 H Plt Count 485 H Seg Neutrophils % 63.8 Sodium 137.0 Potassium 4.4 Chloride 105 Carbon Dioxide 27 Anion Gap 5 BUN 11 Creatinine 0.89 Est GFR ( Amer) > 60 Glucose 104 Calcium 8.6 09/05/19 04:49 Blood Blood Culture - Final NO GROWTH IN 5 DAYS 09/05/19 04:39 Blood Blood Culture - Final NO GROWTH IN 5 DAYS Impressions: Extremity Ultrasound 09/03/19 05:34 IMPRESSION: Moderate soft tissue edema/cellulitis of the right gluteal region. Limitation. Assessment and Plan - Diagnosis (1) Perirectal abscess Is this a current diagnosis for this admission?: Yes Plan: Now status post surgical I&D by Dr. Carlos. Wound culture shows gram-negative rods gram-positive cocci, and gram-positive rods Blood culture (1 of 4 bottles) shows gram-positive cocci in clusters. WBCs trending down Surgery is consulted; wound care per their expertise. Patient is admitted to the medical floor. She has been empirically placed on IV vancomycin and Zosyn. Antiemetics and analgesics as needed. Discharge planning is consulted 09/05 Will change abx to Ceftriaxone 09/07 awaiting evaluation by surgery for possible intervention again today ben nando remains n.p.o. 09/10/2019 Her extensive wounds will require a great deal of care after discharge. She will be unable to care for her own wounds to her severe obesity and the extensive nature of her wounds. She will need to go to nursing facility but we have yet to find one that accepts her. Continued on ceftriaxone (2) Hypertension Is this a current diagnosis for this admission?: Yes Plan: Continue home dose Lisinopril. IV hydralazine as needed for blood pressure control. Appropriate pain control. Cardiac diet. 09/10/2019 BP uncontrolled IV hydralazine stopped, we can control her blood pressure with orals rather t solomon IV PRN medications that can cause abrupt unpredictable drops Increase lisinopril dose Start chlorthalidone (3) Morbid obesity with BMI of 70 and over, adult Is this a current diagnosis for this admission?: Yes Plan: Counseled extensively on weight loss Recommended vegan diet which she is interested in starting (4) Necrotizing soft tissue infection Is this a current diagnosis for this admission?: Yes (5) Prediabetes Is this a current diagnosis for this admission?: Yes (6) Sepsis Qualifiers: Sepsis type: sepsis due to unspecified organism Sepsis acute organ dysfunction status: unspecified Qualified Code(s): A41.9 - Sepsis, unspecified organism Is this a current diagnosis for this admission?: Yes Plan: Patient was septic on admission with a temperature of 101.7, tachycardia with a pulse rate of 133, leukocytosis with a white count of 29,000 and acute kidney injury. 09/06 Resolved (7) Depression Is this a current diagnosis for this admission?: Yes - Plan Summary Summary: Wound culture is yielding multiple organisms including gram-positive cocci in chains, Clostridium non-perfringens, E. coli and she had a blood culture that grew Staphylococcus in clusters. Blood culture has been negative. There was just 1 blood culture out of 4+ possibly contaminant. Looking at a profile of antibiotic sensitivity including E. coli I think ceftriaxone is probably a good choice as this will also cover the multiple gram-positive organisms. I will change antibiotics to ceftriaxone. Her white count is down to 14,000 09/06 count is slightly elevated however patient remains clinically stable. I did change to ceftriaxone yesterday. Cultures do seem to be susceptible to that. I will hold off on changing antibiotics and reevaluate tomorrow. There is also the possibility that she may go to the OR as per surgery 09/07 WBC improved, continue same abx tatus post wide debridement of ischial abscess. Wound apparently doing better and no need for wound VAC or for the OR intervention at this time. Patient will need to go to rehab as she will need wound care which she cannot provide a currently provided by family. She is still on IV antibiotics although she has improved with a white count coming down from 29.2-12.6. Wound culture is yielding multiple organisms. Patient is currently on ceftriaxone but I believe this can be changed to oral antibiotics in a few days and probably d ischarge to rehab early next week s - Time Time Spent with patient: 15-24 minutes Medications reviewed and adjusted accordingly: Yes Anticipated discharge: SNF Within: within 48 hours - Inpatient Certification Based on my medical assessment, after consideration of the patient's comorbidities, presenting symptoms, or acuity I expect that the services needed warrant INPATIENT care.: Yes I certify that my determination is in accordance with my understanding of Medicare's requirements for reasonable and necessary INPATIENT services [42 CFR 412.3e].: Yes Medical Necessity: Significant Comorbidiites Make Outpatient Treatment Too Risky, Need Close Monitoring Due to Risk of Patient Decompensation, Need for IV Antibiotics, Risk of Complication if Not Cared For in Hospital, Risk of Diagnosis Which Will Require Inpatient Eval/Care/Monitoring
[2019-09-10] MEDS ORDERED: CHLORTHALIDONE 25 MG TABLET PO SCH (14:30)
[2019-09-10] MEDS ORDERED: HYDRALAZINE HCL INJ/PF 20 MG/1 ML SDV IV PRN (22:58)
[2019-09-11] MEDS: MORPHINE SULFATE 10 MG/ML INJ IV PRN ×3 (04:27→18:44)
[2019-09-11] MEDS: HEPARIN SOD (PORCINE) 5,000 UNIT/ML 1 ML VIAL SUBCUT SCH ×3 (05:05→21:15)
[2019-09-11] MEDS: INSULIN LISPRO 100 UNIT/ML 3 ML VIAL SUBCUT SCH ×4 (07:35→21:42)
[2019-09-11] MEDS: IBUPROFEN 800 MG TABLET PO SCH ×3 (07:46→17:35)
--- NOTE | 2019-09-11 08:47 | PDOC PROGRESS REPORT ---
Subjective Reason For Visit: SEPSIS,BUTTOCKS ABSCESS Physical Exam Vital Signs: Temp Pulse Resp BP Pulse Ox 98.0 F 92 22 H 152/93 H 100 09/11/19 08:00 09/11/19 08:00 09/11/19 08:00 09/11/19 08:00 09/11/19 08:00 Intake & Output 09/10/19 09/11/19 09/12/19 06:59 06:59 06:59 Intake Total 2325 1840 Balance 2325 1840 Weight 280.5 kg 208.5 kg Results Laboratory Results: 09/10/19 05:49 09/10/19 05:49 09/05/19 04:49 Blood Blood Culture - Final NO GROWTH IN 5 DAYS 09/05/19 04:39 Blood Blood Culture - Final NO GROWTH IN 5 DAYS Impressions: Extremity Ultrasound 09/03/19 05:34 IMPRESSION: Moderate soft tissue edema/cellulitis of the right gluteal region. Limitation. Assessment & Plan - Diagnosis (1) Morbid obesity with BMI of 70 and over, adult Is this a current diagnosis for this admission?: Yes (2) Necrotizing soft tissue infection Is this a current diagnosis for this admission?: Yes - Plan Summary Plan Summary: This is a 34-year-old female with a severe necrotizing soft tissue infection of the buttock. Her wound appears clean today. She is afebrile. Plan is for jail facility placement to assist with dressing changes. Continue with damp to dry dressing changes with packing twice daily. No further surgical intervention is necessary at this time. The patient should follow-up with [facility] in the next 2 to 3 weeks for a wound check. Surgery will sign off at this time. Please renotify with any questions or concerns.
[2019-09-11] MEDS: METOPROLOL TARTRATE 25 MG TABLET PO SCH ×2 (11:37→21:15)
[2019-09-11] MEDS: CHLORTHALIDONE 25 MG TABLET PO SCH (11:38)
[2019-09-11] MEDS: ESCITALOPRAM OXALATE 10 MG TABLET PO SCH (11:45)
[2019-09-11] MEDS: FAMOTIDINE 20 MG TABLET PO SCH ×2 (11:45→21:15)
[2019-09-11] MEDS: LISINOPRIL 10 MG TABLET PO SCH (11:45)
[2019-09-11] MEDS: CEFTRIAXONE 2 GM/D5W RTU 2 GM/50 ML RTUPB IV SCH (11:46)
[2019-09-11] MEDS: DOCUSATE SODIUM 100 MG CAPSULE PO SCH ×2 (12:06→17:51)
[2019-09-11] MEDS: OXYCODONE-ACETAMINOPHEN 5-325 MG TABLET PO PRN ×2 (12:10→21:44)
--- NOTE | 2019-09-11 12:20 | PDOC PROGRESS REPORT ---
Subjective Progress Note for:: 09/11/19 Subjective:: 09/11/2019 Patient overall doing quite well today. She is having a great deal of pain during her dressing changes but otherwise her pain is well controlled. We will start transitioning her to oral pain medications rather than IV and I recommended that these be given her approximately 30 minutes prior to her dressing change. She is interested in starting a vegan diet and we spent a great deal of time talking about this yesterday. She has no new complaints. Surgery has signed off. We are waiting for her to be accepted at a nursing facility for wound care. Reason For Visit: SEPSIS,BUTTOCKS ABSCESS Physical Exam Vital Signs: Temp Pulse Resp BP Pulse Ox 97.3 F 94 16 149/72 H 99 09/11/19 12:00 09/11/19 12:00 09/11/19 12:00 09/11/19 12:00 09/11/19 12:00 Intake & Output 09/10/19 09/11/19 09/12/19 06:59 06:59 06:59 Intake Total 2325 1840 Balance 2325 1840 Weight 280.5 kg 208.5 kg General appearance: PRESENT: no acute distress, morbidly obese, well-developed, well-nourished Head exam: PRESENT: atraumatic, normocephalic Eye exam: PRESENT: conjunctiva pink Mouth exam: PRESENT: moist Respiratory exam: PRESENT: clear to auscultation marleny. ABSENT: rales, rhonchi, wheezes Cardiovascular exam: PRESENT: RRR. ABSENT: diastolic murmur, rubs, systolic murmur GI/Abdominal exam: PRESENT: normal bowel sounds, soft. ABSENT: distended, guarding, mass, organolmegaly, rebound, tenderness Neurological exam: PRESENT: alert, awake, oriented to person, oriented to place, oriented to time, oriented to situation Psychiatric exam: PRESENT: appropriate affect, normal mood Skin exam: PRESENT: dry, warm, other - Extensive surgical wounds clean and healing Results Laboratory Results: 09/10/19 05:49 09/10/19 05:49 Impressions: Extremity Ultrasound 09/03/19 05:34 IMPRESSION: Moderate soft tissue edema/cellulitis of the right gluteal region. Limitation. Assessment and Plan - Diagnosis (1) Perirectal abscess Is this a current diagnosis for this admission?: Yes Plan: Now status post surgical I&D by Dr. Carlos. Wound culture shows gram-negative rods gram-positive cocci, and gram-positive rods Blood culture (1 of 4 bottles) shows gram-positive cocci in clusters. WBCs trending down Surgery is consulted; wound care per their expertise. Patient is admitted to the medical floor. She has been empirically placed on IV vancomycin and Zosyn. Antiemetics and analgesics as needed. Discharge planning is consulted 09/05 Will change abx to Ceftriaxone 09/07 awaiting evaluation by surgery for possible intervention again today patient remains n.p.o. 09/10/2019 Her extensive wounds will require a great deal of care after discharge. She will be unable to care for her own wounds to her severe obesity and the extensive nature of her wounds. She will need to go to nursing facility but we have yet to find one that accepts her. Continued on ceftriaxone 09/11/2019 Pain seems to be only uncontrolled during dressing changes. Transition oral narcotics and off of IV options. Surgery has signed off Needs to go to SNF for wound care, not accepted yet (2) Hypertension Is this a current diagnosis for this admission?: Yes Plan: Continue home dose Lisinopril. IV hydralazine as needed for blood pressure control. Appropriate pain control. Cardiac diet. 09/10/2019 BP uncontrolled IV hydralazine stopped, we can control her blood pressure with orals rather than IV PRN medications that can cause abrupt unpredictable drops Increase lisinopril dose Start chlorthalidone 09/11/2019 Uncontrolled, increased meds, added lisinopril (3) Morbid obesity with BMI of 70 and over, adult Is this a current diagnosis for this admission?: Yes (4) Necrotizing soft tissue infection Is this a current diagnosis for this admission?: Yes (5) Prediabetes Is this a current diagnosis for this admission?: Yes (6) Sepsis Qualifiers: Sepsis type: sepsis due to unspecified organism Sepsis acute organ dysfunction status: unspecified Qualified Code(s): A41.9 - Sepsis, unspecified organism Is this a current diagnosis for this admission?: Yes (7) Depression Is this a current diagnosis for this admission?: Yes - Plan Summary Summary: Wound culture is yielding multiple organisms including gram-positive cocci in chains, Clostridium non-perfringens, E. coli and she had a blood culture that grew Staphylococcus in clusters. Blood culture has been negative. There was just 1 blood culture out of 4+ possibly contaminant. Looking at a profile of antibiotic sensitivity including E. coli I think ceftriaxone is probably a good choice as this will also cover the multiple gram-positive organisms. I will change antibiotics to ceftriaxone. Her white count is down to 14,000 09/06 count is slightly elevated however patient remains clinically stable. I did change to ceftriaxone yesterday. Cultures do seem to be susceptible to that. I will hold off on changing antibiotics and reevaluate tomorrow. There is also the possibility that she may go to the OR as per surgery 09/07 WBC improved, continue same abx tatus post wide debridement of ischial abscess. Wound apparently doing better and no need for wound VAC or for the OR intervention at this time. Patient will need to go to rehab as she will need wound care which she cannot provide a currently provided by family. She is still on IV antibiotics although she has improved with a white count coming down from 29.2-12.6. Wound culture is yielding multiple organisms. Patient is currently on ceftriaxone but I believe this can be changed to oral antibiotics in a few days and probably discharge to rehab early next week s - Time Time Spent with patient: 15-24 minutes Medications reviewed and adjusted accordingly: Yes Anticipated discharge: SNF Within: within 48 hours - Inpatient Certification Based on my medical assessment, after consideration of the patient's comorbidities, presenting symptoms, or acuity I expect that the services needed warrant INPATIENT care.: Yes I certify that my determination is in accordance with my understanding of Medicare's requirements for reasonable and necessary INPATIENT services [42 CFR 412.3e].: Yes Medical Necessity: Significant Comorbidiites Make Outpatient Treatment Too Risky, Need Close Monitoring Due to Risk of Patient Decompensation, Risk of Complication if Not Cared For in Hospital, Risk of Diagnosis Which Will Require Inpatient Eval/Care/Monitoring
[2019-09-12] MEDS: HEPARIN SOD (PORCINE) 5,000 UNIT/ML 1 ML VIAL SUBCUT SCH ×3 (05:17→21:51)
[2019-09-12] MEDS: OXYCODONE-ACETAMINOPHEN 5-325 MG TABLET PO PRN ×2 (06:57→20:26)
[2019-09-12] MEDS: INSULIN LISPRO 100 UNIT/ML 3 ML VIAL SUBCUT SCH ×4 (08:29→22:23)
[2019-09-12] MEDS: IBUPROFEN 800 MG TABLET PO SCH ×3 (09:51→18:22)
[2019-09-12] MEDS: DOCUSATE SODIUM 100 MG CAPSULE PO SCH ×2 (10:16→18:51)
[2019-09-12] MEDS: CEFTRIAXONE 2 GM/D5W RTU 2 GM/50 ML RTUPB IV SCH (10:17)
[2019-09-12] MEDS: LISINOPRIL 10 MG TABLET PO SCH (10:18)
[2019-09-12] MEDS: ESCITALOPRAM OXALATE 10 MG TABLET PO SCH (10:18)
[2019-09-12] MEDS: MORPHINE SULFATE 10 MG/ML INJ IV PRN ×2 (10:18→23:16)
[2019-09-12] MEDS: FAMOTIDINE 20 MG TABLET PO SCH ×2 (10:18→21:55)
[2019-09-12] MEDS: METOPROLOL TARTRATE 25 MG TABLET PO SCH ×2 (10:18→21:55)
[2019-09-12] MEDS ORDERED: LISINOPRIL 10 MG TABLET PO ONE (10:49)
[2019-09-12] MEDS: CHLORTHALIDONE 25 MG TABLET PO SCH (11:14)
[2019-09-12] MEDS ORDERED: MORPHINE SULFATE 10 MG/ML INJ IV PRN (11:59)
[2019-09-12] MEDS: DIPHENHYDRAMINE HCL 25 MG CAPSULE PO PRN (14:14)
--- NOTE | 2019-09-12 15:12 | PDOC PROGRESS REPORT ---
Subjective Progress Note for:: 09/12/19 Subjective:: 09/11/2019 Patient overall doing quite well today. She is having a great deal of pain during her dressing changes but otherwise her pain is well controlled. We will start transitioning her to oral pain medications rather than IV and I recommended that these be given her approximately 30 minutes prior to her dressing change. She is interested in starting a vegan diet and we spent a great deal of time talking about this yesterday. She has no new complaints. Surgery has signed off. We are waiting for her to be accepted at a nursing facility for wound care. 09/12/2019 Patient overall doing quite well other than having some new itching in her wounds which she associates with the healing process. PRN Benadryl has been ordered for this. Lotions have thus far been unsuccessful per nursing. Pain is well controlled for the most part when she is not having dressing changes. Blood pressure elevated and her medications have been increased today. We await placement for her to SNF. We will need to check her coronavirus test which is required for admission to any of the local nursing facilities. Reason For Visit: SEPSIS,BUTTOCKS ABSCESS Physical Exam Vital Signs: Temp Pulse Resp BP Pulse Ox 98.1 F 91 18 151/111 H 98 09/12/19 11:18 09/12/19 11:18 09/12/19 11:18 09/12/19 11:18 09/12/19 11:18 Intake & Output 09/11/19 09/12/19 09/13/19 06:59 06:59 06:59 Intake Total 1840 2130 840 Balance 1840 2130 840 Weight 208.5 kg 206.6 kg General appearance: PRESENT: no acute distress, well-developed, well-nourished Head exam: PRESENT: atraumatic, normocephalic Eye exam: PRESENT: conjunctiva pink Mouth exam: PRESENT: moist Respiratory exam: PRESENT: clear to auscultation marleny. ABSENT: rales, rhonchi, w heezes Cardiovascular exam: PRESENT: RRR. ABSENT: diastolic murmur, rubs, systolic murmur GI/Abdominal exam: PRESENT: normal bowel sounds, soft. ABSENT: distended, guarding, mass, organolmegaly, rebound, tenderness Neurological exam: PRESENT: alert, awake, oriented to person, oriented to place, oriented to time, oriented to situation Psychiatric exam: PRESENT: appropriate affect, normal mood Skin exam: PRESENT: dry, warm, other - Extensive lower extremity wounds healing well and clean Results Laboratory Results: 09/10/19 05:49 09/10/19 05:49 Impressions: Extremity Ultrasound 09/03/19 05:34 IMPRESSION: Moderate soft tissue edema/cellulitis of the right gluteal region. Limitation. Assessment and Plan - Diagnosis (1) Perirectal abscess Is this a current diagnosis for this admission?: Yes Plan: Now status post surgical I&D by Dr. Carlos. Wound culture shows gram-negative rods gram-positive cocci, and gram-positive rods Blood culture (1 of 4 bottles) shows gram-positive cocci in clusters. WBCs trending down Surgery is consulted; wound care per their expertise. Patient is admitted to the medical floor. She has been empirically placed on IV vancomycin and Zosyn. Antiemetics and analgesics as needed. Discharge planning is consulted 09/05 Will change abx to Ceftriaxone 09/07 awaiting evaluation by surgery for possible intervention again today patient remains n.p.o. 09/10/2019 Her extensive wounds will require a great deal of care after discharge. She will be unable to care for her own wounds to her severe obesity and the extensive nature of her wounds. She will need to go to nursing facility but we have yet to find one that accepts her. Continued on ceftriaxone 09/11/2019 Pain seems to be only uncontrolled during dressing changes. Transition oral narcotics and off of IV options. Surgery has signed off Needs to go to SNF for wound care, not accepted yet 09/12/2019 Patient having a great deal of itching at her wounds which she associates with healing otherwise pain is very well controlled she is comfortable As needed Alexandreadryl added (2) Hypertension Is this a current diagnosis for this admission?: Yes (3) Morbid obesity with BMI of 70 and over, adult Is this a current diagnosis for this admission?: Yes (4) Necrotizing soft tissue infection Is this a current diagnosis for this admission?: Yes (5) Prediabetes Is this a current diagnosis for this admission?: Yes (6) Sepsis Qualifiers: Sepsis type: sepsis due to unspecified organism Sepsis acute organ dysfunction status: unspecified Qualified Code(s): A41.9 - Sepsis, unspecified organism Is this a current diagnosis for this admission?: Yes (7) Depression Is this a current diagnosis for this admission?: Yes - Plan Summary Summary: Wound culture is yielding multiple organisms including gram-positive cocci in chains, Clostridium non-perfringens, E. coli and she had a blood culture that grew Staphylococcus in clusters. Blood culture has been negative. There was just 1 blood culture out of 4+ possibly contaminant. Looking at a profile of antibiotic sensitivity including E. coli I think ceftriaxone is probably a good choice as this will also cover the multiple gram-positive organisms. I will change antibiotics to ceftriaxone. Her white count is down to 14,000 09/06 count is slightly elevated however patient remains clinically stable. I did change to ceftriaxone yesterday. Cultures do seem to be susceptible to that. I will hold off on changing antibiotics and reevaluate tomorrow. There is also the possibility that she may go to the OR as per surgery 09/07 WBC improved, continue same abx tatus post wide debridement of ischial abscess. Wound apparently doing better and no need for wound VAC or for the OR intervention at this time. Patient will need to go to rehab as she will need wound care which she cannot provide a currently provided by family. She is still on IV antibiotics although she has improved with a white count coming down from 29.2-12.6. Wound culture is yielding multiple organisms. Patient is currently on ceftriaxone but I believe this can be changed to oral antibiotics in a few days and probably discharge to rehab early next week s - Time Time Spent with patient: 15-24 minutes Medications reviewed and adjusted accordingly: Yes Anticipated discharge: SNF Within: within 48 hours - Inpatient Certification Based on my medical assessment, after consideration of the patient's comorbidities, presenting symptoms, or acuity I expect that the services needed warrant INPATIENT care.: Yes I certify that my determination is in accordance with my understanding of Medicare's requirements for reasonable and necessary INPATIENT services [42 CFR 412.3e].: Yes Medical Necessity: Significant Comorbidiites Make Outpatient Treatment Too Risky, Need Close Monitoring Due to Risk of Patient Decompensation, Need for IV Antibiotics, Risk of Complication if Not Cared For in Hospital, Risk of Diagnosis Which Will Require Inpatient Eval/Care/Monitoring
[2019-09-13] MEDS: OXYCODONE-ACETAMINOPHEN 5-325 MG TABLET PO PRN ×2 (03:38→22:38)
[2019-09-13] MEDS: HEPARIN SOD (PORCINE) 5,000 UNIT/ML 1 ML VIAL SUBCUT SCH ×3 (05:06→21:21)
[2019-09-13] MEDS: INSULIN LISPRO 100 UNIT/ML 3 ML VIAL SUBCUT SCH ×4 (07:54→21:19)
[2019-09-13] MEDS: IBUPROFEN 800 MG TABLET PO SCH ×3 (08:17→16:38)
[2019-09-13] MEDS: CEFTRIAXONE 2 GM/D5W RTU 2 GM/50 ML RTUPB IV SCH (09:58)
[2019-09-13] MEDS: MORPHINE SULFATE 10 MG/ML INJ IV PRN ×2 (09:59→23:42)
[2019-09-13] MEDS: FAMOTIDINE 20 MG TABLET PO SCH ×2 (10:00→21:21)
[2019-09-13] MEDS: LISINOPRIL 10 MG TABLET PO SCH (10:00)
[2019-09-13] MEDS: METOPROLOL TARTRATE 25 MG TABLET PO SCH ×2 (10:00→21:21)
[2019-09-13] MEDS: CHLORTHALIDONE 25 MG TABLET PO SCH (10:00)
[2019-09-13] MEDS: ESCITALOPRAM OXALATE 10 MG TABLET PO SCH (10:01)
[2019-09-13] MEDS: DOCUSATE SODIUM 100 MG CAPSULE PO SCH ×2 (10:01→17:51)
[2019-09-13] MEDS: DIPHENHYDRAMINE HCL 25 MG CAPSULE PO PRN ×2 (10:28→21:31)
[2019-09-13] MEDS ORDERED: ONDANSETRON HCL INJ/PF 4 MG/2 ML SDV IV PRN (12:30)
--- NOTE | 2019-09-13 16:20 | PDOC TRANSFER SUMMARY ---
Impression - Admit/DC Date/PCP Admission Date/Primary Care Provider: 09/03/19 09:41 EMILIANA PARSONS PA-C Discharge Date: 09/13/19 - Discharge Diagnosis (1) Perirectal abscess Is this a current diagnosis for this admission?: Yes (2) Hypertension Is this a current diagnosis for this admission?: Yes (3) Morbid obesity with BMI of 70 and over, adult Is this a current diagnosis for this admission?: Yes (4) Necrotizing soft tissue infection Is this a current diagnosis for this admission?: Yes (5) Prediabetes Is this a current diagnosis for this admission?: Yes (6) Sepsis Is this a current diagnosis for this admission?: Yes (7) Depression Is this a current diagnosis for this admission?: Yes - Assessment Summary: Wound culture is yielding multiple organisms including gram-positive cocci in chains, Clostridium non-perfringens, E. coli and she had a blood culture that grew Staphylococcus in clusters. Blood culture has been negative. There was just 1 blood culture out of 4+ possibly contaminant. Looking at a profile of antibiotic sensitivity including E. coli I think ceftriaxone is probably a good choice as this will also cover the multiple gram-positive organisms. I will change antibiotics to ceftriaxone. Her white count is down to 14,000 09/06 count is slightly elevated however patient remains clinically stable. I did change to ceftriaxone yesterday. Cultures do seem to be susceptible to that. I will hold off on changing antibiotics and reevaluate tomorrow. There is also the possibility that she may go to the OR as per surgery 09/07 WBC improved, continue same abx tatus post wide debridement of ischial abscess. Wound apparently doing better and no need for wound VAC or for the OR intervention at this time. Patient will need to go to rehab as she will need wound care which she cannot provide a currently provided by family. She is still on IV antibiotics although she has improved with a white count coming down from 29.2-12.6. Wound culture is yielding multiple organisms. Patient is currently on ceftriaxone but I believe this can be changed to oral antibiotics in a few days and probably discharge to rehab early next week s - Additional Information Resuscitation Status: Full Code Discharge Diet: As Tolerated, Diabetic Discharge Activity: Activity As Tolerated Referrals: EMILIANA PARSONS PA-C [Primary Care Provider] - Follow up as needed Prescriptions: Cephalexin Monohydrate [Keflex 500 mg Capsule] 500 mg PO QID 3 Days #12 capsule Metformin HCl [Metformin ER Osmotic] 500 mg PO DAILY #30 tab.er.24 Oxycodone HCl/Acetaminophen [Percocet 5-325 mg Tablet] 1 tab PO Q4HP PRN #16 tablet PRN Reason: Home Medications: Escitalopram Oxalate [Lexapro] 10 mg PO DAILY 05/03/11 Albuterol Sulfate [Proair HFA Inhalation Aerosol 8.5 gm MDI] 2 puff IH Q4HP PRN 09/03/19 Cephalexin Monohydrate [Keflex 500 mg Capsule] 500 mg PO QID 3 Days #12 capsule 09/13/19 Chlorthalidone [Hygroton 25 mg Tablet] 25 mg PO DAILY tablet 09/13/19 Diphenhydramine HCl [Benadryl 25 mg Capsule] 25 mg PO Q6HP PRN capsule 09/13/19 Docusate Sodium [Colace 100 mg Capsule] 100 mg PO BID capsule 09/13/19 Famotidine [Pepcid 20 mg Tablet] 20 mg PO Q12 tablet 09/13/19 Ibuprofen [Motrin 800 mg Tablet] 800 mg PO Q8HP PRN tablet 09/13/19 Lisinopril [Prinivil 10 mg Tablet] 40 mg PO DAILY tablet 09/13/19 Mag Hydrox/Al Hydrox/Simeth [Maalox Plus Susp 30 Udcup] 30 ml PO Q6HP PRN udc 09/13/19 Metformin HCl [Metformin ER Osmotic] 500 mg PO DAILY #30 tab.er.24 09/13/19 Metoprolol Tartrate [Lopressor 25 mg Tablet] 25 mg PO Q12 tablet 09/13/19 Ondansetron HCl/Pf [Zofran Inj/Pf 4 mg/2 ml Sdv] 4 mg IV Q6HP PRN vial 09/13/19 Oxycodone HCl/Acetaminophen [Percocet 5-325 mg Tablet] 1 tab PO Q4HP PRN #16 tablet 09/13/19 History of Present Illiness History of Present Illness: Per admitting physician: "FACUNDO MARTINEZ is a 34 year old female with a past medical history of hypertension, depression, and morbid obesity who presented to the emergency department today with complaints of right buttocks pain. Evaluation emergency department revealed normal temperature, tachycardia 133, acceptable blood pressure, tachypnea, 100% on room air. Leukocytosis (WBCs 29.2 with a left-sided shift), mild anemia, Chemistry revealing elevated glucose 156 mildly elevated LFTs, and a negative urinalysis. Ultrasound revealed soft tissue erythema/cellulitis to the right gluteal region. Patient body habitus prevents CT scanning. She is referred to the hospital service for admission and management of the above-stated complaints and findings with surgery consulted." Hospital Course Hospital Course: Patient admitted for severe right buttock abscess and cellulitis, underwent extensive I&D of this area, culture sent to microbiology grew E. coli, Prevotella, E faecalis, Peptostreptococcus, Clostridium (non-perfringens). A single blood culture grew coag negative staph and a repeat blood culture grew nothing. Patient was initially started on vancomycin/Zosyn IV for several days and transition to IV ceftriaxone. On day 11 of IV antibiotics patient was discharged and transition to Keflex to complete a 14-day course. She will have close follow-up with general surgery and should also follow-up with her PCP. He has been recommended that she lose a considerable amount of weight safely and gradually by way of changing her diet to a vegan diet. She was counseled extensively on utilizing B vitamin, protein, and iron supplements to complement this diet. She will be sent to a nursing facility for continuing wound care when she could not receive at home with simple home health. Previously in hospital course: 09/11/2019 Patient overall doing quite well today. She is having a great deal of pain during her dressing changes but otherwise her pain is well controlled. We will start transitioning her to oral pain medications rather than IV and I recommended that these be given her approximately 30 minutes prior to her dressing change. She is interested in starting a vegan diet and we spent a great deal of time talking about this yesterday. She has no new complaints. Surgery has signed off. We are waiting for her to be accepted at a nursing facility for wound care. 09/12/2019 Patient overall doing quite well other than having some new itching in her wounds which she associates with the healing process. PRN Benadryl has been ordered for this. Lotions have thus far been unsuccessful per nursing. Pain is well controlled for the most part when she is not having dressing changes. Blood pressure elevated and her medications have been increased today. We await placement for her to SNF. We will need to check her coronavirus test which is required for admission to any of the local nursing facilities. (1) Perirectal abscess Is this a current diagnosis for this admission?: Yes Plan: 09/04 Now status post surgical I&D by Dr. Carlos. Wound culture shows gram-negative rods gram-positive cocci, and gram-positive rods Blood culture (1 of 4 bottles) shows gram-positive cocci in clusters. WBCs trending down Surgery is consulted; wound care per their expertise. Patient is admitted to the medical floor. She has been empirically placed on IV vancomycin and Zosyn. Antiemetics and analgesics as needed. Discharge planning is consulted 09/05 Will change abx to Ceftriaxone 09/07 awaiting evaluation by surgery for possible intervention again today patient remains n.p.o. 09/10/2019 Her extensive wounds will require a great deal of care after discharge. She will be unable to care for her own wounds to her severe obesity and the extensi ve nature of her wounds. She will need to go to nursing facility but we have yet to find one that accepts her. Continued on ceftriaxone 09/11/2019 Pain seems to be only uncontrolled during dressing changes. Transition oral narcotics and off of IV options. Surgery has signed off Needs to go to SNF for wound care, not accepted yet 09/12/2019 Patient having a great deal of itching at her wounds which she associates with healing otherwise pain is very well controlled she is comfortable As needed Benadryl added -Keflex at DC to complete 14d course (2) Hypertension Is this a current diagnosis for this admission?: Yes (3) Morbid obesity with BMI of 70 and over, adult Is this a current diagnosis for this admission?: Yes (4) Necrotizing soft tissue infection Is this a current diagnosis for this admission?: Yes (5) T2DM Is this a current diagnosis for this admission?: Yes -metformin at DC (6) Sepsis Qualifiers: Sepsis type: sepsis due to unspecified organism Sepsis acute organ dysfunction status: unspecified Qualified Code(s): A41.9 - Sepsis, unspecified organism Is this a current diagnosis for this admission?: Yes (7) Depression Is this a current diagnosis for this admission?: Yes Physical Exam Vital Signs: Temp Pulse Resp BP Pulse Ox 97.9 F 70 18 125/55 L 97 09/13/19 07:33 09/13/19 07:33 09/13/19 07:33 09/13/19 07:33 09/13/19 07:33 Intake & Output 09/12/19 09/13/19 09/14/19 06:59 06:59 06:59 Intake Total 2129 2320 650 Balance 21290 650 Weight 206.6 kg 202.6 kg General appearance: PRESENT: no acute distress, well-developed, well-nourished Head exam: PRESENT: atraumatic, normocephalic Eye exam: PRESENT: conjunctiva pink Mouth exam: PRESENT: moist Respiratory exam: PRESENT: clear to auscultation marleny. ABSENT: rales, rhonchi, wheezes Cardiovascular exam: PRESENT: RRR. ABSENT: diastolic murmur, rubs, systolic murmur GI/Abdominal exam: PRESENT: normal bowel sounds, soft. ABSENT: distended, guarding, mass, organolmegaly, rebound, tenderness Neurological exam: PRESENT: alert, awake, oriented to person, oriented to place, oriented to time, oriented to situation Psychiatric exam: PRESENT: appropriate affect, normal mood Skin exam: PRESENT: dry, warm, other - Large right buttock wound healing, pink and well appearing Results Laboratory Results: WBC 9.1 10^3/uL (4.0-10.5) 09/10/19 05:49 RBC 3.80 10^6/uL (3.72-5.28) 09/10/19 05:49 Hgb 9.2 g/dL (12.0-15.5) L 09/10/19 05:49 Hct 27.6 % (36.0-47.0) L 09/10/19 05:49 MCV 73 fl (80-97) L 09/10/19 05:49 MCH 24.3 pg (27.0-33.4) L 09/10/19 05:49 MCHC 33.4 g/dL (32.0-36.0) 09/10/19 05:49 RDW 17.0 % (11.5-14.0) H 09/10/19 05:49 Plt Count 485 10^3/uL (150-450) H 09/10/19 05:49 Lymph % (Auto) 23.2 % (13-45) 09/10/19 05:49 [place] % (Auto) 5.0 % (3-13) 09/10/19 05:49 Eos % (Auto) 7.2 % (0-6) H 09/10/19 05:49 Baso % (Auto) 0.8 % (0-2) 09/10/19 05:49 Absolute Neuts (auto) 5.8 10^3/uL (1.7-8.2) 09/10/19 05:49 Absolute Lymphs (auto) 2.1 10^3/uL (0.5-4.7) 09/10/19 05:49 Absolute Monos (auto) 0.5 10^3/uL (0.1-1.4) 09/10/19 05:49 Absolute Eos (auto) 0.7 10^3/uL (0.0-0.6) H 09/10/19 05:49 Absolute Basos (auto) 0.1 10^3/uL (0.0-0.2) 09/10/19 05:49 Total Counted 100 09/08/19 05:45 Seg Neutrophils % 63.8 % (42-78) 09/10/19 05:49 Seg Neuts % (Manual) 73 % (42-78) 09/08/19 05:45 Band Neutrophils % 6 % (3-5) H 09/03/19 02:06 Lymphocytes % (Manual) 18 % (13-45) 09/08/19 05:45 Atypical Lymphs % 1 % (0) 09/03/19 02:06 Monocytes % (Manual) 3 % (3-13) 09/08/19 05:45 Eosinophils % (Manual) 5 % (0-6) 09/08/19 05:45 Basophils % (Manual) 1 % (0-2) 09/08/19 05:45 Abs Neuts (Manual) 9.2 10^3/uL (1.7-8.2) H 09/08/19 05:45 Abs Lymphs (Manual) 2.3 10^3/uL (0.5-4.7) 09/08/19 05:45 Abs Monocytes (Manual) 0.4 10^3/uL (0.1-1.4) 09/08/19 05:45 Absolute Eos (Manual) 0.6 10^3/uL (0.0-0.6) 09/08/19 05:45 Abs Basophils (Manual) 0.1 10^3/uL (0.0-0.2) 09/08/19 05:45 Nucleated RBCs 1 /100 WBC (0) 09/08/19 05:45 Toxic Granulation 1+ 09/04/19 05:20 Platelet Comment ADEQUATE 09/08/19 05:45 Hypochromasia SLIGHT 09/08/19 05:45 Poikilocytosis 1+ 09/04/19 05:20 Anisocytosis 1+ 09/08/19 05:45 Microcytosis 1+ 09/08/19 05:45 Target Cells SLIGHT 09/04/19 05:20 Tear Drop Cells SLIGHT 09/03/19 02:06 Ovalocytes 1+ 09/04/19 05:20 PT 15.0 SEC (11.4-15.4) 09/03/19 02:06 INR 1.18 09/03/19 02:06 VBG pH 7.44 (7.30-7.42) H 09/03/19 02:43 VBG pCO2 38.0 mmHg (35-63) 09/03/19 02:43 VBG HCO3 25.5 mmol/L (20-32) 09/03/19 02:43 VBG Base Excess 1.5 mmol/L 09/03/19 02:43 Sodium 137.0 mmol/L (137-145) 09/10/19 05:49 Potassium 4.4 mmol/L (3.6-5.0) 09/10/19 05:49 Chloride 105 mmol/L (98-107) 09/10/19 05:49 Carbon Dioxide 27 mmol/L (22-30) 09/10/19 05:49 Anion Gap 5 (5-19) 09/10/19 05:49 BUN 11 mg/dL (7-20) 09/10/19 05:49 Creatinine 0.89 mg/dL (0.52-1.25) 09/10/19 05:49 Est GFR ( Amer) > 60 (>60) 09/10/19 05:49 Est GFR (MDRD) Non-Af > 60 (>60) 09/10/19 05:49 Glucose 104 mg/dL (75-110) 09/10/19 05:49 POC Glucose 106 mg/dL (70-110) 09/13/19 14:54 Hemoglobin A1c % 6.6 % (4.7-6.0) H 09/04/19 05:20 Lactic Acid 1.2 mmol/L (0.7-2.1) 09/03/19 09:09 Calcium 8.6 mg/dL (8.4-10.2) 09/10/19 05:49 Total Bilirubin 0.6 mg/dL (0.2-1.3) 09/03/19 02:06 Direct Bilirubin 0.2 mg/dL (0.0-0.4) 09/03/19 02:06 Neonat Total Bilirubin 0.4 mg/dL (0.1-1.1) 09/03/19 02:06 Neonat Direct Bilirubin 0.0 mg/dL (0.0-0.3) 09/03/19 02:06 Neonat Indirect Bili Not Reportable 09/03/19 02:06 AST 58 U/L (14-36) H 09/03/19 02:06 ALT 38 U/L (<35) H 09/03/19 02:06 Alkaline Phosphatase 156 U/L (38-126) H 09/03/19 02:06 Total Protein 7.1 g/dL (6.3-8.2) 09/03/19 02:06 Albumin 3.1 g/dL (3.5-5.0) L 09/03/19 02:06 Triglycerides 144 mg/dL (<150) 09/04/19 05:20 Cholesterol 86.40 mg/dL (0-200) 09/04/19 05:20 LDL Cholesterol Direct 52 mg/dL (<100) 09/04/19 05:20 VLDL Cholesterol 29.0 mg/dL (10-31) 09/04/19 05:20 HDL Cholesterol 12 mg/dL (>40) L 09/04/19 05:20 TSH 3.57 uIU/mL (0.47-4.68) 09/04/19 05:20 Serum HCG, Qual NEGATIVE (NEGATIVE) 09/03/19 02:06 Urine Color KAMALA 09/03/19 03:12 Urine Appearance TURBID 09/03/19 03:12 Urine pH 5.0 (5.0-9.0) 09/03/19 03:12 Ur Specific Ray 1.021 09/03/19 03:12 Urine Protein 30 mg/dL (NEGATIVE) H 09/03/19 03:12 Urine Glucose (UA) NEGATIVE mg/dL (NEGATIVE) 09/03/19 03:12 Urine Ketones NEGATIVE mg/dL (NEGATIVE) 09/03/19 03:12 Urine Blood SMALL (NEGATIVE) H 09/03/19 03:12 Urine Nitrite (Reflex) NEGATIVE (NEGATIVE) 09/03/19 03:12 Urine Bilirubin NEGATIVE (NEGATIVE) 09/03/19 03:12 Urine Urobilinogen 2.0 mg/dL (<2.0) H 09/03/19 03:12 Leukocyte Esterase Rfl NEGATIVE (NEGATIVE) 09/03/19 03:12 Urine WBC (Reflex) 2 /HPF 09/03/19 03:12 Squamous Epi Cells Auto 2 /HPF 09/03/19 03:12 Urine Mucus (Auto) MOD /LPF 09/03/19 03:12 Urine Ascorbic Acid NEGATIVE (NEGATIVE) 09/03/19 03:12 Time Trough Drawn 1341 09/06/19 13:41 Vancomycin Trough 16.5 ug/mL (5.0-20.0) 09/06/19 13:41 COVID-19 Source NASOPHARYNGEAL 09/07/19 14:30 COVID-19 (POWER) NOT DETECTED 09/07/19 14:30 Impressions: Extremity Ultrasound 09/03/19 05:34 IMPRESSION: Moderate soft tissue edema/cellulitis of the right gluteal region. Limitation. Plan Time Spent: Greater than 30 Minutes Stroke Is this a Stroke Patient?: No Acute Heart Failure - Is this a Heart Failure Patient?: No
[2019-09-14] MEDS: HEPARIN SOD (PORCINE) 5,000 UNIT/ML 1 ML VIAL SUBCUT SCH ×3 (05:38→21:09)
[2019-09-14] MEDS: OXYCODONE-ACETAMINOPHEN 5-325 MG TABLET PO PRN (06:51)
[2019-09-14] MEDS: INSULIN LISPRO 100 UNIT/ML 3 ML VIAL SUBCUT SCH ×4 (07:39→21:10)
[2019-09-14] MEDS: IBUPROFEN 800 MG TABLET PO SCH ×3 (08:39→16:43)
[2019-09-14] MEDS: DIPHENHYDRAMINE HCL 25 MG CAPSULE PO PRN ×3 (08:41→23:06)
[2019-09-14] MEDS: MORPHINE SULFATE 10 MG/ML INJ IV PRN ×3 (08:55→23:06)
[2019-09-14] MEDS: LISINOPRIL 10 MG TABLET PO SCH (09:29)
[2019-09-14] MEDS: CHLORTHALIDONE 25 MG TABLET PO SCH (09:29)
[2019-09-14] MEDS: ESCITALOPRAM OXALATE 10 MG TABLET PO SCH (09:30)
[2019-09-14] MEDS: FAMOTIDINE 20 MG TABLET PO SCH ×2 (09:30→21:09)
[2019-09-14] MEDS: METOPROLOL TARTRATE 25 MG TABLET PO SCH ×2 (09:30→21:09)
[2019-09-14] MEDS: DOCUSATE SODIUM 100 MG CAPSULE PO SCH ×2 (09:30→17:11)
--- NOTE | 2019-09-14 16:25 | PDOC PROGRESS REPORT ---
Subjective Progress Note for:: 09/14/19 Subjective:: 09/11/2019 Patient overall doing quite well today. She is having a great deal of pain during her dressing changes but otherwise her pain is well controlled. We will start transitioning her to oral pain medications rather than IV and I recommended that these be given her approximately 30 minutes prior to her dressing change. She is interested in starting a vegan diet and we spent a great deal of time talking about this yesterday. She has no new complaints. Surgery has signed off. We are waiting for her to be accepted at a nursing facility for wound care. 09/12/2019 Patient overall doing quite well other than having some new itching in her wounds which she associates with the healing process. PRN Benadryl has been ordered for this. Lotions have thus far been unsuccessful per nursing. Pain is well controlled for the most part when she is not having dressing changes. Blood pressure elevated and her medications have been increased today. We await placement for her to SNF. We will need to check her coronavirus test which is required for admission to any of the local nursing facilities. 09/14/2019 We are still waiting on SNF placement for patient. She was going to go to facility yesterday but her bed was given back to patient that was already st aying there. I have prescribed her metformin that she can start taking after discharge. Her wound is healing gradually and appears to have clean pink healthy tissue. Greatly concerned that the patient will pass stool onto her wound and have a recurrence of her abscess/sepsis/infection. She needs to be sent to a SNF rather than home with home health as she requires an enormous amount of assistance due to the size and location of her wound in relation to her massive body size that limits her ability to clean and care for herself. She is not and only has a 13-year-old daughter at home for the patient states is unable to care for her wounds. Patient has no specific complaints today other than some mild itching at the wound intermittently which is relieved by Benadryl. Reason For Visit: SEPSIS,BUTTOCKS ABSCESS Physical Exam Vital Signs: Temp Pulse Resp BP Pulse Ox 97.9 F 72 17 149/65 H 99 09/14/19 10:52 09/14/19 10:52 09/14/19 10:52 09/14/19 10:52 09/14/19 10:52 Intake & Output 09/13/19 09/14/19 09/15/19 06:59 06:59 06:59 Intake Total 2320 1570 Balance 2320 1570 Weight 202.6 kg 201.6 kg General appearance: PRESENT: no acute distress, well-developed, well-nourished Head exam: PRESENT: atraumatic, normocephalic Eye exam: PRESENT: conjunctiva pink Mouth exam: PRESENT: moist Respiratory exam: PRESENT: clear to auscultation marleny. ABSENT: rales, rhonchi, wheezes Cardiovascular exam: PRESENT: RRR. ABSENT: diastolic murmur, rubs, systolic murmur GI/Abdominal exam: PRESENT: normal bowel sounds, soft. ABSENT: distended, guarding, mass, organolmegaly, rebound, tenderness Neurological exam: PRESENT: alert, awake, oriented to person, oriented to place, oriented to time, oriented to situation Psychiatric exam: PRESENT: appropriate affect, normal mood Skin exam: PRESENT: dry, warm, other - [place] healthy-appearing healing large wound on right buttock Results Laboratory Results: 09/10/19 05:49 09/10/19 05:49 Impressions: Extremity Ultrasound 09/03/19 05:34 IMPRESSION: Moderate soft tissue edema/cellulitis of the right gluteal region. Limitation. Assessment and Plan - Diagnosis (1) Perirectal abscess Is this a current diagnosis for this admission?: Yes Plan: Now status post surgical I&D by Dr. Carlos. Wound culture shows gram-negative rods gram-positive cocci, and gram-positive rods Blood culture (1 of 4 bottles) shows gram-positive cocci in clusters. WBCs trending down Surgery is consulted; wound care per their expertise. Patient is admitted to the medical floor. She has been empirically placed on IV vancomycin and Zosyn. Antiemetics and analgesics as needed. Discharge planning is consulted 09/05 Will change abx to Ceftriaxone 09/07 awaiting evaluation by surgery for possible intervention again today patient remains n.p.o. 09/10/2019 Her extensive wounds will require a great deal of care after discharge. She will be unable to care for her own wounds to her severe obesity and the extens rea nature of her wounds. She will need to go to nursing facility but we have yet to find one that accepts her. Continued on ceftriaxone 09/11/2019 Pain seems to be only uncontrolled during dressing changes. Transition oral narcotics and off of IV options. Surgery has signed off Needs to go to SNF for wound care, not accepted yet 09/12/2019 Patient having a great deal of itching at her wounds which she associates with healing otherwise pain is very well controlled she is comfortable As needed Benadryl added 09/14/2019 Requires great deal of help caring for this wound and keeping stool out of the wound, require SNF placement and there is no bed available Antibiotics continue (2) Hypertension Is this a current diagnosis for this admission?: Yes (3) Morbid obesity with BMI of 70 and over, adult Is this a current diagnosis for this admission?: Yes (4) Necrotizing soft tissue infection Is this a current diagnosis for this admission?: Yes (5) Prediabetes Is this a current diagnosis for this admission?: Yes (6) Sepsis Qualifiers: Sepsis type: sepsis due to unspecified organism Sepsis acute organ dysfunction status: unspecified Qualified Code(s): A41.9 - Sepsis, unspecified organism Is this a current diagnosis for this admission?: Yes (7) Depression Is this a current diagnosis for this admission?: Yes - Plan Summary Summary: Wound culture is yielding multiple organisms including gram-positive cocci in chains, Clostridium non-perfringens, E. coli and she had a blood culture that grew Staphylococcus in clusters. Blood culture has been negative. There was just 1 blood culture out of 4+ possibly contaminant. Looking at a profile of antibiotic sensitivity including E. coli I think ceftriaxone is probably a good choice as this will also cover the multiple gram-positive organisms. I will change antibiotics to ceftriaxone. Her white count is down to 14,000 09/06 count is slightly elevated however patient remains clinically stable. I did change to ceftriaxone yesterday. Cultures do seem to be susceptible to that. I will hold off on changing antibiotics and reevaluate tomorrow. There is also the possibility that she may go to the OR as per surgery 09/07 WBC improved, continue same abx tatus post wide debridement of ischial abscess. Wound apparently doing better and no need for wound VAC or for the OR intervention at this time. Patient will need to go to rehab as she will need wound care which she cannot provide a currently provided by family. She is still on IV antibiotics although she has improved with a white count coming down from 29.2-12.6. Wound culture is yielding multiple organisms. Patient is currently on ceftriaxone but I believe this can be changed to oral antibiotics in a few days and probably discharge to rehab early next week s - Time Time Spent with patient: 15-24 minutes Medications reviewed and adjusted accordingly: Yes Anticipated discharge: SNF Within: within 48 hours - Inpatient Certification Based on my medical assessment, after consideration of the patient's comorbidities, presenting symptoms, or acuity I expect that the services needed warrant INPATIENT care.: Yes I certify that my determination is in accordance with my understanding of Medicare's requirements for reasonable and necessary INPATIENT services [42 CFR 412.3e].: Yes Medical Necessity: Significant Comorbidiites Make Outpatient Treatment Too Risky, Need Close Monitoring Due to Risk of Patient Decompensation, Need for IV Antibiotics, Risk of Complication if Not Cared For in Hospital, Risk of Diagnosis Which Will Require Inpatient Eval/Care/Monitoring
[2019-09-15] MEDS: HEPARIN SOD (PORCINE) 5,000 UNIT/ML 1 ML VIAL SUBCUT SCH ×3 (05:34→21:42)
[2019-09-15] MEDS: MORPHINE SULFATE 10 MG/ML INJ IV PRN ×4 (05:35→23:50)
[2019-09-15] MEDS: IBUPROFEN 800 MG TABLET PO SCH ×3 (07:58→17:07)
[2019-09-15] MEDS: METOPROLOL TARTRATE 25 MG TABLET PO SCH ×2 (10:49→21:47)
[2019-09-15] MEDS: ESCITALOPRAM OXALATE 10 MG TABLET PO SCH (10:49)
[2019-09-15] MEDS: CHLORTHALIDONE 25 MG TABLET PO SCH (10:49)
[2019-09-15] MEDS: FAMOTIDINE 20 MG TABLET PO SCH ×2 (10:50→21:43)
[2019-09-15] MEDS: LISINOPRIL 10 MG TABLET PO SCH (10:51)
[2019-09-15] MEDS: DIPHENHYDRAMINE HCL 25 MG CAPSULE PO PRN (10:54)
[2019-09-15] MEDS: OXYCODONE-ACETAMINOPHEN 5-325 MG TABLET PO PRN (10:59)
[2019-09-15] MEDS: INSULIN LISPRO 100 UNIT/ML 3 ML VIAL SUBCUT SCH ×4 (11:40→21:43)
[2019-09-15] MEDS: DOCUSATE SODIUM 100 MG CAPSULE PO SCH ×2 (11:41→17:09)
--- NOTE | 2019-09-15 12:45 | PDOC PROGRESS REPORT ---
Subjective Progress Note for:: 09/15/19 Subjective:: 09/11/2019 Patient overall doing quite well today. She is having a great deal of pain during her dressing changes but otherwise her pain is well controlled. We will start transitioning her to oral pain medications rather than IV and I recommended that these be given her approximately 30 minutes prior to her dressing change. She is interested in starting a vegan diet and we spent a great deal of time talking about this yesterday. She has no new complaints. Surgery has signed off. We are waiting for her to be accepted at a nursing facility for wound care. 09/12/2019 Patient overall doing quite well other than having some new itching in her wounds which she associates with the healing process. PRN Benadryl has been ordered for this. Lotions have thus far been unsuccessful per nursing. Pain is well controlled for the most part when she is not having dressing changes. Blood pressure elevated and her medications have been increased today. We await placement for her to SNF. We will need to check her coronavirus test which is required for admission to any of the local nursing facilities. 09/14/2019 We are still waiting on SNF placement for patient. She was going to go to facility yesterday but her bed was given back to patient that was already st aying there. I have prescribed her metformin that she can start taking after discharge. Her wound is healing gradually and appears to have clean pink healthy tissue. Greatly concerned that the patient will pass stool onto her wound and have a recurrence of her abscess/sepsis/infection. She needs to be sent to a SNF rather than home with home health as she requires an enormous amount of assistance due to the size and location of her wound in relation to her massive body size that limits her ability to clean and care for herself. She is not and only has a 13-year-old daughter at home for the patient states is unable to care for her wounds. Patient has no specific complaints today other than some mild itching at the wound intermittently which is relieved by Benadryl. 09/15/2019 Patient rather upset during our encounter this morning due to her wound packing falling into the toilet while she was having a large bowel movement this morning. She was upset that the nurse removed the packing and then used a wipe to clean her wound. Patient states her wound as a burning sensation from the cleaning, call and request that her current nurse come in and irrigate the wound. I discussed this with the patient's nurse today who agreed to clean the wound and put new dressings on it. I authorized an additional dose of morphine for this extra dressing change given the patient has severe pain whenever her dressings are removed. We are still looking for a nursing facility to accept the patient. Patient has no other complaints. Reason For Visit: SEPSIS,BUTTOCKS ABSCESS Physical Exam Vital Signs: Temp Pulse Resp BP Pulse Ox 97.6 F 107 H 18 127/51 H 98 09/15/19 11:47 09/15/19 11:47 09/15/19 11:47 09/15/19 11:47 09/15/19 11:47 Intake & Output 09/14/19 09/15/19 09/16/19 06:59 06:59 06:59 Intake Total 1570 645 Balance 1570 645 Weight 201.6 kg 201 kg General appearance: PRESENT: no acute distress, morbidly obese, obese Head exam: PRESENT: atraumatic, normocephalic Eye exam: PRESENT: conjunctiva pink Mouth exam: PRESENT: moist Respiratory exam: PRESENT: clear to auscultation marleny. ABSENT: rales, rhonchi, wheezes GI/Abdominal exam: PRESENT: normal bowel sounds, soft. ABSENT: distended, gu arding, mass, organolmegaly, rebound, tenderness Neurological exam: PRESENT: alert, awake, oriented to person, oriented to place, oriented to time, oriented to situation Psychiatric exam: PRESENT: appropriate affect, normal mood Skin exam: PRESENT: dry, warm, other - Surgical wound very tender today but still well appearing and healing Results Laboratory Results: 09/10/19 05:49 09/10/19 05:49 Impressions: Extremity Ultrasound 09/03/19 05:34 IMPRESSION: Moderate soft tissue edema/cellulitis of the right gluteal region. Limitation. Assessment and Plan - Diagnosis (1) Perirectal abscess Is this a current diagnosis for this admission?: Yes Plan: Now status post surgical I&D by Dr. Carlos. Wound culture shows gram-negative rods gram-positive cocci, and gram-positive rods Blood culture (1 of 4 bottles) shows gram-positive cocci in clusters. WBCs trending down Surgery is consulted; wound care per their expertise. Patient is admitted to the medical floor. She has been empirically placed on IV vancomycin and Zosyn. Antiemetics and analgesics as needed. Discharge planning is consulted 09/05 Will change abx to Ceftriaxone 09/07 awaiting evaluation by surgery for possible intervention again today patient remains n.p.o. 09/10/2019 Her extensive wounds will require a great deal of care after discharge. She will be unable to care for her own wounds to her severe obesity and the extensive nature of her wounds. She will need to go to nursing facility but we have yet to find one that accepts her. Continued on ceftriaxone 09/11/2019 Pain seems to be only uncontrolled during dressing changes. Transition oral narcotics and off of IV options. Surgery has signed off Needs to go to SNF for wound care, not accepted yet 09/12/2019 Patient having a great deal of itching at her wounds which she associates with healing otherwise pain is very well controlled she is comfortable As needed Benadryl added 09/14/2019 Requires great deal of help caring for this wound and keeping stool out of the wound, require SNF placement and there is no bed available Antibiotics continue 09/15/2019 Wound dressings fell into the toilet during a large BM and unclear if there was any exposure of the wound to stool. Wound is been cleaned and redressed twice since then. Continue pain management local wound care Still looking for SNF that can provide wound care (2) Hypertension Is this a current diagnosis for this admission?: Yes (3) Morbid obesity with BMI of 70 and over, adult Is this a current diagnosis for this admission?: Yes (4) Necrotizing soft tissue infection Is this a current diagnosis for this admission?: Yes (5) Prediabetes Is this a current diagnosis for this admission?: Yes (6) Sepsis Qualifiers: Sepsis type: sepsis due to unspecified organism Sepsis acute organ dysfunction status: unspecified Qualified Code(s): A41.9 - Sepsis, unspecified organism Is this a current diagnosis for this admission?: Yes (7) Depression Is this a current diagnosis for this admission?: Yes - Plan Summary Summary: Wound culture is yielding multiple organisms including gram-positive cocci in chains, Clostridium non-perfringens, E. coli and she had a blood culture that grew Staphylococcus in clusters. Blood culture has been negative. There was just 1 blood culture out of 4+ possibly contaminant. Looking at a profile of antibiotic sensitivity including E. coli I think ceftriaxone is probably a good choice as this will also cover the multiple gram-positive organisms. I will change antibiotics to ceftriaxone. Her white count is down to 14,000 09/06 count is slightly elevated however patient remains clinically stable. I did change to ceftriaxone yesterday. Cultures do seem to be susceptible to that. I will hold off on changing antibiotics and reevaluate tomorrow. There is also the possibility that she may go to the OR as per surgery 09/07 WBC improved, continue same abx tatus post wide debridement of ischial abscess. Wound apparently doing better and no need for wound VAC or for the OR intervention at this time. Patient will need to go to rehab as she will need wound care which she cannot provide a currently provided by family. She is still on IV antibiotics although she has improved with a white count coming down from 29.2-12.6. Wound culture is yielding multiple organisms. Patient is currently on ceftriaxone but I believe this can be changed to oral antibiotics in a few days and probably discharge to rehab early next week s - Time Time Spent with patient: 15-24 minutes Medications reviewed and adjusted accordingly: Yes Anticipated discharge: SNF - Inpatient Certification Based on my medical assessment, after consideration of the patient's comorbidities, presenting symptoms, or acuity I expect that the services needed warrant INPATIENT care.: Yes I certify that my determination is in accordance with my understanding of Medicare's requirements for reasonable and necessary INPATIENT services [42 CFR 412.3e].: Yes Medical Necessity: Significant Comorbidiites Make Outpatient Treatment Too Risky, Need Close Monitoring Due to Risk of Patient Decompensation, Risk of Complication if Not Cared For in Hospital, Risk of Diagnosis Which Will Require Inpatient Eval/Care/Monitoring
[2019-09-15] MEDS: NYSTATIN CREAM 15 GM TP SCH (21:43)
[2019-09-16] MEDS: HEPARIN SOD (PORCINE) 5,000 UNIT/ML 1 ML VIAL SUBCUT SCH ×3 (06:20→22:11)
[2019-09-16] MEDS: INSULIN LISPRO 100 UNIT/ML 3 ML VIAL SUBCUT SCH ×4 (08:02→22:12)
[2019-09-16] MEDS: IBUPROFEN 800 MG TABLET PO SCH ×3 (08:02→17:52)
[2019-09-16] MEDS: MORPHINE SULFATE 10 MG/ML INJ IV PRN ×3 (08:32→16:46)
[2019-09-16] MEDS: DOCUSATE SODIUM 100 MG CAPSULE PO SCH ×2 (10:22→17:57)
[2019-09-16] MEDS: NIFEDIPINE 30 MG TAB.ER.24 PO SCH (10:36)
[2019-09-16] MEDS: ESCITALOPRAM OXALATE 10 MG TABLET PO SCH (10:36)
[2019-09-16] MEDS: DIPHENHYDRAMINE HCL 25 MG CAPSULE PO PRN ×2 (10:36→17:55)
[2019-09-16] MEDS: LISINOPRIL 10 MG TABLET PO SCH (10:36)
[2019-09-16] MEDS: FAMOTIDINE 20 MG TABLET PO SCH ×2 (10:37→22:11)
[2019-09-16] MEDS: NYSTATIN CREAM 15 GM TP SCH ×2 (10:37→22:11)
[2019-09-16] MEDS: CHLORTHALIDONE 25 MG TABLET PO SCH (10:37)
[2019-09-16] MEDS: METOPROLOL TARTRATE 25 MG TABLET PO SCH ×2 (10:37→22:10)
--- NOTE | 2019-09-16 12:17 | PDOC PROGRESS REPORT ---
Subjective Progress Note for:: 09/16/19 Subjective:: 09/11/2019 Patient overall doing quite well today. She is having a great deal of pain during her dressing changes but otherwise her pain is well controlled. We will start transitioning her to oral pain medications rather than IV and I recommended that these be given her approximately 30 minutes prior to her dressing change. She is interested in starting a vegan diet and we spent a great deal of time talking about this yesterday. She has no new complaints. Surgery has signed off. We are waiting for her to be accepted at a nursing facility for wound care. 09/12/2019 Patient overall doing quite well other than having some new itching in her wounds which she associates with the healing process. PRN Benadryl has been ordered for this. Lotions have thus far been unsuccessful per nursing. Pain is well controlled for the most part when she is not having dressing changes. Blood pressure elevated and her medications have been increased today. We await placement for her to SNF. We will need to check her coronavirus test which is required for admission to any of the local nursing facilities. 09/14/2019 We are still waiting on SNF placement for patient. She was going to go to facility yesterday but her bed was given back to patient that was already st aying there. I have prescribed her metformin that she can start taking after discharge. Her wound is healing gradually and appears to have clean pink healthy tissue. Greatly concerned that the patient will pass stool onto her wound and have a recurrence of her abscess/sepsis/infection. She needs to be sent to a SNF rather than home with home health as she requires an enormous amount of assistance due to the size and location of her wound in relation to her massive body size that limits her ability to clean and care for herself. She is not and only has a 13-year-old daughter at home for the patient states is unable to care for her wounds. Patient has no specific complaints today other than some mild itching at the wound intermittently which is relieved by Benadryl. 09/15/2019 Patient rather upset during our encounter this morning due to her wound packing falling into the toilet while she was having a large bowel movement this morning. She was upset that the nurse removed the packing and then used a wipe to clean her wound. Patient states her wound as a burning sensation from the cleaning, call and request that her current nurse come in and irrigate the wound. I discussed this with the patient's nurse today who agreed to clean the wound and put new dressings on it. I authorized an additional dose of morphine for this extra dressing change given the patient has severe pain whenever her dressings are removed. We are still looking for a nursing facility to accept the patient. Patient has no other complaints. 09/16/2019 Patient doing much better today compared to yesterday. States her wound is less painful since her nurse Yareli irrigated it with saline yesterday. She is ambulating a bit more around the halls but still requires a great deal of assistance with her wound care she has no new complaints today. We are still waiting for a bed at a SNF.. Reason For Visit: SEPSIS,BUTTOCKS ABSCESS Physical Exam Vital Signs: Temp Pulse Resp BP Pulse Ox 98.2 F 83 16 106/52 L 100 09/16/19 09:14 09/16/19 09:14 09/16/19 09:14 09/16/19 09:14 09/16/19 09:14 Intake & Output 09/15/19 09/16/19 09/17/19 06:59 06:59 06:59 Intake Total 645 1040 Balance 645 1040 Weight 201 kg 197.9 kg General appearance: PRESENT: no acute distress, well-developed, well-nourished Head exam: PRESENT: atraumatic, normocephalic Eye exam: PRESENT: conjunctiva pink Mouth exam: PRESENT: moist Respiratory exam: PRESENT: clear to auscultation marleny. ABSENT: rales, rhonchi, wheezes GI/Abdominal exam: PRESENT: normal bowel sounds, soft. ABSENT: distended, guarding, mass, organolmegaly, rebound, tenderness Neurological exam: PRESENT: alert, awake, oriented to person, oriented to place, oriented to time, oriented to situation Psychiatric exam: PRESENT: appropriate affect, normal mood Skin exam: PRESENT: dry, warm, other - Buttock wound appears to be healing and is quite well-appearing. No drainage or pus but spray machine tender Results Laboratory Results: 09/10/19 05:49 09/10/19 05:49 Impressions: Extremity Ultrasound 09/03/19 05:34 IMPRESSION: Moderate soft tissue edema/cellulitis of the right gluteal region. Limitation. Assessment and Plan - Diagnosis (1) Perirectal abscess Is this a current diagnosis for this admission?: Yes (2) Hypertension Is this a current diagnosis for this admission?: Yes (3) Morbid obesity with BMI of 70 and over, adult Is this a current diagnosis for this admission?: Yes (4) Necrotizing soft tissue infection Is this a current diagnosis for this admission?: Yes (5) Prediabetes Is this a current diagnosis for this admission?: Yes (6) Sepsis Qualifiers: Sepsis type: sepsis due to unspecified organism Sepsis acute organ dysfunction status: unspecified Qualified Code(s): A41.9 - Sepsis, unspecified organism Is this a current diagnosis for this admission?: Yes (7) Depression Is this a current diagnosis for this admission?: Yes - Plan Summary Summary: Wound culture is yielding multiple organisms including gram-positive cocci in chains, Clostridium non-perfringens, E. coli and she had a blood culture that grew Staphylococcus in clusters. Blood culture has been negative. There was just 1 blood culture out of 4+ possibly contaminant. Looking at a profile of antibiotic sensitivity including E. coli I think ceftriaxone is probably a good choice as this will also cover the multiple gram-positive organisms. I will change antibiotics to ceftriaxone. Her white count is down to 14,000 09/06 count is slightly elevated however patient remains clinically stable. I did change to ceftriaxone yesterday. Cultures do seem to be susceptible to that. I will hold off on changing antibiotics and reevaluate tomorrow. There is also the possibility that she may go to the OR as per surgery 09/07 WBC improved, continue same abx tatus post wide debridement of ischial abscess. Wound apparently doing better and no need for wound VAC or for the OR intervention at this time. Patient will need to go to rehab as she will need wound care which she cannot provide a currently provided by family. She is still on IV antibiotics although she has improved with a white count coming down from 29.2-12.6. Wound culture is yielding multiple organisms. Patient is currently on ceftriaxone but I believe this can be changed to oral antibiotics in a few days and probably discharge to rehab early next week s - Time Time Spent with patient: 15-24 minutes Medications reviewed and adjusted accordingly: Yes Anticipated discharge: SNF - Inpatient Certification Based on my medical assessment, after consideration of the patient's comorbidities, presenting symptoms, or acuity I expect that the services needed warrant INPATIENT care.: Yes I certify that my determination is in accordance with my understanding of Medicare's requirements for reasonable and necessary INPATIENT services [42 CFR 412.3e].: Yes Medical Necessity: Risk of Complication if Not Cared For in Hospital
[2019-09-17] MEDS: MORPHINE SULFATE 10 MG/ML INJ IV PRN ×4 (00:38→20:17)
[2019-09-17] MEDS: HEPARIN SOD (PORCINE) 5,000 UNIT/ML 1 ML VIAL SUBCUT SCH ×3 (05:18→22:26)
[2019-09-17] MEDS: INSULIN LISPRO 100 UNIT/ML 3 ML VIAL SUBCUT SCH ×4 (08:05→22:17)
[2019-09-17] MEDS: IBUPROFEN 800 MG TABLET PO SCH ×3 (08:18→16:37)
[2019-09-17] MEDS: DOCUSATE SODIUM 100 MG CAPSULE PO SCH ×2 (09:51→17:34)
[2019-09-17] MEDS: CHLORTHALIDONE 25 MG TABLET PO SCH (09:53)
[2019-09-17] MEDS: METOPROLOL TARTRATE 25 MG TABLET PO SCH ×2 (09:53→22:25)
[2019-09-17] MEDS: FAMOTIDINE 20 MG TABLET PO SCH ×2 (09:53→22:25)
[2019-09-17] MEDS: NYSTATIN CREAM 15 GM TP SCH ×2 (09:53→23:10)
[2019-09-17] MEDS: ESCITALOPRAM OXALATE 10 MG TABLET PO SCH (09:53)
[2019-09-17] MEDS: LISINOPRIL 10 MG TABLET PO SCH (09:53)
[2019-09-17] MEDS: NIFEDIPINE 30 MG TAB.ER.24 PO SCH (09:53)
[2019-09-17] MEDS: DIPHENHYDRAMINE HCL 25 MG CAPSULE PO PRN ×2 (10:19→20:37)
[2019-09-17] MEDS: OXYCODONE-ACETAMINOPHEN 5-325 MG TABLET PO PRN (16:41)
--- NOTE | 2019-09-17 17:10 | PDOC PROGRESS REPORT ---
Subjective Progress Note for:: 09/17/19 Subjective:: FACUNDO MARTINEZ is a 34 year old female with a past medical history of hypertension, depression, and morbid obesity who was admitted 09/03/2019 with a perirectal abscess requiring surgical intervention. Patient was seen on morning rounds. She is found resting in bed on room air. Currently in prone position, breathing without difficulty, while having wound care. She reports continued wound discomfort. Otherwise, she denies fever, chills, chest pain, palpitations, dyspnea, abdominal pain, nausea. She has no other questions or concerns at this time. Nursing reports that patient was incontinent of urine. Advised patient to begin a toileting schedule to prevent further episodes. Also recommended that the patient began discussing with her friends and family members a potential discharge to home. Encouraged her to find someone who with whom she would feel comfortable providing wound care so that they could be invited into the hospital for teaching. Reason For Visit: SEPSIS,BUTTOCKS ABSCESS Physical Exam Vital Signs: Temp Pulse Resp BP Pulse Ox 98.1 F 67 16 99/52 L 97 09/17/19 15:27 09/17/19 15:27 09/17/19 15:27 09/17/19 15:27 09/17/19 15:27 Intake & Output 09/16/19 09/17/19 09/18/19 06:59 06:59 06:59 Intake Total 1040 1150 240 Balance 1040 1150 240 Weight 197.9 kg 197.9 kg General appearance: PRESENT: no acute distress, cooperative, morbidly obese, well-developed, well-nourished Head exam: PRESENT: atraumatic, normocephalic Eye exam: PRESENT: conjunctiva pink, EOMI, PERRLA. ABSENT: scleral icterus Mouth exam: PRESENT: moist, tongue midline Respiratory exam: PRESENT: clear to auscultation marleny. ABSENT: rales, rhonchi, wheezes Pulses: PRESENT: normal dorsalis pedis pul Vascular exam: PRESENT: normal capillary refill Extremities exam: PRESENT: full ROM. ABSENT: calf tenderness, clubbing, pedal edema Musculoskeletal exam: PRESENT: ambulatory Neurological exam: PRESENT: alert, awake, oriented to person, oriented to place, oriented to time, oriented to situation, CN II-XII grossly intact. ABSENT: motor sensory deficit Psychiatric exam: PRESENT: appropriate affect, normal mood. ABSENT: homicidal ideation, suicidal ideation Skin exam: PRESENT: dry, warm, other - Large buttocks wound; granulation tissue noted. No surrounding erythema or drainage present. Appears to be healing well.. ABSENT: cyanosis, rash Results Laboratory Results: 09/10/19 05:49 09/10/19 05:49 Impressions: Extremity Ultrasound 09/03/19 05:34 IMPRESSION: Moderate soft tissue edema/cellulitis of the right gluteal region. Limitation. Assessment and Plan - Diagnosis (1) Perirectal abscess Is this a current diagnosis for this admission?: Yes Plan: Now status post surgical I&D by Dr. Carlos. Wound culture shows gram-negative rods gram-positive cocci, and gram-positive rods Blood culture (1 of 4 bottles) shows gram-positive cocci in clusters. WBCs trending down Surgery is consulted; wound care per their expertise. Patient is admitted to the medical floor. She has been empirically placed on IV vancomycin and Zosyn. Antiemetics and analgesics as needed. Discharge planning is consulted 09/05 Will change abx to Ceftriaxone 09/07 awaiting evaluation by surgery for possible intervention again today patient remains n.p.o. 09/10/2019 Her extensive wounds will require a great deal of care after discharge. She will be unable to care for her own wounds to her severe obesity and the extensive nature of her wounds. She will need to go to nursing facility but we have yet to find one that accepts her. Continued on ceftriaxone 09/11/2019 Pain seems to be only uncontrolled during dressing changes. Transition oral narcotics and off of IV options. Surgery has signed off Needs to go to SNF for wound care, not accepted yet 09/12/2019 Patient having a great deal of itching at her wounds which she associates with healing otherwise pain is very well controlled she is comfortable As needed Benadryl added 09/14/2019 Requires great deal of help caring for this wound and keeping stool out of the wound, require SNF placement and there is no bed available Antibiotics continue 09/15/2019 Wound dressings fell into the toilet during a large BM and unclear if there was any exposure of the wound to stool. Wound is been cleaned and redressed twice since then. Continue pain management local wound care Still looking for SNF that can provide wound care 09/17/2019 Healing well. Continue wound care as directed by surgery. (2) Hypertension Is this a current diagnosis for this admission?: Yes Plan: Continue home dose Lisinopril. IV hydralazine as needed for blood pressure control. Appropriate pain control. Cardiac diet. 09/10/2019 BP uncontrolled IV hydralazine stopped, we can control her blood pressure with orals rather than IV PRN medications that can cause abrupt unpredictable drops Increase lisinopril dose Start chlorthalidone 09/11/2019 Uncontrolled, increased meds, added lisinopril 09/17/2019 Improved BP control Continue Lisinopril, Metoprolol, Nifedipine, and Chlorthalidone Cardiac diet (3) Depression Is this a current diagnosis for this admission?: Yes Plan: Continue home dose Lexapro. (4) Morbid obesity with BMI of 60.0-69.9, adult Is this a current diagnosis for this admission?: Yes Plan: BMI 62.6 The patient's super morbid obesity requires additional nursing support. Bariatric bed. She is at risk for further wound breakdown and/or respiratory complications. Lifestyle modification dietary discretion are strongly advised. TSH and lipid panel are acceptable other than low HDL. A1c 6.6% Registered dietitian is consulted. (5) Prediabetes Is this a current diagnosis for this admission?: Yes Plan: A1c 6.6%. Discussed with patient has previously been on metformin. We will plan on resuming at discharge. While admitted, will provide Accu-Cheks before meals and at bedtime with Humalog for sliding scale coverage. Registered dietitian is consulted. - Plan Summary Summary: Wound culture is yielding multiple organisms including gram-positive cocci in chains, Clostridium non-perfringens, E. coli and she had a blood culture that grew Staphylococcus in clusters. Blood culture has been negative. There was just 1 blood culture out of 4+ possibly contaminant. Looking at a profile of antibiotic sensitivity including E. coli I think ceftriaxone is probably a good choice as this will also cover the multiple gram-positive organisms. I will change antibiotics to ceftriaxone. Her white count is down to 14,000 09/06 count is slightly elevated however patient remains clinically stable. I did change to ceftriaxone yesterday. Cultures do seem to be susceptible to that. I will hold off on changing antibiotics and reevaluate tomorrow. There is also the possibility that she may go to the OR as per surgery 09/07 WBC improved, continue same abx 4/30Status post wide debridement of ischial abscess. Wound apparently doing better and no need for wound VAC or for the OR intervention at this time. Patient will need to go to rehab as she will need wound care which she cannot provide a currently provided by family. She is still on IV antibiotics although she has improved with a white count coming down from 29.2-12.6. Wound culture is yielding multiple organisms. Patient is currently on ceftriaxone but I believe this can be changed to oral antibiotics in a few days and probably d ischarge to rehab early next week s - Time Time Spent with patient: 15-24 minutes Medications reviewed and adjusted accordingly: Yes Anticipated discharge: SNF Within: when bed available
[2019-09-17] MEDS ORDERED: NYSTATIN CREAM 15 GM ONE (23:17)
[2019-09-18] MEDS: MORPHINE SULFATE 10 MG/ML INJ IV PRN ×5 (01:14→23:53)
[2019-09-18] MEDS: OXYCODONE-ACETAMINOPHEN 5-325 MG TABLET PO PRN (03:35)
[2019-09-18] MEDS: DIPHENHYDRAMINE HCL 25 MG CAPSULE PO PRN ×2 (03:35→20:32)
[2019-09-18] MEDS: HEPARIN SOD (PORCINE) 5,000 UNIT/ML 1 ML VIAL SUBCUT SCH ×3 (06:05→22:25)
[2019-09-18] MEDS: INSULIN LISPRO 100 UNIT/ML 3 ML VIAL SUBCUT SCH ×4 (07:47→22:26)
[2019-09-18] MEDS: IBUPROFEN 800 MG TABLET PO SCH ×3 (07:53→17:14)
[2019-09-18] MEDS: DOCUSATE SODIUM 100 MG CAPSULE PO SCH ×2 (09:34→17:01)
[2019-09-18] MEDS: NIFEDIPINE 30 MG TAB.ER.24 PO SCH (10:01)
[2019-09-18] MEDS: METOPROLOL TARTRATE 25 MG TABLET PO SCH ×2 (10:42→22:25)
[2019-09-18] MEDS: CHLORTHALIDONE 25 MG TABLET PO SCH (10:42)
[2019-09-18] MEDS: NYSTATIN CREAM 15 GM TP SCH ×2 (10:42→22:27)
[2019-09-18] MEDS: LISINOPRIL 10 MG TABLET PO SCH (10:42)
[2019-09-18] MEDS: FAMOTIDINE 20 MG TABLET PO SCH ×2 (10:42→22:26)
[2019-09-18] MEDS: ESCITALOPRAM OXALATE 10 MG TABLET PO SCH (10:42)
[2019-09-18] MEDS ORDERED: FLUCONAZOLE 100 MG TABLET PO ONE (17:26)
--- NOTE | 2019-09-18 17:42 | PDOC PROGRESS REPORT ---
Subjective Subjective:: 09/11/2019 Patient overall doing quite well today. She is having a great deal of pain during her dressing changes but otherwise her pain is well controlled. We will start transitioning her to oral pain medications rather than IV and I recommended that these be given her approximately 30 minutes prior to her dressing change. She is interested in starting a vegan diet and we spent a great deal of time talking about this yesterday. She has no new complaints. Surgery has signed off. We are waiting for her to be accepted at a nursing facility for wound care. 09/12/2019 Patient overall doing quite well other than having some new itching in her wounds which she associates with the healing process. PRN Benadryl has been ordered for this. Lotions have thus far been unsuccessful per nursing. Pain is well controlled for the most part when she is not having dressing changes. Blood pressure elevated and her medications have been increased today. We await placement for her to SNF. We will need to check her coronavirus test which is required for admission to any of the local nursing facilities. 09/14/2019 We are still waiting on SNF placement for patient. She was going to go to facility yesterday but her bed was given back to patient that was already staying there. I have prescribed her metformin that she can start taking after discharge. Her wound is healing gradually and appears to have clean pink he althy tissue. Greatly concerned that the patient will pass stool onto her wound and have a recurrence of her abscess/sepsis/infection. She needs to be sent to a SNF rather than home with home health as she requires an enormous amount of assistance due to the size and location of her wound in relation to her massive body size that limits her ability to clean and care for herself. She is not and only has a 13-year-old daughter at home for the patient states is unable to care for her wounds. Patient has no specific complaints today other than some mild itching at the wound intermittently which is relieved by Benadryl. 09/15/2019 Patient rather upset during our encounter this morning due to her wound packing falling into the toilet while she was having a large bowel movement this mo rning. She was upset that the nurse removed the packing and then used a wipe to clean her wound. Patient states her wound as a burning sensation from the cleaning, call and request that her current nurse come in and irrigate the wound. I discussed this with the patient's nurse today who agreed to clean the wound and put new dressings on it. I authorized an additional dose of morphine for this extra dressing change given the patient has severe pain whenever her dressings are removed. We are still looking for a nursing facility to accept the patient. Patient has no other complaints. 09/16/2019 Patient doing much better today compared to yesterday. States her wound is less painful since her nurse Yareli irrigated it with saline yesterday. She is ambulating a bit more around the halls but still requires a great deal of assistance with her wound care she has no new complaints today. We are still waiting for a bed at a SNF.. 09/18/2019 Patient seems to be doing well today overall but she is having some new pain and discomfort in her groin area due to what appears to be a fungal infection. Nystatin cream is causing a burning sensation per patient and I have discussed with the nurse to switch this to a powder. I will also give her a one-time dose of Diflucan oral today to help this clear up more quickly. Her wound looks good today and is still continuing to heal slowly. Still no word on if she is going to a SNF anytime soon. Reason For Visit: SEPSIS,BUTTOCKS ABSCESS Physical Exam Vital Signs: Temp Pulse Resp BP Pulse Ox 97.5 F 89 18 93/76 L 98 09/18/19 12:00 09/18/19 12:00 09/18/19 12:00 09/18/19 12:00 09/18/19 12:00 Intake & Output 09/17/19 09/18/19 09/19/19 06:59 06:59 06:59 Intake Total 1150 1162 500 Balance 1150 1162 500 Weight 197.9 kg 197.4 kg General appearance: PRESENT: morbidly obese Head exam: PRESENT: atraumatic, normocephalic Eye exam: PRESENT: conjunctiva pink, EOMI, PERRLA. ABSENT: scleral icterus Mouth exam: PRESENT: moist Respiratory exam: PRESENT: clear to auscultation marleny. ABSENT: rales, rhonchi, wheezes Cardiovascular exam: PRESENT: RRR. ABSENT: diastolic murmur, rubs, systolic murmur GI/Abdominal exam: PRESENT: normal bowel sounds, soft. ABSENT: distended, guarding, mass, organolmegaly, rebound, tenderness Neurological exam: PRESENT: alert, awake, oriented to person, oriented to place, oriented to time, oriented to situation Psychiatric exam: PRESENT: appropriate affect, normal mood Skin exam: PRESENT: dry, warm, other - Buttock wound well-appearing and healing slowly. Diffuse cutaneous fungal infection on scalp, pannus, groin area Results Laboratory Results: 09/10/19 05:49 09/10/19 05:49 Impressions: Extremity Ultrasound 09/03/19 05:34 IMPRESSION: Moderate soft tissue edema/cellulitis of the right gluteal region. Limitation. Assessment and Plan - Diagnosis (1) Perirectal abscess Is this a current diagnosis for this admission?: Yes (2) Hypertension Is this a current diagnosis for this admission?: Yes (3) Morbid obesity with BMI of 70 and over, adult Is this a current diagnosis for this admission?: Yes (4) Necrotizing soft tissue infection Is this a current diagnosis for this admission?: Yes (5) Prediabetes Is this a current diagnosis for this admission?: Yes (6) Sepsis Qualifiers: Sepsis type: sepsis due to unspecified organism Sepsis acute organ dysf unction status: unspecified Qualified Code(s): A41.9 - Sepsis, unspecified organism Is this a current diagnosis for this admission?: Yes (7) Depression Is this a current diagnosis for this admission?: Yes (8) Cutaneous candidiasis Is this a current diagnosis for this admission?: Yes Plan: Likely exacerbated by systemic antibiotics Nystatin powder Fluconazole 150 mg x 1 dose - Plan Summary Summary: Wound culture is yielding multiple organisms including gram-positive cocci in chains, Clostridium non-perfringens, E. coli and she had a blood culture that grew Staphylococcus in clusters. Blood culture has been negative. There was just 1 blood culture out of 4+ possibly contaminant. Looking at a profile of antibiotic sensitivity including E. coli I think ceftriaxone is probably a good choice as this will also cover the multiple gram-positive organisms. I will change antibiotics to ceftriaxone. Her white count is down to 14,000 09/06 count is slightly elevated however patient remains clinically stable. I did change to ceftriaxone yesterday. Cultures do seem to be susceptible to that. I will hold off on changing antibiotics and reevaluate tomorrow. There i s also the possibility that she may go to the OR as per surgery 09/07 WBC improved, continue same abx tatus post wide debridement of ischial abscess. Wound apparently doing better and no need for wound VAC or for the OR intervention at this time. Patient will need to go to rehab as she will need wound care which she cannot provide a currently provided by family. She is still on IV antibiotics although she has improved with a white count coming down from 29.2-12.6. Wound culture is yielding multiple organisms. Patient is currently on ceftriaxone but I believe this can be changed to oral antibiotics in a few days and probably discharge to rehab early next week s - Time Time Spent with patient: 15-24 minutes Medications reviewed and adjusted accordingly: Yes Anticipated discharge: Home - Inpatient Certification Based on my medical assessment, after consideration of the patient's comorbidities, presenting symptoms, or acuity I expect that the services needed warrant INPATIENT care.: Yes I certify that my determination is in accordance with my understanding of Medicare's requirements for reasonable and necessary INPATIENT services [42 CFR 412.3e].: Yes Medical Necessity: Significant Comorbidiites Make Outpatient Treatment Too Risky, Need Close Monitoring Due to Risk of Patient Decompensation, Need for IV Antibiotics, Risk of Complication if Not Cared For in Hospital, Risk of Diagnosis Which Will Require Inpatient Eval/Care/Monitoring
[2019-09-19] MEDS: HEPARIN SOD (PORCINE) 5,000 UNIT/ML 1 ML VIAL SUBCUT SCH ×3 (05:41→22:28)
[2019-09-19] MEDS: IBUPROFEN 800 MG TABLET PO SCH ×3 (08:01→17:42)
[2019-09-19] MEDS: MORPHINE SULFATE 10 MG/ML INJ IV PRN ×4 (08:01→23:37)
[2019-09-19] MEDS: INSULIN LISPRO 100 UNIT/ML 3 ML VIAL SUBCUT SCH ×4 (08:08→22:18)
[2019-09-19] MEDS: LISINOPRIL 10 MG TABLET PO SCH (09:55)
[2019-09-19] MEDS: NIFEDIPINE 30 MG TAB.ER.24 PO SCH (09:55)
[2019-09-19] MEDS: DIPHENHYDRAMINE HCL 25 MG CAPSULE PO PRN ×2 (09:55→17:47)
[2019-09-19] MEDS: DOCUSATE SODIUM 100 MG CAPSULE PO SCH ×2 (09:55→17:42)
[2019-09-19] MEDS: NYSTATIN CREAM 15 GM TP SCH (09:56)
[2019-09-19] MEDS: ESCITALOPRAM OXALATE 10 MG TABLET PO SCH (09:56)
[2019-09-19] MEDS: CHLORTHALIDONE 25 MG TABLET PO SCH (09:56)
[2019-09-19] MEDS: FAMOTIDINE 20 MG TABLET PO SCH ×2 (09:56→22:29)
[2019-09-19] MEDS: METOPROLOL TARTRATE 25 MG TABLET PO SCH ×2 (09:56→22:28)
[2019-09-19] MEDS: OXYCODONE-ACETAMINOPHEN 5-325 MG TABLET PO PRN ×2 (14:55→22:22)
--- NOTE | 2019-09-19 16:55 | PDOC PROGRESS REPORT ---
Subjective Progress Note for:: 09/19/19 Subjective:: 09/11/2019 Patient overall doing quite well today. She is having a great deal of pain during her dressing changes but otherwise her pain is well controlled. We will start transitioning her to oral pain medications rather than IV and I recommended that these be given her approximately 30 minutes prior to her dressing change. She is interested in starting a vegan diet and we spent a great deal of time talking about this yesterday. She has no new complaints. Surgery has signed off. We are waiting for her to be accepted at a nursing facility for wound care. 09/12/2019 Patient overall doing quite well other than having some new itching in her wounds which she associates with the healing process. PRN Benadryl has been ordered for this. Lotions have thus far been unsuccessful per nursing. Pain is well controlled for the most part when she is not having dressing changes. Blood pressure elevated and her medications have been increased today. We await placement for her to SNF. We will need to check her coronavirus test which is required for admission to any of the local nursing facilities. 09/14/2019 We are still waiting on SNF placement for patient. She was going to go to facility yesterday but her bed was given back to patient that was already st aying there. I have prescribed her metformin that she can start taking after discharge. Her wound is healing gradually and appears to have clean pink healthy tissue. Greatly concerned that the patient will pass stool onto her wound and have a recurrence of her abscess/sepsis/infection. She needs to be sent to a SNF rather than home with home health as she requires an enormous amount of assistance due to the size and location of her wound in relation to her massive body size that limits her ability to clean and care for herself. She is not and only has a 13-year-old daughter at home for the patient states is unable to care for her wounds. Patient has no specific complaints today other than some mild itching at the wound intermittently which is relieved by Benadryl. 09/15/2019 Patient rather upset during our encounter this morning due to her wound packing falling into the toilet while she was having a large bowel movement this morning. She was upset that the nurse removed the packing and then used a wipe to clean her wound. Patient states her wound as a burning sensation from the cleaning, call and request that her current nurse come in and irrigate the wound. I discussed this with the patient's nurse today who agreed to clean the wound and put new dressings on it. I authorized an additional dose of morphine for this extra dressing change given the patient has severe pain whenever her dressings are removed. We are still looking for a nursing facility to accept the patient. Patient has no other complaints. 09/16/2019 Patient doing much better today compared to yesterday. States her wound is less painful since her nurse Yareli irrigated it with saline yesterday. She is ambulating a bit more around the halls but still requires a great deal of assistance with her wound care she has no new complaints today. We are still waiting for a bed at a SNF.. 09/18/2019 Patient seems to be doing well today overall but she is having some new pain and discomfort in her groin area due to what appears to be a fungal infection. Nystatin cream is causing a burning sensation per patient and I have discussed with the nurse to switch this to a powder. I will also give her a one-time dose of Diflucan oral today to help this clear up more quickly. Her wound looks good today and is still continuing to heal slowly. Still no word on if she is going to a SNF anytime soon. 09/19/2019 Rather severe cutaneous yeast infection seems to be improving patient notes that the itching is much improved. We will continue this every 72 hours for a total of 3 doses. She will need to follow-up with dermatology outpatient for this and her chronic eczema. She has no new complaints today. We are awaiting placement at nursing facility. Reason For Visit: SEPSIS,BUTTOCKS ABSCESS Physical Exam Vital Signs: Temp Pulse Resp BP Pulse Ox 97.6 F 73 18 110/53 L 98 09/19/19 15:31 09/19/19 15:31 09/19/19 15:31 09/19/19 15:31 09/19/19 15:31 Intake & Output 09/18/19 09/19/19 09/20/19 06:59 06:59 06:59 Intake Total 1162 1620 620 Balance 1162 1620 620 Weight 197.4 kg 197.4 kg General appearance: PRESENT: no acute distress, well-developed, well-nourished Head exam: PRESENT: atraumatic, normocephalic Eye exam: PRESENT: conjunctiva pink Mouth exam: PRESENT: moist Respiratory exam: PRESENT: clear to auscultation marleny. ABSENT: rales, rhonchi, wheezes Cardiovascular exam: PRESENT: RRR. ABSENT: diastolic murmur, rubs, systolic murmur GI/Abdominal exam: PRESENT: normal bowel sounds, soft. ABSENT: distended, guarding, mass, organolmegaly, rebound, tenderness Neurological exam: PRESENT: alert, awake, oriented to person, oriented to place, oriented to time, oriented to situation Skin exam: PRESENT: dry, rash - Candidal rash on scalp and pannus/groin seems to be a bit better today, warm, other - Buttock wound well-appearing and healing today Results Laboratory Results: 09/10/19 05:49 09/10/19 05:49 Impressions: Extremity Ultrasound 09/03/19 05:34 IMPRESSION: Moderate soft tissue edema/cellulitis of the right gluteal region. Limitation. Assessment and Plan - Diagnosis (1) Perirectal abscess Is this a current diagnosis for this admission?: Yes (2) Hypertension Is this a current diagnosis for this admission?: Yes (3) Morbid obesity with BMI of 70 and over, adult Is this a current diagnosis for this admission?: Yes (4) Necrotizing soft tissue infection Is this a current diagnosis for this admission?: Yes (5) Prediabetes Is this a current diagnosis for this admission?: Yes (6) Sepsis Qualifiers: Sepsis type: sepsis due to unspecified organism Sepsis acute organ dysfunction status: unspecified Qualified Code(s): A41.9 - Sepsis, unspecified organism Is this a current diagnosis for this admission?: Yes (7) Depression Is this a current diagnosis for this admission?: Yes (8) Cutaneous candidiasis Is this a current diagnosis for this admission?: Yes Plan: Likely exacerbated by systemic antibiotics Nystatin powder Fluconazole 150 mg to be given every 72 hours for 3 doses total - Plan Summary Summary: Wound culture is yielding multiple organisms including gram-positive cocci in chains, Clostridium non-perfringens, E. coli and she had a blood culture that grew Staphylococcus in clusters. Blood culture has been negative. There was just 1 blood culture out of 4+ possibly contaminant. Looking at a profile of antibiotic sensitivity including E. coli I think ceftriaxone is probably a good choice as this will also cover the multiple gram-positive organisms. I will change antibiotics to ceftriaxone. Her white count is down to 14,000 09/06 count is slightly elevated however patient remains clinically stable. I did change to ceftriaxone yesterday. Cultures do seem to be susceptible to that. I will hold off on changing antibiotics and reevaluate tomorrow. There is also the possibility that she may go to the OR as per surgery 09/07 WBC improved, continue same abx tatus post wide debridement of ischial abscess. Wound apparently doing better and no need for wound VAC or for the OR intervention at this time. Patient will need to go to rehab as she will need wound care which she cannot provide a currently provided by family. She is still on IV antibiotics although she has improved with a white count coming down from 29.2-12.6. Wound culture is yielding multiple organisms. Patient is currently on ceftriaxone but I believe this can be changed to oral antibiotics in a few days and probably discharge to rehab early next week s - Inpatient Certification Based on my medical assessment, after consideration of the patient's comorbidities, presenting symptoms, or acuity I expect that the services needed warrant INPATIENT care.: Yes I certify that my determination is in accordance with my understanding of Medicare's requirements for reasonable and necessary INPATIENT services [42 CFR 412.3e].: Yes Medical Necessity: Significant Comorbidiites Make Outpatient Treatment Too Risky, Need Close Monitoring Due to Risk of Patient Decompensation, Risk of Complication if Not Cared For in Hospital, Risk of Diagnosis Which Will Require Inpatient Eval/Care/Monitoring
[2019-09-19] MEDS: NYSTATIN TOPICAL POWDER 15 GM TP SCH (17:42)
[2019-09-20 05:44] LABS: ABSOLUTE BASOPHILS # (AUTO) 0.1 10^3/uL (0.0-0.2); ABSOLUTE EOSINOPHILS # (AUTO) 0.5 10^3/uL (0.0-0.6); ABSOLUTE LYMPHOCYTES (AUTO) 2.8 10^3/uL (0.5-4.7); ABSOLUTE MONOCYTES (AUTO) 0.6 10^3/uL (0.1-1.4); ABSOLUTE NEUT (AUTO) 2.3 10^3/uL (1.7-8.2); BASOPHILS % (AUTO) 0.9 % (0-2); EOSINOPHILS % (AUTO) 8.5 % (0-6); HEMATOCRIT 33.7 % (36.0-47.0); HEMOGLOBIN 11.1 g/dL (12.0-15.5); LYMPHOCYTES % (AUTO) 43.7 % (13-45); MEAN CORPUSCULAR HEMOGLOBIN 24.7 pg (27.0-33.4); MEAN CORPUSCULAR VOLUME 75 fl (80-97); MONOCYTES % (AUTO) 9.7 % (3-13); PLATELET COUNT 556 10^3/uL (150-450); RED CELL DISTRIBUTION WIDTH 18.5 % (11.5-14.0); SEGMENTED NEUTROPHILS % (AUTO) 37.2 % (42-78); TOTAL CELLS COUNTED % (AUTO) 100 %; WHITE BLOOD COUNT 6.3 10^3/uL (4.0-10.5)
[2019-09-20 06:06] LABS: ANION GAP 8 (5-19); BLOOD UREA NITROGEN 47 mg/dL (7-20); CALCIUM 9.8 mg/dL (8.4-10.2); CARBON DIOXIDE 27 mmol/L (22-30); CHLORIDE 101 mmol/L (98-107); GLUCOSE 112 mg/dL (75-110); POTASSIUM 5.8 mmol/L (3.6-5.0)
[2019-09-20] MEDS: HEPARIN SOD (PORCINE) 5,000 UNIT/ML 1 ML VIAL SUBCUT SCH ×3 (06:11→22:29)
[2019-09-20] MEDS: DIPHENHYDRAMINE HCL 25 MG CAPSULE PO PRN ×2 (06:14→22:21)
[2019-09-20] MEDS: OXYCODONE-ACETAMINOPHEN 5-325 MG TABLET PO PRN ×3 (06:14→22:20)
[2019-09-20] MEDS: IBUPROFEN 800 MG TABLET PO SCH (08:05)
[2019-09-20] MEDS: INSULIN LISPRO 100 UNIT/ML 3 ML VIAL SUBCUT SCH ×4 (08:05→21:59)
[2019-09-20] MEDS: MORPHINE SULFATE 10 MG/ML INJ IV PRN ×2 (08:15→15:36)
[2019-09-20] MEDS ORDERED: NORMAL SALINE 1000 ML 1,000 ML IV ONE (09:30)
[2019-09-20] MEDS: ESCITALOPRAM OXALATE 10 MG TABLET PO SCH (10:26)
[2019-09-20] MEDS: FAMOTIDINE 20 MG TABLET PO SCH ×2 (10:26→22:21)
[2019-09-20] MEDS: METOPROLOL TARTRATE 25 MG TABLET PO SCH ×2 (10:26→22:21)
[2019-09-20] MEDS: DOCUSATE SODIUM 100 MG CAPSULE PO SCH ×2 (10:26→17:49)
[2019-09-20] MEDS: NYSTATIN TOPICAL POWDER 15 GM TP SCH ×2 (10:28→17:49)
[2019-09-20] MEDS: NIFEDIPINE 30 MG TAB.ER.24 PO SCH (10:29)
[2019-09-20] MEDS ORDERED: LACTULOSE SYRUP 20 GM/30 ML UDCUP PO ONE (11:30)
[2019-09-20 14:25] LABS: ANION GAP 6 (5-19); BLOOD UREA NITROGEN 44 mg/dL (7-20); CALCIUM 9.2 mg/dL (8.4-10.2); CARBON DIOXIDE 26 mmol/L (22-30); CHLORIDE 103 mmol/L (98-107); GLUCOSE 107 mg/dL (75-110); POTASSIUM 5.3 mmol/L (3.6-5.0)
--- NOTE | 2019-09-20 15:07 | PDOC PROGRESS REPORT ---
Subjective Progress Note for:: 09/20/19 Subjective:: FACUNDO MARTINEZ is a 34 year old female with a past medical history of hypertension, depression, and morbid obesity who was admitted 09/03/2019 with a perirectal abscess requiring surgical intervention. Patient was seen on morning rounds. She is found resting in bed on room air. Currently in prone position, breathing without difficulty. She reports continued wound discomfort; concerned about pain management on oral medications post d/c. Also reports dry, flaky, skin to face similar to prior eczema flares. She denies fever, chills, chest pain, palpitations, dyspnea, abdominal pain, nausea. She has no other questions or concerns at this time. Reason For Visit: SEPSIS,BUTTOCKS ABSCESS Physical Exam Vital Signs: Temp Pulse Resp BP Pulse Ox 97.6 F 71 17 131/55 H 99 09/20/19 12:00 09/20/19 12:00 09/20/19 12:00 09/20/19 12:00 09/20/19 12:00 Intake & Output 09/19/19 09/20/19 09/21/19 06:59 06:59 06:59 Intake Total 2664 944 2948 Balance 8462 468 6152 Weight 197.4 kg 197.4 kg General appearance: PRESENT: no acute distress, cooperative, morbidly obese, well-developed, well-nourished Head exam: PRESENT: atraumatic, normocephalic Eye exam: PRESENT: conjunctiva pink, EOMI, PERRLA. ABSENT: scleral icterus Mouth exam: PRESENT: moist, tongue midline Respiratory exam: PRESENT: clear to auscultation marleny, symmetrical, unlabored. ABSENT: rales, rhonchi, wheezes Cardiovascular exam: PRESENT: RRR Pulses: PRESENT: normal dorsalis pedis pul Vascular exam: PRESENT: normal capillary refill Extremities exam: PRESENT: full ROM. ABSENT: calf tenderness, clubbing, pedal edema Neurological exam: PRESENT: alert, awake, oriented to person, oriented to place, oriented to time, oriented to situation, CN II-XII grossly intact. ABSENT: motor sensory deficit Psychiatric exam: PRESENT: appropriate affect, normal mood. ABSENT: homicidal ideation, suicidal ideation Skin exam: PRESENT: dry, warm. ABSENT: cyanosis, intact - buttocks wound s/p surgical debridement. Clean, dry, dressing in place, rash Results Laboratory Results: 09/20/19 05:03 09/20/19 13:54 09/20/19 09/20/19 09/20/19 05:03 05:03 13:54 WBC 6.3 RBC 4.50 Hgb 11.1 L Hct 33.7 L MCV 75 L MCH 24.7 L MCHC 33.0 RDW 18.5 H Plt Count 556 H Seg Neutrophils % 37.2 L Sodium 136.1 L 135.1 L Potassium 5.8 H 5.3 H Chloride 101 103 Carbon Dioxide 27 26 Anion Gap 8 6 BUN 47 H 44 H Creatinine 2.19 H 1.97 H Est GFR ( Amer) 31 L 35 L Glucose 112 H 107 Calcium 9.8 9.2 Impressions: Extremity Ultrasound 09/03/19 05:34 IMPRESSION: Moderate soft tissue edema/cellulitis of the right gluteal region. Limitation. Assessment and Plan - Diagnosis (1) KIRA (acute kidney injury) Is this a current diagnosis for this admission?: Yes Plan: Likely secondary to lisinopril and chlorthalidone (both new medications started this admission) Both placed on Hold. 1 L NS bolus. Follow up BMP slightly improved. Continue generous IVF. Encourage p.o. fluids. Avoid nephrotoxic medications as able. Follow-up chemistry. (2) Hyperkalemia Is this a current diagnosis for this admission?: Yes Plan: Likely secondary to KIRA. Lactulose x1. IV fluids as above. Follow-up chemistry. (3) Perirectal abscess Is this a current diagnosis for this admission?: Yes Plan: Now status post surgical I&D by Dr. Carlos. Wound culture w/ polymicrobial infection Blood culture (1 of 4 bottles) shows Staph hominis. Leukocytosis is resolved. Surgery is consulted; wound care per their expertise. Patient is admitted to the medical floor. She has been empirically placed on IV vancomycin and Zosyn. Antiemetics and analgesics as needed. Discharge planning is consulted 09/05 Will change abx to Ceftriaxone 09/07 awaiting evaluation by surgery for possible intervention again today patient remains n.p.o. 09/10/2019 Her extensive wounds will require a great deal of care after discharge. She will be unable to care for her own wounds to her severe obesity and the extensive nature of her wounds. She will need to go to nursing facility but we have yet to find one that accepts her. Continued on ceftriaxone 09/11/2019 Pain seems to be only uncontrolled during dressing changes. Transition oral narcotics and off of IV options. Surgery has signed off Needs to go to SNF for wound care, not accepted yet 09/12/2019 Patient having a great deal of itching at her wounds which she associates with healing otherwise pain is very well controlled she is comfortable As needed Benadryl added 09/14/2019 Requires great deal of help caring for this wound and keeping stool out of the wound, require SNF placement and there is no bed available Antibiotics continue 09/15/2019 Wound dressings fell into the toilet during a large BM and unclear if there was any exposure of the wound to stool. Wound is been cleaned and redressed twice since then. Continue pain management local wound care Still looking for SNF that can provide wound care 09/17/2019 Healing well. Continue wound care as directed by surgery. 09/20/2019 No changes. Continue wound care per Surgery's recommendation. Follow up w/ Surgery within 1 week of d/c to SNF D/C Planning consulted for SNF placemetn. (4) Hypertension Is this a current diagnosis for this admission?: Yes Plan: Continue home dose Lisinopril. IV hydralazine as needed for blood pressure control. Appropriate pain control. Cardiac diet. 09/10/2019 BP uncontrolled IV hydralazine stopped, we can control her blood pressure with orals rather than IV PRN medications that can cause abrupt unpredictable drops Increase lisinopril dose Start chlorthalidone 09/11/2019 Uncontrolled, increased meds, added lisinopril 09/17/2019 Improved BP control Continue Lisinopril, Metoprolol, Nifedipine, and Chlorthalidone Cardiac diet 09/20/2019 Lisinopril and Chlorthalidone on hold r/t KIRA Continue Metoprolol and Nifedipine IV Hydralazine prn Cardiac diet Lifestyle modification and dietary discretion strongly advised. Patient unreceptive at this time; concerned about eczema flare and Esther infection. Unfortunately, patient has actually gained weight this admission. Will ask nursing to take patient to ED for standing scale weight for verification. roofing foreman is consulted. (5) Depression Is this a current diagnosis for this admission?: Yes Plan: Continue home dose Lexapro. (6) Prediabetes Is this a current diagnosis for this admission?: Yes Plan: A1c 6.6%. Discussed with patient has previously been on metformin. We will plan on resuming at discharge. While admitted, will provide Accu-Cheks before meals and at bedtime with Humalog for sliding scale coverage. Registered dietitian is consulted. (7) Morbid obesity with BMI of 70 and over, adult Is this a current diagnosis for this admission?: Yes Plan: BMI 72.4 Lifestyle modification and dietary discretion strongly advised. Patient unreceptive at this time; concerned about eczema flare and Esther infection. Unfortunately, patient has actually gained weight this admission. Will ask nursing to take patient to ED for standing scale weight for verification. roofing foreman is consulted. - Plan Summary Summary: Wound culture is yielding multiple organisms including gram-positive cocci in chains, Clostridium non-perfringens, E. coli and she had a blood culture that grew Staphylococcus in clusters. Blood culture has been negative. There was just 1 blood culture out of 4+ possibly contaminant. Looking at a profile of antibiotic sensitivity including E. coli I think ceftriaxone is probably a good choice as this will also cover the multiple gram-positive organisms. I will carmina nge antibiotics to ceftriaxone. Her white count is down to 14,000 09/06 count is slightly elevated however patient remains clinically stable. I did change to ceftriaxone yesterday. Cultures do seem to be susceptible to that. I will hold off on changing antibiotics and reevaluate tomorrow. There is also the possibility that she may go to the OR as per surgery 09/07 WBC improved, continue same abx tatus post wide debridement of ischial abscess. Wound apparently doing better and no need for wound VAC or for the OR intervention at this time. Patient will need to go to rehab as she will need wound care which she cannot provide a currently provided by family. She is still on IV antibiotics although she has improved with a white count coming down from 29.2-12.6. Wound culture is yielding multiple organisms. Patient is currently on ceftriaxone but I believe this can be changed to oral antibiotics in a few days and probably discharge to rehab early next week s - Time Time Spent with patient: 35 or more minutes Medications reviewed and adjusted accordingly: Yes Anticipated discharge: SNF Within: Other - Once renal function stabalizes
[2019-09-20] MEDS: NORMAL SALINE 1000 ML 1,000 ML IV PRN (15:36)
[2019-09-20] MEDS: MINERAL OIL/PETROLATUM,WHITE CREAM 114 GM TP SCH ×2 (17:50→23:56)
[2019-09-20 20:53] LABS: APPEARANCE,URINE SLIGHTLY-CLOUDY; BILIRUBIN,URINE NEGATIVE (NEGATIVE); COLOR,URINE YELLOW; GLUCOSE, URINE NEGATIVE (NEGATIVE); KETONES,URINE NEGATIVE (NEGATIVE); PROTEIN,URINE NEGATIVE (NEGATIVE); URINE SPECIFIC GRAVITY 1.014; UROBILINOGEN,URINE NEGATIVE mg/dL (<2.0)
[2019-09-21] MEDS: NORMAL SALINE 1000 ML 1,000 ML IV PRN ×2 (00:15→17:21)
[2019-09-21] MEDS: MORPHINE SULFATE 10 MG/ML INJ IV PRN ×2 (04:18→22:08)
[2019-09-21] MEDS: HEPARIN SOD (PORCINE) 5,000 UNIT/ML 1 ML VIAL SUBCUT SCH ×3 (06:40→22:08)
[2019-09-21 06:42] LABS: ANION GAP 6 (5-19); BLOOD UREA NITROGEN 41 mg/dL (7-20); CALCIUM 9.5 mg/dL (8.4-10.2); CARBON DIOXIDE 26 mmol/L (22-30); CHLORIDE 104 mmol/L (98-107); GLUCOSE 110 mg/dL (75-110)
[2019-09-21] MEDS ORDERED: SODIUM BICARBONATE 8.4% INJ 50 MEQ/50 ML DISP.SYRIN IV ONE (08:05)
[2019-09-21] MEDS ORDERED: DEXTROSE 50%-WATER 25 GM/50 ML DISP.SYRIN IV ONE (08:05)
[2019-09-21] MEDS ORDERED: INSULIN REG, HUMAN 100 UNIT/ML 3 ML VIAL (PYX) SUBCUT ONE (08:05)
[2019-09-21] MEDS: INSULIN LISPRO 100 UNIT/ML 3 ML VIAL SUBCUT SCH ×4 (08:37→21:56)
[2019-09-21] MEDS: SODIUM POLYSTYRENE SULFONATE 15 GM/60 ML PO SCH ×3 (08:56→17:04)
[2019-09-21] MEDS: FAMOTIDINE 20 MG TABLET PO SCH ×2 (08:59→22:07)
[2019-09-21] MEDS: DOCUSATE SODIUM 100 MG CAPSULE PO SCH ×2 (08:59→17:04)
[2019-09-21] MEDS: ESCITALOPRAM OXALATE 10 MG TABLET PO SCH (09:00)
[2019-09-21] MEDS ORDERED: CALCIUM GLUC IN NACL, ISO-OSM 1 GM/50 ML RTUPB IV ONE (09:00)
[2019-09-21] MEDS: METOPROLOL TARTRATE 25 MG TABLET PO SCH ×2 (09:01→22:07)
[2019-09-21] MEDS: NYSTATIN TOPICAL POWDER 15 GM TP SCH ×2 (09:01→17:21)
[2019-09-21] MEDS: MINERAL OIL/PETROLATUM,WHITE CREAM 114 GM TP SCH ×5 (09:02→22:08)
[2019-09-21] MEDS: NIFEDIPINE 30 MG TAB.ER.24 PO SCH (09:24)
[2019-09-21] MEDS: OXYCODONE-ACETAMINOPHEN 5-325 MG TABLET PO PRN ×2 (13:52→20:26)
[2019-09-21] MEDS ORDERED: FLUCONAZOLE 100 MG TABLET PO SCH (17:00)
[2019-09-21] MEDS: DIPHENHYDRAMINE HCL 25 MG CAPSULE PO PRN (20:26)
[2019-09-22] MEDS: OXYCODONE-ACETAMINOPHEN 5-325 MG TABLET PO PRN ×3 (02:34→15:09)
[2019-09-22] MEDS: NORMAL SALINE 1000 ML 1,000 ML IV PRN ×2 (02:35→10:05)
[2019-09-22] MEDS: HEPARIN SOD (PORCINE) 5,000 UNIT/ML 1 ML VIAL SUBCUT SCH ×2 (05:25→13:27)
[2019-09-22] MEDS: DIPHENHYDRAMINE HCL 25 MG CAPSULE PO PRN (05:26)
[2019-09-22] MEDS: INSULIN LISPRO 100 UNIT/ML 3 ML VIAL SUBCUT SCH ×2 (07:56→13:27)
[2019-09-22 08:28] LABS: ANION GAP 12 (5-19); BLOOD UREA NITROGEN 29 mg/dL (7-20); CALCIUM 9.5 mg/dL (8.4-10.2); CARBON DIOXIDE 22 mmol/L (22-30); CHLORIDE 102 mmol/L (98-107); GLUCOSE 123 mg/dL (75-110); POTASSIUM 4.7 mmol/L (3.6-5.0)
[2019-09-22] MEDS: DOCUSATE SODIUM 100 MG CAPSULE PO SCH (09:12)
[2019-09-22] MEDS: FAMOTIDINE 20 MG TABLET PO SCH (09:14)
[2019-09-22] MEDS: NIFEDIPINE 30 MG TAB.ER.24 PO SCH (09:14)
[2019-09-22] MEDS: ESCITALOPRAM OXALATE 10 MG TABLET PO SCH (09:14)
[2019-09-22] MEDS: METOPROLOL TARTRATE 25 MG TABLET PO SCH (09:14)
[2019-09-22] MEDS: NYSTATIN TOPICAL POWDER 15 GM TP SCH (09:15)
[2019-09-22] MEDS: MINERAL OIL/PETROLATUM,WHITE CREAM 114 GM TP SCH ×2 (09:15→13:27)
[2019-09-22] MEDS: MORPHINE SULFATE 10 MG/ML INJ IV PRN (10:05)
--- NOTE | 2019-09-22 11:35 | PDOC PROGRESS REPORT ---
Subjective Progress Note for:: 09/21/19 Subjective:: Follow-up I and D of abscess left buttock. Patient says she feels better she has no new complaints today Reason For Visit: SEPSIS,BUTTOCKS ABSCESS Physical Exam Vital Signs: Temp Pulse Resp BP Pulse Ox 97.9 F 87 12 134/76 H 98 09/22/19 06:14 09/22/19 06:14 09/22/19 06:14 09/22/19 06:14 09/22/19 06:14 Intake & Output 09/21/19 09/22/19 09/23/19 06:59 06:59 06:59 Intake Total 3175 3193 800 Output Total 3 Balance 3175 3190 800 Weight 198.2 kg 198.2 kg General appearance: PRESENT: no acute distress, morbidly obese, well-developed, well-nourished Head exam: PRESENT: atraumatic, normocephalic Eye exam: PRESENT: conjunctiva pink, EOMI, PERRLA. ABSENT: scleral icterus Ear exam: PRESENT: normal external ear exam Mouth exam: PRESENT: moist, tongue midline Neck exam: ABSENT: carotid bruit, JVD, lymphadenopathy, thyromegaly Respiratory exam: PRESENT: clear to auscultation marleny. ABSENT: rales, rhonchi, wheezes Cardiovascular exam: PRESENT: RRR, +S1, +S2. ABSENT: diastolic murmur, rubs, systolic murmur Pulses: PRESENT: normal dorsalis pedis pul Vascular exam: PRESENT: normal capillary refill GI/Abdominal exam: PRESENT: normal bowel sounds, soft. ABSENT: distended, guarding, mass, organolmegaly, rebound, tenderness Rectal exam: PRESENT: deferred Extremities exam: PRESENT: full ROM. ABSENT: calf tenderness, clubbing, pedal edema Musculoskeletal exam: PRESENT: other - dressing on L buttock Neurological exam: PRESENT: alert, awake, oriented to person, oriented to place, oriented to time, oriented to situation, CN II-XII grossly intact. ABSENT: motor sensory deficit Psychiatric exam: PRESENT: appropriate affect, normal mood. ABSENT: homicidal ideation, suicidal ideation Skin exam: PRESENT: dry, intact, rash, warm, other. ABSENT: cyanosis Results Laboratory Results: 09/20/19 05:03 09/22/19 07:38 09/22/19 07:38 Sodium 135.7 L Potassium 4.7 Chloride 102 Carbon Dioxide 22 Anion Gap 12 BUN 29 H Creatinine 1.52 H Est GFR ( Amer) 47 L Glucose 123 H Calcium 9.5 Impressions: Extremity Ultrasound 09/03/19 05:34 IMPRESSION: Moderate soft tissue edema/cellulitis of the right gluteal region. Limitation. Assessment and Plan - Diagnosis (1) Perirectal abscess Is this a current diagnosis for this admission?: Yes (2) Morbid obesity with BMI of 70 and over, adult Is this a current diagnosis for this admission?: Yes (3) Sepsis Qualifiers: Sepsis type: sepsis due to unspecified organism Sepsis acute organ dysfunction status: unspecified Qualified Code(s): A41.9 - Sepsis, unspecified organism Is this a current diagnosis for this admission?: Yes (4) Hypertension Is this a current diagnosis for this admission?: Yes (5) Prediabetes Is this a current diagnosis for this admission?: Yes (6) Hyperkalemia Is this a current diagnosis for this admission?: Yes - Plan Summary Summary: 09/20 Awaiting transfer to [facility] facility. Patient noted to be hypokalemic today. She received adequate potassium lowering agents and will recheck her potassium tomorrow. If stable she can be discharged
--- NOTE | 2019-09-22 11:45 | PDOC TRANSFER SUMMARY ---
Impression - Admit/DC Date/PCP Admission Date/Primary Care Provider: 09/03/19 09:41 EMILIANA PARSONS PA-C Discharge Date: 09/22/19 - Discharge Diagnosis (1) Perirectal abscess Is this a current diagnosis for this admission?: Yes (2) Morbid obesity with BMI of 70 and over, adult Is this a current diagnosis for this admission?: Yes (3) Sepsis Is this a current diagnosis for this admission?: Yes (4) Hypertension Is this a current diagnosis for this admission?: Yes (5) Prediabetes Is this a current diagnosis for this admission?: Yes (6) Hyperkalemia Is this a current diagnosis for this admission?: Yes - Assessment Summary: 09/20 Awaiting transfer to [facility] facility. Patient noted to be hypokalemic today. She received adequate potassium lowering agents and will recheck her potassium tomorrow. If stable she can be discharged - Additional Information Resuscitation Status: Full Code Discharge Diet: As Tolerated, Diabetic Discharge Activity: Activity As Tolerated Referrals: EMILIANA PARSONS PA-C [Primary Care Provider] - 09/23/19 1:00 pm Prescriptions: Oxycodone HCl/Acetaminophen [Percocet 5-325 mg Tablet] 1 tab PO Q4HP PRN #16 tablet PRN Reason: Cephalexin Monohydrate [Keflex 500 mg Capsule] 500 mg PO QID 3 Days #12 capsule Metformin HCl [Metformin ER Osmotic] 500 mg PO DAILY #30 tab.er.24 Nystatin [Mycostatin Topical Powder 15 gm] 1 applic TP BID #1 bottle Nifedipine [Procardia XL 30 mg Tablet] 30 mg PO DAILY #30 tab.er.24 Home Medications: Escitalopram Oxalate [Lexapro] 10 mg PO DAILY 05/03/11 Albuterol Sulfate [Proair HFA Inhalation Aerosol 8.5 gm MDI] 2 puff IH Q4HP PRN 09/03/19 Cephalexin Monohydrate [Keflex 500 mg Capsule] 500 mg PO QID 3 Days #12 capsule 09/13/19 Chlorthalidone [Hygroton 25 mg Tablet] 25 mg PO DAILY tablet 09/13/19 Diphenhydramine HCl [Benadryl 25 mg Capsule] 25 mg PO Q6HP PRN capsule 09/13/19 Docusate Sodium [Colace 100 mg Capsule] 100 mg PO BID capsule 05/04/20 Famotidine [Pepcid 20 mg Tablet] 20 mg PO Q12 tablet 09/13/19 Ibuprofen [Motrin 800 mg Tablet] 800 mg PO Q8HP PRN tablet 09/13/19 Lisinopril [Prinivil 10 mg Tablet] 40 mg PO DAILY tablet 09/13/19 Mag Hydrox/Al Hydrox/Simeth [Maalox Plus Susp 30 Udcup] 30 ml PO Q6HP PRN udc 09/13/19 Metformin HCl [Metformin ER Osmotic] 500 mg PO DAILY #30 tab.er.24 09/13/19 Metoprolol Tartrate [Lopressor 25 mg Tablet] 25 mg PO Q12 tablet 09/13/19 Ondansetron HCl/Pf [Zofran Inj/Pf 4 mg/2 ml Sdv] 4 mg IV Q6HP PRN vial 09/13/19 Oxycodone HCl/Acetaminophen [Percocet 5-325 mg Tablet] 1 tab PO Q4HP PRN #16 tablet 09/13/19 Nifedipine [Procardia XL 30 mg Tablet] 30 mg PO DAILY #30 tab.er.24 09/22/19 Nystatin [Mycostatin Topical Powder 15 gm] 1 applic TP BID #1 bottle 09/22/19 History of Present Illiness History of Present Illness: FACUNDO MARTINEZ is a 34 year old female Patient presents to the hospital with buttock pain. She was found to have a cellulitis as well as been septic and so was admitted for further management. Please see admitting history and physical as well as subsequent consultation by general surgery for full details. Hospital Course Hospital Course: Patient was admitted for management of sepsis secondary to deep tissue infection. She was started on empiric antibiotics. She was seen by surgery and she had incision and drainage of the ischial abscess done. Wound culture yielded numerous organisms and patient received a full course of antibiotics which has since been discontinued. He was initially septic but this also resolved nicely. Patient has been hemodynamically stable. She will need reevaluation of her blood pressure and adjustment of her medications for optimal blood pressure control. Patient also counseled on the need to lose weight as she is morbidly obese with a BMI of more than 70. She continues to require wound care which will need to be provided at the [facility] facility as she is unable to do this by herself. (1) Perirectal abscess Is this a current diagnosis for this admission?: Yes Plan: 09/04 Now status post surgical I&D by Dr. Carlos. Wound culture shows gram-negative rods gram-positive cocci, and gram-positive rods Blood culture (1 of 4 bottles) shows gram-positive cocci in clusters. WBCs trending down Surgery is consulted; wound care per their expertise. Patient is admitted to the medical floor. She has been empirically placed on IV vancomycin and Zosyn. Antiemetics and analgesics as needed. Discharge planning is consulted 09/05 Will change abx to Ceftriaxone 09/07 awaiting evaluation by surgery for possible intervention again today patient remains n.p.o. 09/10/2019 Her extensive wounds will require a great deal of care after discharge. She will be unable to care for her own wounds to her severe obesity and the extensive nature of her wounds. She will need to go to nursing facility but we have yet to find one that accepts her. Continued on ceftriaxone 09/11/2019 Pain seems to be only uncontrolled during dressing changes. Transition oral narcotics and off of IV options. Surgery has signed off Needs to go to SNF for wound care, not accepted yet 09/12/2019 Patient having a great deal of itching at her wounds which she associates with healing otherwise pain is very well controlled she is comfortable As needed Benadryl added -Keflex at DC to complete 14d course (2) Hypertension Is this a current diagnosis for this admission?: Yes (3) Morbid obesity with BMI of 70 and over, adult Is this a current diagnosis for this admission?: Yes (4) Necrotizing soft tissue infection Is this a current diagnosis for this admission?: Yes (5) T2DM Is this a current diagnosis for this admission?: Yes -metformin at DC (6) Sepsis Qualifiers: Sepsis type: sepsis due to unspecified organism Sepsis acute organ dysfunction status: unspecified Qualified Code(s): A41.9 - Sepsis, unspecified organism Is this a current diagnosis for this admission?: Yes (7) Depression Is this a current diagnosis for this admission?: Yes Physical Exam Vital Signs: Temp Pulse Resp BP Pulse Ox 97.9 F 87 12 134/76 H 98 09/22/19 06:14 09/22/19 06:14 09/22/19 06:14 09/22/19 06:14 09/22/19 06:14 Intake & Output 09/21/19 09/22/19 09/23/19 06:59 06:59 06:59 Intake Total 3179 0203 800 Output Total 3 Balance 3175 3190 800 Weight 198.2 kg 198.2 kg General appearance: PRESENT: no acute distress, morbidly obese, well-developed, well-nourished Head exam: PRESENT: atraumatic, normocephalic Eye exam: PRESENT: conjunctiva pink, EOMI, PERRLA. ABSENT: scleral icterus Ear exam: PRESENT: normal external ear exam Mouth exam: PRESENT: moist, tongue midline Neck exam: ABSENT: carotid bruit, JVD, lymphadenopathy, thyromegaly Respiratory exam: PRESENT: clear to auscultation marleny. ABSENT: rales, rhonchi, wheezes Cardiovascular exam: PRESENT: RRR. ABSENT: diastolic murmur, rubs, systolic murmur Pulses: PRESENT: normal dorsalis pedis pul Vascular exam: PRESENT: normal capillary refill GI/Abdominal exam: PRESENT: normal bowel sounds, soft. ABSENT: distended, guarding, mass, organolmegaly, rebound, tenderness Rectal exam: PRESENT: deferred Extremities exam: PRESENT: full ROM. ABSENT: calf tenderness, clubbing, pedal edema Musculoskeletal exam: PRESENT: other - R ischial area dressing Neurological exam: PRESENT: alert, awake, oriented to person, oriented to place, oriented to time, oriented to situation, CN II-XII grossly intact. ABSENT: motor sensory deficit Psychiatric exam: PRESENT: appropriate affect, normal mood. ABSENT: homicidal ideation, suicidal ideation Skin exam: PRESENT: dry, intact, warm. ABSENT: cyanosis, rash Results Laboratory Results: WBC 6.3 10^3/uL (4.0-10.5) 09/20/19 05:03 RBC 4.50 10^6/uL (3.72-5.28) 09/20/19 05:03 Hgb 11.1 g/dL (12.0-15.5) L 09/20/19 05:03 Hct 33.7 % (36.0-47.0) L 09/20/19 05:03 MCV 75 fl (80-97) L 09/20/19 05:03 MCH 24.7 pg (27.0-33.4) L 09/20/19 05:03 MCHC 33.0 g/dL (32.0-36.0) 09/20/19 05:03 RDW 18.5 % (11.5-14.0) H 09/20/19 05:03 Plt Count 556 10^3/uL (150-450) H 09/20/19 05:03 Lymph % (Auto) 43.7 % (13-45) 09/20/19 05:03 [place] % (Auto) 9.7 % (3-13) 09/20/19 05:03 Eos % (Auto) 8.5 % (0-6) H 09/20/19 05:03 Baso % (Auto) 0.9 % (0-2) 09/20/19 05:03 Absolute Neuts (auto) 2.3 10^3/uL (1.7-8.2) 09/20/19 05:03 Absolute Lymphs (auto) 2.8 10^3/uL (0.5-4.7) 09/20/19 05:03 Absolute Monos (auto) 0.6 10^3/uL (0.1-1.4) 09/20/19 05:03 Absolute Eos (auto) 0.5 10^3/uL (0.0-0.6) 09/20/19 05:03 Absolute Basos (auto) 0.1 10^3/uL (0.0-0.2) 09/20/19 05:03 Total Counted 100 09/08/19 05:45 Seg Neutrophils % 37.2 % (42-78) L 09/20/19 05:03 Seg Neuts % (Manual) 73 % (42-78) 09/08/19 05:45 Band Neutrophils % 6 % (3-5) H 09/03/19 02:06 Lymphocytes % (Manual) 18 % (13-45) 09/08/19 05:45 Atypical Lymphs % 1 % (0) 09/03/19 02:06 Monocytes % (Manual) 3 % (3-13) 09/08/19 05:45 Eosinophils % (Manual) 5 % (0-6) 09/08/19 05:45 Basophils % (Manual) 1 % (0-2) 09/08/19 05:45 Abs Neuts (Manual) 9.2 10^3/uL (1.7-8.2) H 09/08/19 05:45 Abs Lymphs (Manual) 2.3 10^3/uL (0.5-4.7) 09/08/19 05:45 Abs Monocytes (Manual) 0.4 10^3/uL (0.1-1.4) 09/08/19 05:45 Absolute Eos (Manual) 0.6 10^3/uL (0.0-0.6) 09/08/19 05:45 Abs Basophils (Manual) 0.1 10^3/uL (0.0-0.2) 09/08/19 05:45 Nucleated RBCs 1 /100 WBC (0) 09/08/19 05:45 Toxic Granulation 1+ 09/04/19 05:20 Platelet Comment ADEQUATE 09/08/19 05:45 Hypochromasia SLIGHT 09/08/19 05:45 Poikilocytosis 1+ 09/04/19 05:20 Anisocytosis 1+ 09/08/19 05:45 Microcytosis 1+ 09/08/19 05:45 Target Cells SLIGHT 09/04/19 05:20 Tear Drop Cells SLIGHT 09/03/19 02:06 Ovalocytes 1+ 09/04/19 05:20 PT 15.0 SEC (11.4-15.4) 09/03/19 02:06 INR 1.18 09/03/19 02:06 VBG pH 7.44 (7.30-7.42) H 09/03/19 02:43 VBG pCO2 38.0 mmHg (35-63) 09/03/19 02:43 VBG HCO3 25.5 mmol/L (20-32) 09/03/19 02:43 VBG Base Excess 1.5 mmol/L 09/03/19 02:43 Sodium 135.7 mmol/L (137-145) L 09/22/19 07:38 Potassium 4.7 mmol/L (3.6-5.0) 09/22/19 07:38 Chloride 102 mmol/L (98-107) 09/22/19 07:38 Carbon Dioxide 22 mmol/L (22-30) 09/22/19 07:38 Anion Gap 12 (5-19) 09/22/19 07:38 BUN 29 mg/dL (7-20) H 09/22/19 07:38 Creatinine 1.52 mg/dL (0.52-1.25) H 09/22/19 07:38 Est GFR ( Amer) 47 (>60) L 09/22/19 07:38 Est GFR (MDRD) Non-Af 39 (>60) L 09/22/19 07:38 Glucose 123 mg/dL (75-110) H 09/22/19 07:38 POC Glucose 99 mg/dL (70-110) 09/22/19 06:16 Hemoglobin A1c % 6.6 % (4.7-6.0) H 09/04/19 05:20 Lactic Acid 1.2 mmol/L (0.7-2.1) 09/03/19 09:09 Calcium 9.5 mg/dL (8.4-10.2) 09/22/19 07:38 Total Bilirubin 0.6 mg/dL (0.2-1.3) 09/03/19 02:06 Direct Bilirubin 0.2 mg/dL (0.0-0.4) 09/03/19 02:06 Neonat Total Bilirubin 0.4 mg/dL (0.1-1.1) 09/03/19 02:06 Neonat Direct Bilirubin 0.0 mg/dL (0.0-0.3) 09/03/19 02:06 Neonat Indirect Bili Not Reportable 09/03/19 02:06 AST 58 U/L (14-36) H 09/03/19 02:06 ALT 38 U/L (<35) H 09/03/19 02:06 Alkaline Phosphatase 156 U/L (38-126) H 09/03/19 02:06 Total Protein 7.1 g/dL (6.3-8.2) 09/03/19 02:06 Albumin 3.1 g/dL (3.5-5.0) L 09/03/19 02:06 Triglycerides 144 mg/dL (<150) 09/04/19 05:20 Cholesterol 86.40 mg/dL (0-200) 09/04/19 05:20 LDL Cholesterol Direct 52 mg/dL (<100) 09/04/19 05:20 VLDL Cholesterol 29.0 mg/dL (10-31) 09/04/19 05:20 HDL Cholesterol 12 mg/dL (>40) L 09/04/19 05:20 TSH 3.57 uIU/mL (0.47-4.68) 09/04/19 05:20 Serum HCG, Qual NEGATIVE (NEGATIVE) 09/03/19 02:06 Urine Color YELLOW 09/20/19 16:40 Urine Appearance SLIGHTLY-CLOUDY 09/20/19 16:40 Urine pH 5.0 (5.0-9.0) 09/20/19 16:40 Ur Specific [place] 1.014 09/20/19 16:40 Urine Protein NEGATIVE mg/dL (NEGATIVE) 09/20/19 16:40 Urine Glucose (UA) NEGATIVE mg/dL (NEGATIVE) 09/20/19 16:40 Urine Ketones NEGATIVE mg/dL (NEGATIVE) 09/20/19 16:40 Urine Blood SMALL (NEGATIVE) H 09/20/19 16:40 Urine Nitrite (Reflex) NEGATIVE (NEGATIVE) 09/20/19 16:40 Urine Bilirubin NEGATIVE (NEGATIVE) 09/20/19 16:40 Urine Urobilinogen NEGATIVE mg/dL (<2.0) 09/20/19 16:40 Leukocyte Esterase Rfl NEGATIVE (NEGATIVE) 09/20/19 16:40 Urine RBC (Auto) 1 /HPF 09/20/19 16:40 U Hyaline Cast (Auto) 1 /LPF 09/20/19 16:40 Urine WBC (Reflex) 3 /HPF 09/20/19 16:40 Squamous Epi Cells Auto <1 /HPF 09/20/19 16:40 Urine Mucus (Auto) RARE /LPF 09/20/19 16:40 Urine Ascorbic Acid NEGATIVE (NEGATIVE) 09/20/19 16:40 Time Trough Drawn 1341 09/06/19 13:41 Vancomycin Trough 16.5 ug/mL (5.0-20.0) 09/06/19 13:41 COVID-19 Source NASOPHARYNGEAL 09/07/19 14:30 COVID-19 (POWER) NOT DETECTED 09/07/19 14:30 Impressions: Extremity Ultrasound 09/03/19 05:34 IMPRESSION: Moderate soft tissue edema/cellulitis of the right gluteal region. Limitation. Plan Health Concerns: Transfer to [facility] facility for wound care. Time Spent: Greater than 30 Minutes Stroke Is this a Stroke Patient?: No Acute Heart Failure - Is this a Heart Failure Patient?: No
[2019-09-22 12:09] VITALS: BP 141/76
== END 2019-09-22 15:49 | DRG 853 ==
LOC: ER 22:18 → EH 09-03 09:41 → 4S 09-03 15:24
PROVIDERS: ADMIT Internal Medicine; ATTEND Internal Medicine
PROC: 5A09557 Assistance with Respiratory Ventilation, Greater than 96 Consecutive Hours, Continuous Positive Airway Pressure (ICD-10-PCS; 2019-09-03)
PROC: 0JB90ZZ Excision of Buttock Subcutaneous Tissue and Fascia, Open Approach (ICD-10-PCS; principal; 2019-09-03 11:30)
DX: A41.9 Sepsis, unspecified organism (principal); M72.6 Necrotizing fasciitis; Z68.45 Body mass index [BMI] 70 or greater, adult; K61.1 Rectal abscess; E11.52 Type 2 diabetes mellitus with diabetic peripheral angiopathy with gangrene; N17.9 Acute kidney failure, unspecified; E66.01 Morbid (severe) obesity due to excess calories; I10 Essential (primary) hypertension; E87.5 Hyperkalemia; B96.20 Unspecified Escherichia coli [E. coli] as the cause of diseases classified elsewhere; B96.7 Clostridium perfringens [C. perfringens] as the cause of diseases classified elsewhere; E87.6 Hypokalemia; B95.2 Enterococcus as the cause of diseases classified elsewhere; F32.9 Major depressive disorder, single episode, unspecified; B37.2 Candidiasis of skin and nail; Z79.899 Other long term (current) drug therapy; Z79.84 Long term (current) use of oral hypoglycemic drugs; Z87.891 Personal history of nicotine dependence
CPT/HCPCS: 00300; 36415; 76882; 80048; 80053; 80061; 80202; 81001; 82565; 82803; 82962; 83036; 83605; 84443; 84703; 85025; 85027; 85610; 87040; 87070; 87075; 87077; 87150; 87186; 87205; 87635; 94660; 94668; 94799; 96365; 96366; 96367; 96375; 99285; J0610; J0330; J0360; J0696; J1170; J1644; J1815; J1885; J2001; J2250; J2270; J2405; J2543; J2704; J3010; J3370; J3480; J3490; J7030; J7050; J7060; S0028